=== PATIENT | female | born 1970 | race Caucasian/White ===

== ENCOUNTER 2017-04-10 17:36 | Emergency (ER) | payer MEDICAID, MEDICARE ==
[~2017-04-10] VITALS: Ht 165.1 cm; Wt 70.0 kg
[~2017-04-10 17:36] MED LIST: EC-N500T7 PO; FAMO20 PO; HYDR-2768 PO; ZOFR4TAB3 SL
[2017-04-10 17:38] VITALS: BP 186/100; PULSE 83; RESP 16; TEMP 98.6; O2SAT 98
[2017-04-10] MEDS ORDERED: DOXY100C PO (18:04)
[2017-04-10] MEDS ORDERED: LOTR15T TOPICAL (18:04)
[2017-04-10] MEDS ORDERED: ERYT2GEL9 TOPICAL (18:04)
--- NOTE | 2017-04-10 18:04 | PD ---
HPI Chief Complaint: rash Time Seen by Provider: 17:55 Travel History International Travel<30 days: No Contact w/Intl Traveler<30days: No Traveled to known affect area: No History of Present Illness HPI 46-year-old female complains of painful rash on the lower abdomen. 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 Patient states that a painful rash started about 2 days ago. Patient denies any fever chills. Patient denies any other problem. PFSH Past Medical History Diminished Hearing: Yes (Deaf) Gastrointestinal Disorders: Yes (IBS) Hypertension: Yes : 2 Para: 2 Past Surgical History Section: Yes (X1, One vaginal .) Social History Alcohol Use: No Tobacco Use: Yes Substance Use: No Allergies-Medications (Allergen,Severity, Reaction): Coded Allergies: penicillin G (Unverified Allergy, Unknown, 11/17/16) Reported Meds & Prescriptions Reported Meds & Active Scripts Active Doxycycline Hyclate 100 Mg Cap 100 Mg PO BID Erythromycin Topical (Erythromycin (Acne Aid) Topical) 2 % Gel 1 Applic TOPICAL BID Lotrisone Topical (Betamethasone/Clotrimazole) 1-0.05% Cream 1 Applic TOPICAL BID Naprosyn-Ec (Naproxen) 500 Mg Tab 500 Mg PO BID Pepcid 20 Mg Tab (Famotidine) 20 Mg Tab 20 Mg PO BID Zofran ODT (Ondansetron HCl) 4 Mg Tab 4 Mg SL Q6H PRN FOR NAUSEA/VOMITING Reported Hctz (Hydrochlorothiazide) 25 Mg Tab 25 Mg PO DAILY Review of Systems General / Constitutional: No: Fever Eyes: No: Visual changes HENT: No: Headaches Cardiovascular: No: Chest Pain or Discomfort Respiratory: No: Shortness of Breath Gastrointestinal: No: Abdominal Pain Genitourinary: No: Dysuria Musculoskeletal: No: Pain Skin: No Rash Neurologic: No: Weakness Psychiatric: No: Depression Endocrine: No: Polydipsia Hematologic/Lymphatic: No: Easy Bruising Physical Exam Narrative GENERAL: Well-nourished, well-developed patient. SKIN: Focused skin assessment warm/dry. HEAD: Normocephalic. EYES: No scleral icterus. No injection or drainage. NECK: Supple, trachea midline. No JVD or lymphadenopathy. CARDIOVASCULAR: Regular rate and rhythm without murmurs, gallops, or rubs. RESPIRATORY: Breath sounds equal bilaterally. No accessory muscle use. GASTROINTESTINAL: Abdomen soft, non-tender, nondistended. MUSCULOSKELETAL: No cyanosis, or edema. BACK: Nontender without obvious deformity. No CVA tenderness. Patient has a red moist rash on the skin fold on the lower abdomen area. No discharge. No induration. Mild tenderness on palpation. Data Data Last Documented VS Vital Signs Date Time Temp Pulse Resp B/P (MAP) Pulse Ox O2 Delivery O2 Flow Rate FiO2 04/10/17 17:38 98.6 83 16 186/100 (128) 98 MDM Medical Decision Making Medical Screen Exam Complete: Yes Emergency Medical Condition: Yes Differential Diagnosis Differential diagnosis including Tinea corporis, Erythrasma Narrative Course 46-year-old female with painful red rash lower abdomen skinfold. Diagnosis Primary Impression: Tinea corporis Additional Instructions: Take medications as directed. Follow-up with personal physician. Return if worse. Med/Other Pt SpecificInfo: Prescription(s) given Scripts Doxycycline Hyclate (Doxycycline Hyclate) 100 Mg Cap 100 MG PO BID for Infection, #20 CAP 0 Refills Prov: Delvis Leigh MD 04/10/17 Erythromycin (Acne Aid) Topical (Erythromycin Topical) 2 % Gel 1 APPLIC TOPICAL BID for Rash, #1 TUBE 0 Refills Prov: Delvis Leigh MD 04/10/17 Betamethasone-Clotrimazole Topical (Lotrisone Topical) 1-0.05% Cream 1 APPLIC TOPICAL BID for Fungal infection, #15 GM 0 Refills Prov: Delvis Leigh MD 04/10/17 Disposition: 01 DISCHARGE HOME Condition: Stable Delvis Leigh MD Apr 10, 2017 18:04
[2017-04-10] MEDS ORDERED: BETAMETHASONE/CLOTRIMAZOLE CREAM 15 GM TOPICAL ONE (19:30)
[2017-04-10] MEDS ORDERED: ERYTHROMYCIN 2% TOPICAL ONE (19:30)
[2017-04-10] MEDS ORDERED: DOXYCYCLINE HYCLATE 100 MG TAB PO ONE (19:30)
== END 2017-04-10 20:00 | disposition home or self-care (01) ==
LOC: NEPE 17:36
DX: B35.4 Tinea corporis (principal); I10 Essential (primary) hypertension; Z87.19 Personal history of other diseases of the digestive system; Z79.899 Other long term (current) drug therapy; Z72.0 Tobacco use; Z88.0 Allergy status to penicillin
CPT/HCPCS: 99283

== ENCOUNTER 2017-06-23 21:26 | Emergency (ER) | payer MEDICARE, OTHER ==
[~2017-06-23] VITALS: Ht 162.6 cm; Wt 80.0 kg
[~2017-06-23 21:26] MED LIST changes: +DOXY100C PO; +ERYT2GEL9 TOPICAL; +LOTR15T TOPICAL
[2017-06-23 22:05] VITALS: BP 171/99; PULSE 90; RESP 20; TEMP 100.2; O2SAT 97
[2017-06-23] MEDS ORDERED: SODIUM CHLORIDE 0.9% FLUSH 10 ML FLUSH IVF PRN (22:30)
--- NOTE | 2017-06-23 22:55 | RADRPT ---
EXAM DATE/TIME: 06/23/2017 22:35 [facility] COMPARISON: No previous studies available for comparison. INDICATIONS : Cough MEDICAL HISTORY : None. SURGICAL HISTORY : None. ENCOUNTER: Initial ACUITY: 1 day PAIN SCORE: 0/10 LOCATION: chest FINDINGS: A single view of the chest demonstrates the lungs to be symmetrically aerated without evidence of mas s, infiltrate or effusion. The cardiomediastinal contours are unremarkable. Osseous structures are intact. CONCLUSION: No acute disease. Micah Contreras MD on June 23, 2017 at 22:52 Board Certified Radiologist. This report was verified electronically.
[2017-06-23 23:05] LABS: AUTOMATED NEUTROPHIL # 2.8 TH/MM3 (1.8-7.7); BASOPHIL % 0.5 % (0.0-2.0); EOSINOPHIL # 0.1 TH/MM3 (0-0.4); EOSINOPHIL % 2.4 % (0.0-4.0); HEMATOCRIT 40.6 % (35.0-46.0); HEMOGLOBIN 13.7 GM/DL (11.6-15.3); LYMPH % 22.2 % (9.0-44.0); MEAN CELL VOLUME 91.2 FL (80.0-100.0); MEAN CORPUSCULAR HEMOGLOBIN 30.9 PG (27.0-34.0); MEAN CORPUSCULAR HGB CONC 33.9 % (32.0-36.0); MEAN PLATELET VOLUME 8.8 FL (7.0-11.0); MONOCYTE # 0.6 TH/MM3 (0-0.9); NEUT % 60.9 % (16.0-70.0); PLATELET COUNT 213 TH/MM3 (150-450); RED BLOOD COUNT 4.45 MIL/MM3 (4.00-5.30); RED CELL DISTRIBUTION WIDTH 13.3 % (11.6-17.2); WHITE BLOOD COUNT 4.6 TH/MM3 (4.0-11.0)
--- NOTE | 2017-06-23 23:21 | PD ---
HPI . Chest pain Chief Complaint: Chest Pain Time Seen by Provider: 22:29 Travel History International Travel<30 days: No Contact w/Intl Traveler<30days: No Traveled to known affect area: No History of Present Illness HPI This is a deaf patient who presents with her deaf but hearing 6-year- old child with a chief complaint of cough, myalgias and chest pain. Onset was 3 days. 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 The 6-year-old is not a reliable machine design checker. Therefore, history is sketchy at first. PFSH Past Medical History Diminished Hearing: Yes (Deaf) Gastrointestinal Disorders: Yes (IBS) Hypertension: Yes : 2 Para: 2 Miscarriage: 0 : 0 Past Surgical History Section: Yes (X1, One vaginal .) Social History Alcohol Use: No Tobacco Use: Yes Substance Use: No Allergies-Medications (Allergen,Severity, Reaction): Coded Allergies: penicillin G (Unverified Allergy, Unknown, 06/23/17) Reported Meds & Prescriptions Reported Meds & Active Scripts Active Doxycycline Hyclate 100 Mg Cap 100 Mg PO BID Erythromycin Topical (Erythromycin (Acne Aid) Topical) 2 % Gel 1 Applic TOPICAL BID Lotrisone Topical (Betamethasone/Clotrimazole) 1-0.05% Cream 1 Applic TOPICAL BID Naprosyn-Ec (Naproxen) 500 Mg Tab 500 Mg PO BID Pepcid 20 Mg Tab (Famotidine) 20 Mg Tab 20 Mg PO BID Zofran ODT (Ondansetron HCl) 4 Mg Tab 4 Mg SL Q6H PRN FOR NAUSEA/VOMITING Reported Hctz (Hydrochlorothiazide) 25 Mg Tab 25 Mg PO DAILY Review of Systems ROS Limitations: Hearing Impaired Physical Exam Narrative GENERAL: Anxious appearing. SKIN: warm/dry. Normal color. HEAD: Normocephalic. Atraumatic. EYES: Pupils equal and round. No scleral icterus. No injection or drainage. ENT: No nasal bleeding or discharge. Mucous membranes pink and moist. NECK: Trachea midline. Full range of motion without pain.. CARDIOVASCULAR: Regular rate and rhythm. Heart sounds are normal. RESPIRATORY: Frequent dry cough. No accessory muscle use. Clear to auscultation. Breath sounds equal bilaterally. MUSCULOSKELETAL: No obvious deformities. NEUROLOGICAL: Moving all 4 extremities equally. No obvious cranial nerve deficits. PSYCHIATRIC: Unable to assess. Data Data Last Documented VS Vital Signs Date Time Temp Pulse Resp B/P (MAP) Pulse Ox O2 Delivery O2 Flow Rate FiO2 06/23/17 22:05 100.2 90 20 171/99 (123) 97 Orders Orders Electrocardiogram (06/23/17 22:30) Basic Metabolic Panel (Bmp) (06/23/17 22:30) Complete Blood Count With Diff (06/23/17 22:30) Lactic Acid Sepsis Protocol (06/23/17 22:30) Influenzae A/B Antigen (06/23/17 22:30) Blood Culture (06/23/17 22:30) Chest, Single Ap (06/23/17 22:30) Iv Access Insert/Monitor (06/23/17 22:30) Sodium Chloride 0.9% Flush (Ns Flush) (06/23/17 22:30) Troponin I (06/23/17 22:30) Chlorphenir-Hydrocodone Liq (Tussionex L (06/23/17 23:30) Labs Laboratory Tests Test 06/23/17 22:35 06/23/17 22:48 White Blood Count 4.6 TH/MM3 Red Blood Count 4.45 MIL/MM3 Hemoglobin 13.7 GM/DL Hematocrit 40.6 % Mean Corpuscular Volume 91.2 FL Mean Corpuscular Hemoglobin 30.9 PG Mean Corpuscular Hemoglobin Concent 33.9 % Red Cell Distribution Width 13.3 % Platelet Count 213 TH/MM3 Mean Platelet Volume 8.8 FL Neutrophils (%) (Auto) 60.9 % Lymphocytes (%) (Auto) 22.2 % Monocytes (%) (Auto) 14.0 % Eosinophils (%) (Auto) 2.4 % Basophils (%) (Auto) 0.5 % Neutrophils # (Auto) 2.8 TH/MM3 Lymphocytes # (Auto) 1.0 TH/MM3 Monocytes # (Auto) 0.6 TH/MM3 Eosinophils # (Auto) 0.1 TH/MM3 Basophils # (Auto) 0.0 TH/MM3 CBC Comment DIFF FINAL Differential Comment Blood Urea Nitrogen 7 MG/DL Creatinine 0.80 MG/DL Random Glucose 86 MG/DL Calcium Level 8.4 MG/DL Sodium Level 138 MEQ/L Potassium Level 5.1 MEQ/L Chloride Level 103 MEQ/L Carbon Dioxide Level 26.9 MEQ/L Anion Gap 8 MEQ/L Estimat Glomerular Filtration Rate 78 ML/MIN Troponin I LESS THAN 0.02 NG/ML Lactic Acid Level 0.5 mmol/L MDM Medical Decision Making Medical Screen Exam Complete: Yes Emergency Medical Condition: Yes Interpretation(s) EKG shows a sinus rhythm with a rate of 79. No ST segment elevation or depression. Differential Diagnosis Differential diagnosis includes but is not limited to viral respiratory illness , bronchitis, pneumonia, allergies, CHF, asthma/COPD. Narrative Course This is a deaf patient who presents with a chief complaint of cough, chest discomfort and myalgias for 3 days. She has a persistent dry cough on exam but clear lungs. Chest x-ray is clear. The chest x-ray was independently read by me. I will give her some cough medicine while awaiting her laboratory evaluation. CBC & BMP Diagram 06/23/17 22:35 Calcium Level 8.4 L trop < 0.02 LA 0.5 flu screen neg. The patient will be discharged home with symptomatic treatment. Diagnosis Primary Impression: Cough Additional Impression: Chest pain Qualified Codes: R07.9 - Chest pain, unspecified Patient Instructions: General Instructions, Upper Respiratory Infection (DC) Additional Instructions: I recommend the use of a Neti Pot. You may use a nasal spray such as Afrin for up to 3 days as needed for nasal congestion. You may take an [id number]-[id number] antihistamine such as Zyrtec, Kareen or Claritin as needed for runny secretions. You may take pseudoephedrine as needed for congestion. You will need to sign for this at the pharmacy. You may take plain Mucinex, 1200 mg twice a day as needed for thick secretions. You may take a cough syrup such as Delsym as needed for cough. Motrin as needed for fever and body aches. Throat lozenges/sprays as needed for sore throat. Warm salt water gargles for sore throat. Hot tea with lemon and honey also helps soothe a sore throat. Med/Other Pt SpecificInfo: Prescription(s) given Scripts Hydrocodone-Chlorpheniramine 12 HR Liq (Tussionex Pennkinetic Ext 12 HR Liq) 10- 8 Mg/5 Ml Susp 5 ML PO Q12H Y for COUGH AND/OR COLD SYMPTOMS, #60 ML 0 Refills Prov: Concepcion Pond MD 06/24/17 Disposition: 01 DISCHARGE HOME Condition: Stable Concepcion Pond MD Jun 23, 2017 23:21
[2017-06-23] MEDS ORDERED: CHLORPHENIR/HYDROCOD LIQUID 8 MG/10 MG/5 ML CUP PO ONE (23:30)
[2017-06-23 23:32] LABS: TROPONIN I LESS THAN 0.02 NG/ML (0.02-0.05)
[2017-06-23 23:38] LABS: BICARBONATE 26.9 MEQ/L (21.0-32.0); BLOOD UREA NITROGEN 7 MG/DL (7-18); CALCIUM 8.4 MG/DL (8.5-10.1); CHLORIDE 103 MEQ/L (98-107); GLOMERULAR FILTRATION RATE 78 ML/MIN (>89); GLUCOSE,RANDOM 86 MG/DL (74-106); SODIUM (NA) 138 MEQ/L (136-145)
[2017-06-24] MEDS ORDERED: TUSSSUS2 PO (00:05)
[2017-06-24 00:40] VITALS: BP 153/85; PULSE 80; RESP 16; O2SAT 98
[2017-06-24 08:23] VITALS: BP 152/93; PULSE 95; RESP 16; TEMP 99.4; O2SAT 98
[2017-06-24] MEDS ORDERED: ONDANSETRON HCL 4 MG/2 ML VIAL IV PUSH ONE (11:00)
[2017-06-24] MEDS ORDERED: KETOROLAC TROMETHAMINE 30 MG/ML (IVP) VIAL IV PUSH ONE (11:00)
[2017-06-24 11:12] VITALS: BP 140/89; PULSE 80; RESP 14; O2SAT 98
[2017-06-24] MEDS ORDERED: PROCHLORPERAZINE INJ 10 MG/2 ML VIAL IV PUSH ONE (11:30)
--- NOTE | 2017-06-24 11:34 | PD ---
Physical Exam Narrative This patient was seen and evaluated by previous provider. 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 History and physical exam was completed with the assistance of solar photovoltaic electrician Aaron Moore using tactile sign language since pt is blind and deaf. This is a 46yo F who is blind and deaf here with c/o generalized bodyaches, headache , coughing and left leg cramps since yesterday. Said she felt nauseous and had a pinch in her stomach. However, pt is eating crackers and has no abdominal tenderness on exam. Pt denies any recent trauma or focal neurologic deficits. On physical exam, no focal neurologic deficit. Pt had labs drawn by previous team and showed no leukocytosis. H/H normal. Troponin negative. Lactic acid normal. CXR negative. Influenza negative. Blood culture negative preliminary. Initially temperature was 100.2F. Current temp is 99.4F. Pt was given multiple pain medications for headache and back pain and now is resting comfortably in bed. Pt has her knees bend and sleeping. Pt reevaluated at bedside and feels much better. Said headache and back pain has completely resolved. Think this is more viral syndrome. This has all been translated by solar photovoltaic electrician Mr. Moore. Return precautions given. Data Data Last Documented VS Vital Signs Date Time Temp Pulse Resp B/P (MAP) Pulse Ox O2 Delivery O2 Flow Rate FiO2 06/24/17 13:31 06/24/17 12:47 66 16 97 Room Air 06/24/17 08:23 99.4 Orders Orders Electrocardiogram (06/23/17 22:30) Basic Metabolic Panel (Bmp) (06/23/17 22:30) Complete Blood Count With Diff (06/23/17 22:30) Lactic Acid Sepsis Protocol (06/23/17 22:30) Influenzae A/B Antigen (06/23/17 22:30) Blood Culture (06/23/17 22:30) Chest, Single Ap (06/23/17 22:30) Iv Access Insert/Monitor (06/23/17 22:30) Sodium Chloride 0.9% Flush (Ns Flush) (06/23/17 22:30) Troponin I (06/23/17 22:30) Chlorphenir-Hydrocodone Liq (Tussionex L (06/23/17 23:30) Ketorolac Inj (Toradol Inj) (06/24/17 11:00) Ondansetron Inj (Zofran Inj) (06/24/17 11:00) Prochlorperazine Inj (Compazine Inj) (06/24/17 11:30) Morphine Inj (Morphine Inj) (06/24/17 12:15) Ed Discharge Order (06/24/17 13:08) Labs Laboratory Tests Test 06/23/17 22:35 06/23/17 22:48 White Blood Count 4.6 TH/MM3 Red Blood Count 4.45 MIL/MM3 Hemoglobin 13.7 GM/DL Hematocrit 40.6 % Mean Corpuscular Volume 91.2 FL Mean Corpuscular Hemoglobin 30.9 PG Mean Corpuscular Hemoglobin Concent 33.9 % Red Cell Distribution Width 13.3 % Platelet Count 213 TH/MM3 Mean Platelet Volume 8.8 FL Neutrophils (%) (Auto) 60.9 % Lymphocytes (%) (Auto) 22.2 % Monocytes (%) (Auto) 14.0 % Eosinophils (%) (Auto) 2.4 % Basophils (%) (Auto) 0.5 % Neutrophils # (Auto) 2.8 TH/MM3 Lymphocytes # (Auto) 1.0 TH/MM3 Monocytes # (Auto) 0.6 TH/MM3 Eosinophils # (Auto) 0.1 TH/MM3 Basophils # (Auto) 0.0 TH/MM3 CBC Comment DIFF FINAL Differential Comment Blood Urea Nitrogen 7 MG/DL Creatinine 0.80 MG/DL Random Glucose 86 MG/DL Calcium Level 8.4 MG/DL Sodium Level 138 MEQ/L Potassium Level 5.1 MEQ/L Chloride Level 103 MEQ/L Carbon Dioxide Level 26.9 MEQ/L Anion Gap 8 MEQ/L Estimat Glomerular Filtration Rate 78 ML/MIN Troponin I LESS THAN 0.02 NG/ML Lactic Acid Level 0.5 mmol/L MDM Supervised Visit with MARY: No Diagnosis Primary Impression: Viral syndrome Additional Impressions: Headache Qualified Codes: R51 - Headache Cough Patient Instructions: General Instructions, Upper Respiratory Infection (DC) Departure Forms: Tests/Procedures Additional Instruction: I recommend the use of a Neti Pot. You may use a nasal spray such as Afrin for up to 3 days as needed for nasal congestion. You may take an kzbx-[id number]-[id number] antihistamine such as Zyrtec, Kareen or Claritin as needed for runny secretions. You may take pseudoephedrine as needed for congestion. You will need to sign for this at the pharmacy. You may take plain Mucinex, 1200 mg twice a day as needed for thick secretions. You may take a cough syrup such as Delsym as needed for cough. Motrin as needed for fever and body aches. Throat lozenges/sprays as needed for sore throat. Warm salt water gargles for sore throat. Hot tea with lemon and honey also helps soothe a sore throat. Scripts Hydrocodone-Chlorpheniramine 12 HR Liq (Tussionex Pennkinetic Ext 12 HR Liq) 10- 8 Mg/5 Ml Susp 5 ML PO Q12H Y for COUGH AND/OR COLD SYMPTOMS, #60 ML 0 Refills Prov: Concepcion Pond MD 06/24/17 Disposition: 01 DISCHARGE HOME Condition: Stable Shanice Mccoy DO Jun 24, 2017 11:34
[2017-06-24] MEDS ORDERED: MORPHINE SULFATE 4 MG/ML INJ IV PUSH ONE (12:15)
[2017-06-24 12:47] VITALS: BP 113/66; PULSE 66; RESP 16; O2SAT 97
--- NOTE | 2017-06-24 18:29 | EKG ---
Date Performed: 06/23/2017 Time Performed: 22:43:26 PTAGE: 46 years EKG: Sinus rhythm WITH SHORT MA INTERVAL POSSIBLE RIGHT VENTRICULAR CONDUCTION DELAY BORDERLINE ECG NO PREVIOUS TRACING DOCTOR: Lewis Kazt Interpretating Date/Time 06/24/2017 18:27:46
== END 2017-06-24 13:53 | disposition home or self-care (01) ==
LOC: NEPE 21:26
DX: B34.9 Viral infection, unspecified (principal); R51 Headache; R05 Cough; R07.9 Chest pain, unspecified; I10 Essential (primary) hypertension; Z72.0 Tobacco use
CPT/HCPCS: 71045; 80048; 83605; 84484; 85025; 87040; 87804; 93005; 96374; 96375; 99285; J0780; J1885; J2270; J2405

== ENCOUNTER 2017-06-26 23:19 | Inpatient (IN) | payer MEDICARE, OTHER ==
[~2017-06-26] VITALS: Ht 162.6 cm; Wt 75.0 kg
[~2017-06-26 23:19] MED LIST changes: +TUSSSUS2 PO
[2017-06-26] MEDS ORDERED: IOHEXOL 350 MG/ML 10 ML VIAL (for RAD DIAG) IVCONTRAST ONE (23:20)
[2017-06-26 23:29] VITALS: BP 148/93; PULSE 96; RESP 16; TEMP 100.9; O2SAT 97
[2017-06-26 23:31] VITALS: RESP 16; O2SAT 96
--- NOTE | 2017-06-26 23:48 | RADRPT ---
EXAM DATE/TIME: 06/26/2017 23:37 [facility] COMPARISON: CHEST SINGLE AP, June 23, 2017, 22:35. INDICATIONS : Pain to left side of chest. MEDICAL HISTORY : None. SURGICAL HISTORY : None. ENCOUNTER: Initial ACUITY: 1 day PAIN SCORE: 5/10 LOCATION: Bilateral chest FINDINGS: A single view of the chest demonstrates the lungs to be symmetrically aerated without evidence of mas s, infiltrate or effusion. The cardiomediastinal contours are unremarkable. Osseous structures are intact. CONCLUSION: No acute disease. Tor Trevino MD on June 26, 2017 at 23:45 Board Certified Radiologist. This report was verified electronically.
[2017-06-27 00:03] LABS: AUTOMATED NEUTROPHIL # 2.7 TH/MM3 (1.8-7.7); BASOPHIL % 0.4 % (0.0-2.0); EOSINOPHIL % 0.5 % (0.0-4.0); HEMATOCRIT 35.8 % (35.0-46.0); HEMOGLOBIN 12.2 GM/DL (11.6-15.3); LYMPH % 19.4 % (9.0-44.0); LYMPHOCYTE # 0.7 TH/MM3 (1.0-4.8); MEAN CELL VOLUME 90.7 FL (80.0-100.0); MEAN CORPUSCULAR HEMOGLOBIN 30.8 PG (27.0-34.0); MEAN PLATELET VOLUME 8.5 FL (7.0-11.0); MONO % 8.6 % (0.0-8.0); MONOCYTE # 0.3 TH/MM3 (0-0.9); NEUT % 71.1 % (16.0-70.0); PLATELET COUNT 127 TH/MM3 (150-450); RED BLOOD COUNT 3.95 MIL/MM3 (4.00-5.30); WHITE BLOOD COUNT 3.8 TH/MM3 (4.0-11.0)
--- NOTE | 2017-06-27 00:12 | PD ---
HPI Chief Complaint: Pain: Acute or Chronic Time Seen by Provider: 23:22 Travel History International Travel<30 days: No Contact w/Intl Traveler<30days: No Traveled to known affect area: No History of Present Illness HPI This is a 46-year-old female with a history of being blind and . The patient was seen here 2 days ago for fever and URI type symptoms. The patient presents today with her son. Reportedly her significant other is also on his way in here. The patient 2 days ago requested the photonics technician with [employer] deaf services. According to the charge nurse the service is not available overnight and they had to wait until the morning to use the service. The patient states that the sign language on video is not acceptable because she could not read and see it. Through writing and exam, patient complained of cough and left flank pain radiating to her left upper abdominal area. There is also reported a fever. Patient also states that she has pain down her legs bilaterally. 2 days ago, she had negative influenza and blood cultures were drawn at that time. Nothing has grown out from the blood cultures and influenza test was negative. The patient reportedly was at the [facility] when the paramedics picked her up. Temperature here was 100.9. PFSH Past Medical History Diminished Hearing: Yes (Deaf) Gastrointestinal Disorders: Yes (IBS) Hypertension: Yes Tetanus Vaccination: Unknown Influenza Vaccination: No ?: Not : 2 Para: 2 Miscarriage: 0 : 0 Past Surgical History Surgical History: No Previous Surgery Section: Yes (X1, One vaginal .) Social History Alcohol Use: No Tobacco Use: Yes Substance Use: No Allergies-Medications (Allergen,Severity, Reaction): Coded Allergies: penicillin G (Unverified Allergy, Unknown, 06/26/17) Reported Meds & Prescriptions Reported Meds & Active Scripts Active Tussionex Pennkinetic Ext 12 HR Liq (Hydrocodone-Chlorpheniramine 12 HR Liq) 10- 8 Mg/5 Ml Susp 5 Ml PO Q12H PRN Doxycycline Hyclate 100 Mg Cap 100 Mg PO BID Erythromycin Topical (Erythromycin (Acne Aid) Topical) 2 % Gel 1 Applic TOPICAL BID Lotrisone Topical (Betamethasone/Clotrimazole) 1-0.05% Cream 1 Applic TOPICAL BID Naprosyn-Ec (Naproxen) 500 Mg Tab 500 Mg PO BID Pepcid 20 Mg Tab (Famotidine) 20 Mg Tab 20 Mg PO BID Zofran ODT (Ondansetron HCl) 4 Mg Tab 4 Mg SL Q6H PRN FOR NAUSEA/VOMITING Reported Hctz (Hydrochlorothiazide) 25 Mg Tab 25 Mg PO DAILY Review of Systems Except as stated in HPI: all other systems reviewed are Neg General / Constitutional: Positive: Fever, No: Chills HENT: No: Headaches Cardiovascular: No: Chest Pain or Discomfort Respiratory: Positive: Cough, No: Shortness of Breath Gastrointestinal: Positive: Abdominal Pain (Left upper and left flank), No: Nausea, Vomiting, Dysphagia Genitourinary: Positive: Flank Pain (Left) Musculoskeletal: Positive: Pain (Bilateral leg) Physical Exam Narrative GENERAL: Well-nourished, well-developed patient, in no acute respiratory distress. The patient is gesturing towards me where she is complaining of pain in her flank and upper abdomen. SKIN: Focused skin assessment warm/dry. HEAD: Normocephalic/atraumatic. EYES: No scleral icterus. No injection or drainage. NECK: Supple, trachea midline. CARDIOVASCULAR: Regular rate and rhythm without murmurs, gallops, or rubs. RESPIRATORY: Breath sounds equal bilaterally. No accessory muscle use. GASTROINTESTINAL: Abdomen soft, non-tender, nondistended. Subjective left upper quadrant pain. No rebound. MUSCULOSKELETAL: No cyanosis, or edema. BACK: Subjective left CVA tenderness. Tenderness on percussion. NEUROLOGICAL: Awake and alert. Nonverbal secondary to her deafness. Cranial nerves II through XII intact. Motor and sensory grossly within normal limits. Five out of 5 muscle strength in all muscle groups. Data Data Last Documented VS Vital Signs Date Time Temp Pulse Resp B/P (MAP) Pulse Ox O2 Delivery O2 Flow Rate FiO2 06/26/17 23:31 16 96 Room Air 06/26/17 23:29 100.9 96 148/93 (111) Orders Orders Complete Blood Count With Diff (06/26/17 23:24) Comprehensive Metabolic Panel (06/26/17 23:24) Urinalysis - C+S If Indicated (06/26/17 23:24) Chest, Single Ap (06/26/17 23:24) Iv Access Insert/Monitor (06/26/17 23:24) Ecg Monitoring (06/26/17 23:24) Oximetry (06/26/17 23:24) Ct Abd/Pel W Iv Contrast(Rout) (06/26/17 23:27) Ed Urine Pregnancytest Poc (06/26/17 23:27) Oral Contrast - Adult (06/27/17 00:01) Diatrizoate Liq (Md Ventura Liq) (06/27/17 00:25) Iohexol 350 Inj (Omnipaque 350 Inj) (06/26/17 23:20) Levofloxacin 500 Mg Premix Inj (Levaquin (06/27/17 02:45) Metronidazole 500 Mg Inj (Flagyl 500 Mg (06/27/17 02:45) Metronidazole 500 Mg Inj (Flagyl 500 Mg (06/27/17 10:00) Ciprofloxacin 400 Mg Premix (Cipro 400 M (06/27/17 18:00) Admit To Inpatient (06/27/17 ) Vital Signs (Adult) Q4H (06/27/17 04:39) Activity Oob With Assistance (06/27/17 04:39) Bioinformatics Support Specialist / Telemetry .CONTINUOUS (06/27/17 04:39) Intake + Output LIUS CARLOS.QSHIFT (06/27/17 04:39) Diet Regular Basic (06/27/17 Breakfast) Sodium Chlor 0.9% 1000 Ml Inj (Ns 1000 M (06/27/17 04:39) Sodium Chloride 0.9% Flush (Ns Flush) (06/27/17 04:45) Sodium Chloride 0.9% Flush (Ns Flush) (06/27/17 09:00) Ondansetron Inj (Zofran Inj) (06/27/17 04:45) Comprehensive Metabolic Panel (06/28/17 06:00) Complete Blood Count With Diff (06/28/17 06:00) Case Management Consult (06/27/17 04:39) Scd Bilateral/Knee High LUIS CARLOS.BID (06/27/17 04:39) Adrian Bilateral/Knee High LUIS CARLOS.QSHIFT (06/27/17 04:41) Acetaminophen (Tylenol) (06/27/17 04:45) Acetamin-Hydrocod 325-5 Mg (Steele 5-325 (06/27/17 04:45) Morphine Inj (Morphine Inj) (06/27/17 04:45) Docusate Sodium-Senna (Mercedes-Colace) (06/27/17 09:00) Magnesium Hydroxide Liq (Milk Of Magnesi (06/27/17 04:45) Sennosides (Senokot) (06/27/17 04:45) Bisacodyl Supp (Dulcolax Supp) (06/27/17 04:45) Lactulose Liq (Lactulose Liq) (06/27/17 04:45) Inpatient Certification (06/27/17 ) Admit Order (Ed Use Only) (06/27/17 04:50) Labs Laboratory Tests Test 06/26/17 23:30 06/27/17 00:45 White Blood Count 3.8 TH/MM3 Red Blood Count 3.95 MIL/MM3 Hemoglobin 12.2 GM/DL Hematocrit 35.8 % Mean Corpuscular Volume 90.7 FL Mean Corpuscular Hemoglobin 30.8 PG Mean Corpuscular Hemoglobin Concent 34.0 % Red Cell Distribution Width 13.0 % Platelet Count 127 TH/MM3 Mean Platelet Volume 8.5 FL Neutrophils (%) (Auto) 71.1 % Lymphocytes (%) (Auto) 19.4 % Monocytes (%) (Auto) 8.6 % Eosinophils (%) (Auto) 0.5 % Basophils (%) (Auto) 0.4 % Neutrophils # (Auto) 2.7 TH/MM3 Lymphocytes # (Auto) 0.7 TH/MM3 Monocytes # (Auto) 0.3 TH/MM3 Eosinophils # (Auto) 0.0 TH/MM3 Basophils # (Auto) 0.0 TH/MM3 CBC Comment DIFF FINAL Differential Comment Blood Urea Nitrogen 7 MG/DL Creatinine 0.75 MG/DL Random Glucose 93 MG/DL Total Protein 6.1 GM/DL Albumin 3.2 GM/DL Calcium Level 7.7 MG/DL Alkaline Phosphatase 48 U/L Aspartate Amino Transf (AST/SGOT) 21 U/L Alanine Aminotransferase (ALT/SGPT) 15 U/L Total Bilirubin 0.1 MG/DL Sodium Level 139 MEQ/L Potassium Level 3.7 MEQ/L Chloride Level 106 MEQ/L Carbon Dioxide Level 25.1 MEQ/L Anion Gap 8 MEQ/L Estimat Glomerular Filtration Rate 84 ML/MIN Urine Color YELLOW Urine Turbidity HAZY Urine pH 5.5 Urine Specific [place] 1.016 Urine Protein NEG mg/dL Urine Glucose (UA) NEG mg/dL Urine Ketones NEG mg/dL Urine Occult Blood NEG Urine Nitrite NEG Urine Bilirubin NEG Urine Urobilinogen LESS THAN 2.0 MG/DL Urine Leukocyte Esterase NEG Urine RBC 3 /hpf Urine WBC 1 /hpf Urine Squamous Epithelial Cells 7 /hpf Urine Mucus FEW /lpf Microscopic Urinalysis Comment CULT NOT INDICATED MDM Medical Decision Making Medical Screen Exam Complete: Yes Emergency Medical Condition: Yes Differential Diagnosis Pyelonephritis versus pneumonia versus diverticulitis Narrative Course 46-year-old female who is deaf and blind, patient presents today with complaints of abdominal pain. Patient reports pain in her left flank with radiation to her left upper abdominal area. There is fever. She was seen here 2 days ago for respiratory symptoms which was negative. The patient has a white count of below 4. The patient's CT scan shows colitis. Given the patient 's symptoms and presentation and continued fever, the patient will be admitted for IV antibiotics and IV fluids. [facility]. [facility] She agrees with the above plan. Diagnosis Primary Impression: Colitis Additional Impressions: Intractable pain Deaf-mutism Legally blind Admitting Information Admitting Physician Requests: Admit Winston Parisi MD Jun 27, 2017 00:12
[2017-06-27 00:16] LABS: ALKALINE PHOSPHATASE 48 U/L (45-117); TOTAL BILIRUBIN ADULT 0.1 MG/DL (0.2-1.0); TOTAL PROTEIN 6.1 GM/DL (6.4-8.2)
[2017-06-27 00:21] LABS: ALBUMIN 3.2 GM/DL (3.4-5.0); ALT (GPT) 15 U/L (10-53); AST (GOT) 21 U/L (15-37); BICARBONATE 25.1 MEQ/L (21.0-32.0); BLOOD UREA NITROGEN 7 MG/DL (7-18); CALCIUM 7.7 MG/DL (8.5-10.1); CHLORIDE 106 MEQ/L (98-107); CREATININE 0.75 MG/DL (0.50-1.00); GLOMERULAR FILTRATION RATE 84 ML/MIN (>89); GLUCOSE,RANDOM 93 MG/DL (74-106); SODIUM (NA) 139 MEQ/L (136-145)
[2017-06-27] MEDS ORDERED: DIATRIZOATE MEGLUM/DIATRIZOATE SOD 9 ML CUP ONE (00:25)
[2017-06-27 01:35] LABS: BILIRUBIN, URINE NEG (NEG); BLOOD, URINE NEG (NEG); GLUCOSE,URINE NEG (NEG); KETONE, URINE NEG (NEG); MUCUS URINE FEW /lpf (OCC); NITRITE,URINE NEG (NEG); PH, URINE 5.5 (5.0-8.5); SQUAMOUS EPITHELIAL CELL URINE 7 /hpf (0-5); URINE COLOR YELLOW (YELLW/STRAW); URINE LEUKOCYTE ESTERASE NEG (NEG)
--- NOTE | 2017-06-27 02:08 | RADRPT ---
EXAM DATE/TIME: 06/27/2017 01:53 [facility] COMPARISON: No previous studies available for comparison. INDICATIONS : Abdomen pain with fever. IV CONTRAST: 75 cc Omnipaque 350 (iohexol) IV ORAL CONTRAST: Prescribed oral contrast ingested. RADIATION DOSE: 7.63 CTDIvol (mGy) MEDICAL HISTORY : Hypertension. Irritable bowel syndrome. SURGICAL HISTORY : section. ENCOUNTER: Initial ACUITY: 1 day PAIN SCALE: 7/10 LOCATION: Bilateral abdomen TECHNIQUE: Volumetric scanning of the abdomen and pelvis was performed. Using automated exposure control and ad justment of the mA and/or kV according to patient size, radiation dose was kept as low as reasonably achievable to obtain optimal diagnostic quality images. DICOM format image data is available electro nically for review and comparison. FINDINGS: LOWER LUNGS: The visualized lower lungs are clear. LIVER: Homogeneous density without lesion. There is no dilation of the biliary tree. No calcified gallston es. SPLEEN: Normal size without lesion. PANCREAS: Within normal limits. KIDNEYS: Normal in size and shape. There is no mass, stone or hydronephrosis. Several punctate bilateral sterling l calculi measuring 1-2 mm. ADRENAL GLANDS: 13 mm nodule right adrenal gland. Left implant normal VASCULAR: There is no aortic aneurysm. BOWEL/MESENTERY: There does appear to be wall thickening ascending and transverse colon. A. There is no free intraper itoneal air or fluid. ABDOMINAL WALL: Within normal limits. RETROPERITONEUM: There is no lymphadenopathy. BLADDER: No wall thickening or mass. Small calcification anterior urinary bladder measuring over 5 mm. REPRODUCTIVE: Within normal limits. INGUINAL: There is no lymphadenopathy or hernia. MUSCULOSKELETAL: Within normal limits for patient age. CONCLUSION: 1. Wall thickening within the ascending and transverse colon which can be seen with colitis. 2. Small right adrenal nodule likely benign. 3. Several punctate nonobstructing renal calculi. Tor Trevino MD on June 27, 2017 at 2:02 Board Certified Radiologist. This report was verified electronically.
[2017-06-27] MEDS ORDERED: metroNIDAZOLE 500 MG INJ 100 ML IV ONE (02:45)
[2017-06-27] MEDS ORDERED: LEVOFLOXACIN 500 MG PREMIX INJ 100 ML IV ONE (02:45)
[2017-06-27] MEDS: SODIUM CHLOR 0.9% 1000 ML INJ 1,000 ML IV SCH ×2 (04:39→14:39)
[2017-06-27] MEDS ORDERED: MAGNESIUM HYDROXIDE SUSP 30 ML CUP PO PRN (04:45)
[2017-06-27] MEDS ORDERED: LACTULOSE SYRUP 20 GM/30 ML CUP PO PRN (04:45)
[2017-06-27] MEDS ORDERED: SENNOSIDES 8.6 MG TAB PO PRN (04:45)
[2017-06-27] MEDS ORDERED: ACETAMINOPHEN/HYDROcodone 325 MG/5 MG TAB PO PRN (04:45)
[2017-06-27] MEDS ORDERED: BISACODYL 10 MG SUPP RECTAL PRN (04:45)
[2017-06-27] MEDS ORDERED: SODIUM CHLORIDE 0.9% FLUSH 10 ML FLUSH IV FLUSH PRN (04:45)
[2017-06-27] MEDS ORDERED: ACETAMINOPHEN 325 MG TAB PO PRN (04:45)
[2017-06-27 05:00] VITALS: BP 121/66; PULSE 98; RESP 19; O2SAT 98
--- NOTE | 2017-06-27 05:22 | HHI.HP ---
[facility] No Primary Care Physician Admission Diagnosis intractable abdominal pain, colitis, Diagnoses: (1) Sepsis Diagnosis: Principal (2) Colitis Diagnosis: Principal (3) Intractable pain Diagnosis: Principal (4) Deaf-mutism Diagnosis: Principal Travel History International Travel<30 Days: No Contact w/Intl Traveler <30 Da: No Traveled to Known Affected Are: No History of Present Illness This is a 46-year-old Deaf-Mute female with a PMH of HTN and IBS who presented to the ER with complaints of abdominal pain in addition to fever. Accompanied by and son, is blind. Patient requesting spanish medical interpreter services through [email or web address], however unavailable at this time, patient declining other spanish medical interpreter services. History obtained from patient in writing. Recent ER presentation 06/23/17 for viral syndrome. Returns now w/ abdominal pain and fever. Temp 100.9 at home. Abdominal pain diffuse, intermittent, cramping, 8/ 10. No nausea, vomiting or diarrhea. On arrival, BP 148/93, HR 96, O2 sat 97% on RA, Temp 100.9. WBC 3.8. Platelets 127. Chemistry essentially unremarkable. UA negative. CT Abdomen/Pelvis with wall thickening of ascending and transverse colon, likely colitis. CXR with no acute findings. s/ p Levaquin/Flagyl in the ER. Review of Systems Except as stated in HPI: all other systems reviewed are Neg ROS: 14 point review of systems otherwise negative. Past Family Social History Past Medical History PMH: HTN and IBS Past Surgical History PAST SURGICAL HISTORY: Allergies: Coded Allergies: penicillin G (Unverified Allergy, Unknown, 06/26/17) Family History PAST FAMILY HISTORY: Reviewed. No h/o DM or CAD Social History PAST SOCIAL HISTORY: Negative for alcohol or drugs. Positive for tobacco. Physical Exam Vital Signs Vital Signs Date Time Temp Pulse Resp B/P (MAP) Pulse Ox O2 Delivery O2 Flow Rate FiO2 06/26/17 23:31 16 96 Room Air 06/26/17 23:29 100.9 96 16 148/93 (111) 97 06/26/17 23:25 16 Physical Exam PE: GENERAL: Middle-aged white female in mild distress due to pain. Deaf/mute, communicates via handwriting. and son at bedside HEENT: PERRLA, EOMI. No scleral icterus or conjunctival pallor. No lid lag or facial droop. CARDIOVASCULAR: Regular rate and rhythm. No obvious murmurs to auscultation. No chest tenderness to palpation. RESPIRATORY: No obvious rhonchi or wheezing. Clear to auscultation. Breath sounds equal bilaterally. GASTROINTESTINAL: Abdomen soft, generalized tenderness to palpation, nondistended. BS normal. MUSCULOSKELETAL: Extremities without clubbing, cyanosis, or edema. No obvious deformities. NEUROLOGICAL: Awake, alert and oriented x4. No focal neurologic deficits. Moving both upper and lower extremities spontaneously. Laboratory Laboratory Tests Test 06/26/17 23:30 06/27/17 00:45 White Blood Count 3.8 Red Blood Count 3.95 Hemoglobin 12.2 Hematocrit 35.8 Mean Corpuscular Volume 90.7 Mean Corpuscular Hemoglobin 30.8 Mean Corpuscular Hemoglobin Concent 34.0 Red Cell Distribution Width 13.0 Platelet Count 127 Mean Platelet Volume 8.5 Neutrophils (%) (Auto) 71.1 Lymphocytes (%) (Auto) 19.4 Monocytes (%) (Auto) 8.6 Eosinophils (%) (Auto) 0.5 Basophils (%) (Auto) 0.4 Neutrophils # (Auto) 2.7 Lymphocytes # (Auto) 0.7 Monocytes # (Auto) 0.3 Eosinophils # (Auto) 0.0 Basophils # (Auto) 0.0 CBC Comment DIFF FINAL Differential Comment Blood Urea Nitrogen 7 Creatinine 0.75 Random Glucose 93 Total Protein 6.1 Albumin 3.2 Calcium Level 7.7 Alkaline Phosphatase 48 Aspartate Amino Transf (AST/SGOT) 21 Alanine Aminotransferase (ALT/SGPT) 15 Total Bilirubin 0.1 Sodium Level 139 Potassium Level 3.7 Chloride Level 106 Carbon Dioxide Level 25.1 Anion Gap 8 Estimat Glomerular Filtration Rate 84 Urine Color YELLOW Urine Turbidity HAZY Urine pH 5.5 Urine Specific [place] 1.016 Urine Protein NEG Urine Glucose (UA) NEG Urine Ketones NEG Urine Occult Blood NEG Urine Nitrite NEG Urine Bilirubin NEG Urine Urobilinogen LESS THAN 2.0 Urine Leukocyte Esterase NEG Urine RBC 3 Urine WBC 1 Urine Squamous Epithelial Cells 7 Urine Mucus FEW Microscopic Urinalysis Comment CULT NOT INDICATED Result Diagram: 06/26/17232906/26/172329 Caprini VTE Risk Assessment Caprini VTE Risk Assessment: No/Low Risk (score <= 1) Caprini Risk Assessment Model Point Value = 1 Point Value = 2 Point Value = 3 Point Value = 5 Age 41-60 Minor surgery BMI > 25 kg/m2 Swollen legs Varicose veins or History of unexplained or recurrent spontaneous Oral contraceptives or hormone replacement Sepsis (< 1 month) Serious lung disease, including pneumonia (< 1 month) Abnormal pulmonary function Acute myocardial infarction Congestive heart failure (< 1 month) History of inflammatory bowel disease Medical patient at bed rest Age 61-74 Arthroscopic surgery Major open surgery (> 45 min) Laparoscopic surgery (> 45 min) Malignancy Confined to bed (> 72 hours) Immobilizing plaster cast Central venous access Age >= 75 History of VTE Family history of VTE Factor V Leiden Prothrombin [id number] Lupus anticoagulant Anticardiolipin antibodies Elevated serum homocysteine Heparin-induced thrombocytopenia Other congenital or acquired thrombophilia Stroke (< 1 month) Elective arthroplasty Hip, pelvis, or leg fracture Acute spinal cord injury (< 1 month) Prophylaxis Regimen Total Risk Factor Score Risk Level Prophylaxis Regimen 0-1 Low Early ambulation 2 Moderate Order ONE of the following: *Sequential Compression Device (SCD) *Heparin 5000 units SQ BID 3-4 Higher Order ONE of the following medications: *Heparin 5000 units SQ TID *Enoxaparin/Lovenox 40 mg SQ daily (WT < 150 kg, CrCl > 30 mL/min) *Enoxaparin/Lovenox 30 mg SQ daily (WT < 150 kg, CrCl > 10-29 mL/min) *Enoxaparin/Lovenox 30 mg SQ BID (WT < 150 kg, CrCl > 30 mL/min) AND/OR *Sequential Compression Device (SCD) 5 or more Highest Order ONE of the following medications: *Heparin 5000 units SQ TID (Preferred with Epidurals) *Enoxaparin/Lovenox 40 mg SQ daily (WT < 150 kg, CrCl > 30 mL/min) *Enoxaparin/Lovenox 30 mg SQ daily (WT < 150 kg, CrCl > 10-29 mL/min) *Enoxaparin/Lovenox 30 mg SQ BID (WT < 150 kg, CrCl > 30 mL/min) AND *Sequential Compression Device (SCD) Assessment and Plan Problem List: (1) Sepsis ICD Code: A41.9 - Sepsis, unspecified organism (2) Colitis ICD Code: K52.9 - Noninfective gastroenteritis and colitis, unspecified (3) Intractable pain ICD Code: R52 - Pain, unspecified (4) Deaf-mutism ICD Code: H91.3 - Deaf nonspeaking, not elsewhere classified Assessment and Plan A/P: 1. Sepsis: Temp 100.9, HR 96, WBC 3.8, Source-colitis. s/p IV Abx in ER, will continue w/ IV Abx. 2. Colitis: CT Abd/Pelvis w/ colitis, images reviewed by me. Continue IV Cipro/Flagyl, repeat labs in am, IVF for hydration. 3. Intractable Abd Pain: secondary to above, analgesics/antiemetics as needed. 4. Deaf-Mute: Requesting [employer] deputy clerk of superior court services, however unable until am, declining video sign language as she has difficulty w/ vision. Communicating via handwritten messages. at bedside is blind. Son also at bedside. 5. DVT Prophylaxis: SCD/Teds. 6. Social work for d/c planning as needed. 7. Case discussed w/ ER physician at length, labs/records/imaging reviewed by me. Physician Certification 2 Midnight Certification Type: Admission for Inpatient Services Order for Inpatient Services The services are ordered in accordance with Medicare regulations or non- Medicare payer requirements, as applicable. In the case of services not specified as inpatient-only, they are appropriately provided as inpatient services in accordance with the 2-midnight benchmark. Estimated LOS (days): 2 days is the estimated time the patient will need to remain in the hospital, assuming treatment plan goals are met and no additional complications. Post-Hospital Plan: Not yet determined Daisy Art MD Jun 27, 2017 05:22
[2017-06-27] MEDS: SODIUM CHLORIDE 0.9% FLUSH 10 ML FLUSH IV FLUSH SCH ×2 (09:00→21:00)
[2017-06-27] MEDS: DOCUSATE SODIUM 50 MG/SENNA 8.6 MG TAB PO SCH ×2 (09:00→22:46)
[2017-06-27 09:03] VITALS: BP 138/88; PULSE 85; RESP 16; TEMP 99.5; O2SAT 95
[2017-06-27] MEDS: metroNIDAZOLE 500 MG INJ 100 ML IV SCH ×2 (10:16→17:03)
[2017-06-27 11:37] VITALS: BP 125/77; PULSE 83; RESP 16; TEMP 98.7; O2SAT 95
[2017-06-27] MEDS: MORPHINE SULFATE 2 MG/ML INJ IV PUSH PRN ×2 (12:04→18:05)
[2017-06-27 15:44] VITALS: BP 127/77; PULSE 87; RESP 16; TEMP 98.9; O2SAT 97
[2017-06-27] MEDS: CIPROFLOXACIN 400 MG PREMIX 200 ML IV SCH (18:05)
--- NOTE | 2017-06-27 18:24 | HHI.PR ---
Addendum To [facility] Progress Not Reason for addendum: Additonal documentation Addendum Remarks Patient seen and examined with Dr. Leonard and RN and language interpreter at bedside. She reports diffuse leg pains and associated weakness, mildly improved compared to arrival. Has continued diffuse lower abdominal pain and subjective fevers/ chills and sweats. Denies nausea/vomiting. She was having diarrhea prior to arrival, now improved. No other medical complaints at this time. Continue current plan with IV Antibiotics Cipro/Flagyl and pain control. Check for influenza. Repeat labs in am. Sepideh Macedo PA-C Jun 27, 2017 6:24 pm
[2017-06-27] MEDS: ONDANSETRON HCL 4 MG/2 ML VIAL IVP PRN (19:49)
[2017-06-27 22:31] VITALS: BP 121/80; PULSE 71; RESP 16; TEMP 97.7; O2SAT 98
[2017-06-28] VITALS (7 sets, daily range): BP systolic 116–134; BP diastolic 78–89; PULSE 60–82; RESP 14–16; TEMP 97.5–98.3; O2SAT 95–98
[2017-06-28] MEDS: ONDANSETRON HCL 4 MG/2 ML VIAL IVP PRN ×2 (00:35→17:19)
[2017-06-28] MEDS: metroNIDAZOLE 500 MG INJ 100 ML IV SCH ×3 (04:16→17:23)
[2017-06-28] MEDS: SODIUM CHLOR 0.9% 1000 ML INJ 1,000 ML IV SCH ×3 (06:15→22:56)
[2017-06-28 06:21] LABS: AUTOMATED NEUTROPHIL # 1.7 TH/MM3 (1.8-7.7); BASOPHIL % 0.5 % (0.0-2.0); EOSINOPHIL % 0.9 % (0.0-4.0); HEMATOCRIT 37.8 % (35.0-46.0); HEMOGLOBIN 12.9 GM/DL (11.6-15.3); LYMPH % 39.3 % (9.0-44.0); LYMPHOCYTE # 1.4 TH/MM3 (1.0-4.8); MEAN CELL VOLUME 90.2 FL (80.0-100.0); MEAN CORPUSCULAR HEMOGLOBIN 30.7 PG (27.0-34.0); MEAN CORPUSCULAR HGB CONC 34.1 % (32.0-36.0); MEAN PLATELET VOLUME 8.4 FL (7.0-11.0); MONO % 11.9 % (0.0-8.0); MONOCYTE # 0.4 TH/MM3 (0-0.9); NEUT % 47.4 % (16.0-70.0); PLATELET COUNT 105 TH/MM3 (150-450); RED BLOOD COUNT 4.19 MIL/MM3 (4.00-5.30); RED CELL DISTRIBUTION WIDTH 13.1 % (11.6-17.2); WHITE BLOOD COUNT 3.5 TH/MM3 (4.0-11.0)
[2017-06-28 06:47] LABS: ALBUMIN 3.1 GM/DL (3.4-5.0); AST (GOT) 13 U/L (15-37); BICARBONATE 24.4 MEQ/L (21.0-32.0); BLOOD UREA NITROGEN 4 MG/DL (7-18); CALCIUM 8.1 MG/DL (8.5-10.1); CHLORIDE 104 MEQ/L (98-107); CREATININE 0.67 MG/DL (0.50-1.00); GLOMERULAR FILTRATION RATE 96 ML/MIN (>89); GLUCOSE,RANDOM 116 MG/DL (74-106); SODIUM (NA) 137 MEQ/L (136-145)
[2017-06-28 06:49] LABS: ALT (GPT) 14 U/L (10-53)
[2017-06-28 06:52] LABS: ALKALINE PHOSPHATASE 48 U/L (45-117); TOTAL BILIRUBIN ADULT 0.2 MG/DL (0.2-1.0); TOTAL PROTEIN 6.3 GM/DL (6.4-8.2)
[2017-06-28] MEDS: CIPROFLOXACIN 400 MG PREMIX 200 ML IV SCH ×2 (07:36→18:41)
[2017-06-28] MEDS: SODIUM CHLORIDE 0.9% FLUSH 10 ML FLUSH IV FLUSH SCH ×2 (08:04→21:00)
[2017-06-28] MEDS: DOCUSATE SODIUM 50 MG/SENNA 8.6 MG TAB PO SCH ×2 (08:05→22:54)
[2017-06-28] MEDS: MORPHINE SULFATE 2 MG/ML INJ IV PUSH PRN ×2 (09:03→16:22)
[2017-06-28] MEDS ORDERED: POTASSIUM CHLORIDE 10 MEQ CONTROLLED RELEASE TAB PO ONE (11:15)
--- NOTE | 2017-06-28 12:25 | HHI.PR ---
Subjective Remarks Patient seen this morning with cooling machine operator. She says that abdominal pain much improving, however still generalized body aches. No diarrhea today. Denies any chest pain or shortness of breath. Denies any nausea or vomiting. Says she does not feel comfortable going home today. Says she is living at a half-way with her son, they have to share a small clot. Objective Vital Signs Date Time Temp Pulse Resp B/P (MAP) Pulse Ox O2 Delivery O2 Flow Rate FiO2 06/28/17 07:38 97.5 61 16 116/78 (91) 95 06/28/17 04:00 97.7 69 16 132/89 (103) 97 06/27/17 23:48 18 06/27/17 22:31 97.7 71 16 121/80 (94) 98 06/27/17 18:20 20 06/27/17 15:44 98.9 87 16 127/77 (94) 97 I/O 06/27/17 06/27/17 06/27/17 06/28/17 06/28/17 06/28/17 07:00 15:00 23:00 07:00 15:00 23:00 Intake Total 100 ml 200 ml Balance 100 ml 200 ml Intake Oral 200 ml IV Total 100 ml # Voids 1 Result Diagram: 06/28/17 0536 06/28/17 0536 Objective Remarks GENERAL: Patient sitting up in bed. Appears comfortable. SKIN: Warm and dry. HEAD: Normocephalic. EYES: No scleral icterus. No injection or drainage. NECK: Supple, trachea midline. No JVD. CARDIOVASCULAR: Regular rate and rhythm without murmurs, gallops, or rubs. RESPIRATORY: Breath sounds equal bilaterally. No accessory muscle use. GASTROINTESTINAL: Abdomen soft, nondistended. Tenderness to palpation left lower quadrant much improved. No rebound or guarding MUSCULOSKELETAL: No cyanosis, or edema. BACK: Nontender without obvious deformity. No CVA tenderness. A/P Assessment and Plan // Sepsis: Temp 100.9, HR 96, WBC 3.8, Source-colitis. s/p IV Abx in ER, will continue w/ IV Abx. = Afebrile now. Improving. Continue antibiotics. //Colitis: CT Abd/Pelvis w/ colitis, images reviewed by me. Continue IV Cipro/ Flagyl, repeat labs in am, IVF for hydration. = Symptoms improving. Still with white count of 3.5 leukopenic. Continue current treatment. //Intractable Abd Pain: secondary to above, analgesics/antiemetics as needed. = Improving. Continue to monitor. //Deaf-Mute: Requesting Tack[employer] cooling machine operator services, however unable until am, declining video sign language as she has difficulty w/ vision. Communicating via handwritten messages. at bedside is blind. Son also at bedside. = Vice President Sales [employer] Marketing assistance appreciated. //Hypokalemia. 3.2. Replace. //DVT Prophylaxis: SCD/Teds. Cholo Leonard MD Jun 28, 2017 12:25
[2017-06-29] VITALS (7 sets, daily range): BP systolic 112–145; BP diastolic 78–94; PULSE 56–97; RESP 14–20; TEMP 96.4–98.5; O2SAT 97–98
[2017-06-29] MEDS: metroNIDAZOLE 500 MG INJ 100 ML IV SCH ×3 (04:08→17:54)
[2017-06-29] MEDS: CIPROFLOXACIN 400 MG PREMIX 200 ML IV SCH ×2 (04:08→16:52)
[2017-06-29 07:41] LABS: AUTOMATED NEUTROPHIL # 1.3 TH/MM3 (1.8-7.7); BASOPHIL % 0.5 % (0.0-2.0); EOSINOPHIL # 0.1 TH/MM3 (0-0.4); EOSINOPHIL % 1.9 % (0.0-4.0); HEMATOCRIT 36.1 % (35.0-46.0); HEMOGLOBIN 12.2 GM/DL (11.6-15.3); LYMPH % 46.3 % (9.0-44.0); LYMPHOCYTE # 1.6 TH/MM3 (1.0-4.8); MEAN CELL VOLUME 89.9 FL (80.0-100.0); MEAN CORPUSCULAR HEMOGLOBIN 30.4 PG (27.0-34.0); MEAN CORPUSCULAR HGB CONC 33.8 % (32.0-36.0); MEAN PLATELET VOLUME 8.8 FL (7.0-11.0); MONO % 11.8 % (0.0-8.0); MONOCYTE # 0.4 TH/MM3 (0-0.9); NEUT % 39.5 % (16.0-70.0); PLATELET COUNT 90 TH/MM3 (150-450); RED BLOOD COUNT 4.01 MIL/MM3 (4.00-5.30); RED CELL DISTRIBUTION WIDTH 13.1 % (11.6-17.2); WHITE BLOOD COUNT 3.4 TH/MM3 (4.0-11.0)
[2017-06-29 07:49] LABS: ALBUMIN 2.9 GM/DL (3.4-5.0); BICARBONATE 25.6 MEQ/L (21.0-32.0); CALCIUM 8.1 MG/DL (8.5-10.1); CREATININE 0.6 MG/DL (0.50-1.00); MAGNESIUM 1.8 MG/DL (1.5-2.5); PHOSPHORUS 2.9 MG/DL (2.5-4.9)
[2017-06-29] MEDS: SODIUM CHLORIDE 0.9% FLUSH 10 ML FLUSH IV FLUSH SCH ×2 (09:00→21:00)
[2017-06-29] MEDS: DOCUSATE SODIUM 50 MG/SENNA 8.6 MG TAB PO SCH ×2 (09:12→21:00)
[2017-06-29] MEDS: SODIUM CHLOR 0.9% 1000 ML INJ 1,000 ML IV SCH (10:24)
--- NOTE | 2017-06-29 11:12 | PD.CONS ---
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 Recently seen and evaluated in the ER for body aches and fevers and was diagnosed with a viral illness and discharged home. Pt reports since discharge that body aches mostly in her back and neck have been getting worse and then on Tuesday she began also having lower abdominal pain. Describes as an aching sensation in her lower abdomen, bilaterally, but worse today on her left side. Reports her BMs have been sticky, she is site impaired and therefore unable to tell me whether they have been black or bloody. Also reporting a decrease in appetite but has attributed this to being sick. Unsure of weight loss because she has not weighed herself but has not noticed any changes in her size. Reports chronic constipation but does not take stool softeners, states eventually resolves on its own. Has never had EGD or colonoscopy. Family history significant for paternal aunt with colitis and a half brother with colon cancer. Denies ETOH. Currently smokes 8 cigarettes a day. Admits to marijuana use. (Vivien Carter) PFSH Past Medical History HTN and IBS Past Surgical History PAST SURGICAL HISTORY: (Vivien Carter) Coded Allergies: penicillin G (Unverified Allergy, Unknown, 06/26/17) Family History PAST FAMILY HISTORY: Reviewed. No h/o DM or CAD Social History PAST SOCIAL HISTORY: Negative for alcohol or drugs. Positive for tobacco. (Vivien Carter) Review of Systems Gastrointestinal: COMPLAINS OF: Abdominal pain, Constipation, Nausea, DENIES: Vomiting, Swelling of Abdomen, Heartburn (Vivien Carter) GI Exam Vitals I&O Vital Signs Date Time Temp Pulse Resp B/P (MAP) Pulse Ox O2 Delivery O2 Flow Rate FiO2 06/29/17 07:31 56 06/29/17 07:21 98.1 63 18 112/78 (89) 98 06/29/17 05:41 98.0 57 14 145/80 (101) 98 06/29/17 00:15 98.5 63 18 127/94 (105) 98 06/28/17 21:18 98.0 63 14 134/86 (102) 98 06/28/17 15:47 74 06/28/17 14:42 98.3 82 16 129/86 (100) 96 06/28/17 11:58 69 I/O 06/28/17 06/28/17 06/28/17 06/29/17 06/29/17 06/29/17 07:00 15:00 23:00 07:00 15:00 23:00 Intake Total 300 ml Output Total 500 ml Balance -200 ml Intake Oral 300 ml Output Urine Total 500 ml Imaging Last Impressions Abdomen/Pelvis CT 06/26/172326 Signed Impressions: Service Date/Time: Tuesday, June 27, 2017 01:53 - CONCLUSION: 1. Wall thickening within the ascending and transverse colon which can be seen with colitis. 2. Small right adrenal nodule likely benign. 3. Several punctate nonobstructing renal calculi. Tor Trevino MD Chest X-Ray 06/26/172323 Signed Impressions: Service Date/Time: Monday, June 26, 2017 23:37 - CONCLUSION: No acute disease. Tor Trevino MD Laboratory Test 06/29/17 06:30 White Blood Count 3.4 TH/MM3 Red Blood Count 4.01 MIL/MM3 Hemoglobin 12.2 GM/DL Hematocrit 36.1 % Mean Corpuscular Volume 89.9 FL Mean Corpuscular Hemoglobin 30.4 PG Mean Corpuscular Hemoglobin Concent 33.8 % Red Cell Distribution Width 13.1 % Platelet Count 90 TH/MM3 Mean Platelet Volume 8.8 FL Neutrophils (%) (Auto) 39.5 % Lymphocytes (%) (Auto) 46.3 % Monocytes (%) (Auto) 11.8 % Eosinophils (%) (Auto) 1.9 % Basophils (%) (Auto) 0.5 % Neutrophils # (Auto) 1.3 TH/MM3 Lymphocytes # (Auto) 1.6 TH/MM3 Monocytes # (Auto) 0.4 TH/MM3 Eosinophils # (Auto) 0.1 TH/MM3 Basophils # (Auto) 0.0 TH/MM3 CBC Comment AUTO DIFF Differential Comment AUTO DIFF CONFIRMED Platelet Estimate LOW Platelet Morphology Comment NORMAL Blood Urea Nitrogen 4 MG/DL Creatinine 0.60 MG/DL Random Glucose 88 MG/DL Albumin 2.9 GM/DL Calcium Level 8.1 MG/DL Phosphorus Level 2.9 MG/DL Magnesium Level 1.8 MG/DL Sodium Level 140 MEQ/L Potassium Level 3.6 MEQ/L Chloride Level 108 MEQ/L Carbon Dioxide Level 25.6 MEQ/L Anion Gap 6 MEQ/L Estimat Glomerular Filtration Rate 109 ML/MIN Date/Time Source Procedure Growth Status 06/27/17 18:47 Nasal Washing Influenza Types A,B Antigen ([place]) - Final NEGATIVE FOR FLU A AND B ANTIGEN.... Complete Physical Examination HEENT: Normocephalic; atraumatic CHEST: Even/unlabored CARDIAC: RRR ABDOMEN: Soft, nondistended, mild lower abdominal TTP; bowel sounds active EXTREMITIES: No clubbing, cyanosis, or edema. SKIN: Normal; no rash; no jaundice. 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 (Vivien Carter) Assessment and Plan Plan Assessment: - Lower abdominal pain, described as cramping with CT findings of wall thickening in the ascending and transverse colon which can be seen with colitis. Reports "sticky" BMs unsure of blood or color because she is site impaired. Has never had EGD or colonoscopy. Family history significant for half brother with colon cancer and paternal aunt with colitis - Constipation, chronic- does not take OTC medication, eventually resolves on its own - Nausea, denies emesis since Tuesday - Squeezing sensation under her ribs- unsure of aggravating or alleviating factors - Decreased appetite, unsure of weight loss, has not weighed herself but denies any noticeable change in size. - Thrombocytopenia- unclear cause, platelets now 90 - ? viral infection - Leukocytopenia- recently diagnosed with febrile illness, seen in this ER three days ago Plan: EGD/Colonoscopy tomorrow Obtain consent Clear liquids today Magnesium Citrate prep NPO after MN Monitor CBC (platelets specifically) Zofran PRN nausea Cipro Flagyl Further recommendations based on findings of above Pt has been seen and examined by myself and Dr. Hooks and this note is written on his behalf (Vivien Carter) Physician Comments Patient seen and examined Agree with above Continue with current supportive care Monitor labs Plan for an EGD and a colonoscopy tomorrow (Thomas Hooks MD) Vivien Crater Jun 29, 2017 11:12 Thomas Hooks MD Jun 29, 2017 21:43
[2017-06-29] MEDS ORDERED: MAGNESIUM CITRATE SOLN 300 ML BTL PO ONE ×2 (16:00→18:00)
--- NOTE | 2017-06-29 20:06 | MB ---
cc: Ale Pierce MD, Ruby Anne E MD Duncan,Cholo Lemon MD DATE: 06/29/2017 REFERRING PHYSICIAN: Dr. Leonard CHIEF COMPLAINT: Dr. Leonard requests a consultation for Mrs. Rodriguez regarding leukopenia and thrombocytopenia. HISTORY OF PRESENT ILLNESS: Mrs. Rodriguez is a 46-year-old woman who is hearing impaired and blind. I spoke to her via an signal inspector. She was well until when she developed upper abdominal pain radiating to the left. She had a constellation of symptoms from headache to eye pain to generalized discomfort. She came into the emergency room, was initially seen by Dr. Shanice Mccoy. She felt nauseous with generalized body aches and headaches. She had an elevated temperature. She was thought to have a viral syndrome and was discharged home. Her laboratory evaluation from 06/23/2017 shows a normal CBC. She has a mild monocytosis but the absolute monocyte count was normal. Chemistry and troponin I were normal. Calcium was slight lower limits of normal. She went home and felt bad and symptoms became progressively worse. She presented back on 06/27/2017 with progressive symptoms. She was writhing in pain in the abdomen and left flank pain. She reports fever. An imaging study was performed, which showed wall thickening within the ascending and transverse colon. There was a right adrenal gland nodule, likely benign, and several punctate nonobstructing renal calculi. She is admitted and given support. Followup CBC shows progressive leukopenia/neutropenia and thrombocytopenia. For this reason, hematology/oncology is consulted. Gastroenterology has seen the patient. They are pending endoscopic procedure tomorrow. She is receiving IV Cipro, Flagyl and hydration. She is starting to feel better. She denies any nausea or vomiting. She had difficulty understanding what white cells and platelets were. The rest of her review of systems is negative. PAST MEDICAL HISTORY: Congenital deafness, poor vision, irritable bowel syndrome, hypertension. PAST SURGICAL HISTORY: . FAMILY HISTORY: A brother had colon cancer in his 30s. SOCIAL HISTORY: Denies any alcohol or illicit drug use. She is , has a who also has a disability. She smokes. She has a 6-year-old son. ALLERGIES: PENICILLIN G. CURRENT MEDICATIONS: Cipro, metronidazole, Mercedes-Colace, Zofran, [place]. PHYSICAL EXAMINATION: VITAL SIGNS: Temperature 97.8, heart rate 97, respiratory rate 16, blood pressure 139/94, saturation 97%. GENERAL: Mrs. Rodriguez is a well-developed, well-nourished woman, who looks older than stated age. HEENT: Pupils are round, reactive to light and accommodation. Oropharynx with poor dentition. NECK: Supple. LUNGS: Clear. CARDIOVASCULAR: Reveals a mild tachycardia. ABDOMEN: Soft with tenderness in the left upper quadrant. No rebound or guarding. Well-healed scar low abdominally. EXTREMITIES: Lower with no edema. NEUROLOGIC: Nonfocal. She is able to communicate via signal inspector with sign language. LABORATORY DATA: Shows a leukopenia, white blood cell count 3.4, mild increase in monocyte percentage, ANC of 1300. Platelet count decreased from her initial evaluation of 213,000, down to 112,000 to 90,000 at the time of the consultation. Platelet count on 06/23/2017 was 213, platelet count on 06/26/2017 was 127, platelet count 06/29/2017 was 90,000. ASSESSMENT AND PLAN: Mrs. Rodriguez is a 46-year-old woman with visual impairment as well as being a deaf mute. She communicates via sign language and an signal inspector. She comes in with abdominal pain. CT scan of the abdomen shows thickened ascending and transverse colon. It appears that she has evidence of colitis. I discussed with Ms. Rodriguez at length via the signal inspector the above findings. Gastroenterology is consulted and will evaluate for underlying colitis. She is worried about colon cancer in light of her brother being diagnosed with colon cancer at age 34. We discussed the laboratory abnormalities. She came in with a normal CBC. Subsequent CBC showed decreasing trend in her white blood cell count and platelet count. I suspect that this is related to her acute illness. I anticipate that it would resolve with resolution of the underlying problem. Diagnostic procedure is still pending. She has had no heparin exposure to alert us to a heparin-induced thrombocytopenia. She is at increased risk for venous thromboembolic event. I anticipate starting low molecular weight heparin prophylaxis after her procedure. She has no overt bleeding. We will check for heparin-induced thrombocytopenia antibody, although the clinical suspicion of this is quite low. I am unable to exclude completely a possibility of drug effect. Liver and spleen are normal. This argues against hypersplenism as the etiology of her cytopenias. Underlying bone marrow disorder is less likely given the normal CBC when she came in on 06/23/2017. Peripheral smear will be reviewed with pathology. MD CHRISTINA Pool//brittny , 06:51 PM , 07:24 PM SONIA
--- NOTE | 2017-06-29 23:28 | HHI.PR ---
Subjective Remarks Patient seen this morning around 9 AM. Reports abdominal pain continues. Denies any chest pain. Denies any shortness of breath. She says she does not feel comfortable going home at this time. Objective Vital Signs Date Time Temp Pulse Resp B/P (MAP) Pulse Ox O2 Delivery O2 Flow Rate FiO2 06/29/17 16:00 97.8 97 16 139/94 (109) 97 06/29/17 12:00 97.9 64 16 141/85 (103) 97 06/29/17 07:31 56 06/29/17 07:21 98.1 63 18 112/78 (89) 98 06/29/17 05:41 98.0 57 14 145/80 (101) 98 06/29/17 00:15 98.5 63 18 127/94 (105) 98 Result Diagram: 06/29/17 0630 06/29/17 0630 Objective Remarks GENERAL: Patient sitting up in bed. Appears comfortable. SKIN: Warm and dry. HEAD: Normocephalic. EYES: No scleral icterus. No injection or drainage. NECK: Supple, trachea midline. No JVD. CARDIOVASCULAR: Regular rate and rhythm without murmurs, gallops, or rubs. RESPIRATORY: Breath sounds equal bilaterally. No accessory muscle use. GASTROINTESTINAL: Abdomen soft, nondistended. Tenderness to palpation left lower quadrant much improved from admission, but still present. No rebound or guarding MUSCULOSKELETAL: No cyanosis, or edema. BACK: Nontender without obvious deformity. No CVA tenderness. A/P Assessment and Plan // Sepsis: Temp 100.9, HR 96, WBC 3.8, Source-colitis. s/p IV Abx in ER, will continue w/ IV Abx. = Afebrile now. Improving. Continue antibiotics. = Improving, however still and leukopenia 3.4. //Pancytopenia. Possibly secondary to sepsis Consult hematology. //Colitis: CT Abd/Pelvis w/ colitis, images reviewed by me. Continue IV Cipro/ Flagyl, repeat labs in am, IVF for hydration. = Symptoms improving. Still with white count of 3.5 leukopenic. Continue current treatment. = Still with abdominal pain. Consult gastroenterology. //Intractable Abd Pain: secondary to above, analgesics/antiemetics as needed. = Continues. Gastroenterology consulted. Continue to monitor. //Deaf-Mute: Requesting Tackle heel seat fitter machine services, however unable until am, declining video sign language as she has difficulty w/ vision. Communicating via handwritten messages. at bedside is blind. Son also at bedside. = Hand Bunch Maker assistance appreciated. //Hypokalemia. 3.6. Improved after placement. Continue to monitor. //DVT Prophylaxis: SCD/Teds. Discharge Planning still with abdominal pain.gastroenterology. patient lives at skilled nursing appreciate case management assistance. Cholo Leonard MD Jun 29, 2017 23:28
[2017-06-30] MEDS: metroNIDAZOLE 500 MG INJ 100 ML IV SCH ×2 (02:37→09:51)
[2017-06-30] MEDS: CIPROFLOXACIN 400 MG PREMIX 200 ML IV SCH (06:46)
[2017-06-30] MEDS: SODIUM CHLOR 0.9% 1000 ML INJ 1,000 ML IV SCH (06:50)
[2017-06-30 08:00] VITALS: BP 145/95; PULSE 62; RESP 16; TEMP 98; O2SAT 97
[2017-06-30 08:38] LABS: AUTOMATED NEUTROPHIL # 1.9 TH/MM3 (1.8-7.7); BASOPHIL % 0.8 % (0.0-2.0); EOSINOPHIL # 0.1 TH/MM3 (0-0.4); EOSINOPHIL % 1.6 % (0.0-4.0); HEMATOCRIT 35.6 % (35.0-46.0); HEMOGLOBIN 11.9 GM/DL (11.6-15.3); LYMPH % 33.1 % (9.0-44.0); LYMPHOCYTE # 1.2 TH/MM3 (1.0-4.8); MEAN CELL VOLUME 90.6 FL (80.0-100.0); MEAN CORPUSCULAR HEMOGLOBIN 30.4 PG (27.0-34.0); MEAN CORPUSCULAR HGB CONC 33.6 % (32.0-36.0); MONO % 9.7 % (0.0-8.0); MONOCYTE # 0.3 TH/MM3 (0-0.9); NEUT % 54.8 % (16.0-70.0); PLATELET COUNT 101 TH/MM3 (150-450); RED BLOOD COUNT 3.93 MIL/MM3 (4.00-5.30); RED CELL DISTRIBUTION WIDTH 12.7 % (11.6-17.2); WHITE BLOOD COUNT 3.5 TH/MM3 (4.0-11.0)
[2017-06-30 08:39] LABS: PROTHROMBIN TIME - PATIENT 10.4 SEC (9.8-11.6)
[2017-06-30 08:59] LABS: ALBUMIN 2.9 GM/DL (3.4-5.0); AST (GOT) 25 U/L (15-37); BICARBONATE 22.6 MEQ/L (21.0-32.0); BLOOD UREA NITROGEN 4 MG/DL (7-18); CALCIUM 7.7 MG/DL (8.5-10.1); CHLORIDE 112 MEQ/L (98-107); CREATININE 0.61 MG/DL (0.50-1.00); GLOMERULAR FILTRATION RATE 107 ML/MIN (>89); GLUCOSE,RANDOM 107 MG/DL (74-106); SODIUM (NA) 141 MEQ/L (136-145)
[2017-06-30] MEDS: DOCUSATE SODIUM 50 MG/SENNA 8.6 MG TAB PO SCH (09:00)
[2017-06-30 09:03] LABS: ALKALINE PHOSPHATASE 49 U/L (45-117); ALT (GPT) 21 U/L (10-53); TOTAL BILIRUBIN ADULT 0.3 MG/DL (0.2-1.0)
[2017-06-30] MEDS: SODIUM CHLORIDE 0.9% FLUSH 10 ML FLUSH IV FLUSH SCH (09:51)
--- NOTE | 2017-06-30 13:52 | PD.PROCEDR ---
GI Procedure PROCEDURE PERFORMED EGD with biopsy followed by a colonoscopy with snare polypectomy INDICATION FOR PROCEDURE Abdominal pain, constipation, nausea, abnormal CT findings PROCEDURE: The procedure, risks and benefits were discussed with Ms. Rodriguez and informed consent was obtained. Anesthesia sedated her with Diprivan. She was placed in the left lateral decubitus position. EGD: The Pentax videoscope was introduced through the oropharynx and advanced to the second portion of the duodenum under direct visualization. Retroflexion was performed in the stomach. FINDINGS: The esophagus there was a distal esophageal consistent with grade A reflux esophagitis this was biopsied The stomach there was some patchy erythema in the antrum but no ulcerations no erosions no blood or bleeding the rest of the stomach was unremarkable antral biopsies were taken for further evaluation The duodenum there was some patchy erythema in the duodenal bulb and sweep but no ulcerations or erosions no blood or bleeding Colonoscopy: The Pentax videoscope was introduced through the rectum and advanced to cecum where the ileocecal valve and appendiceal orifice were identified. Retroflexion was performed in the rectum. Colonic prep was good FINDINGS: Colonic withdrawal time greater than 6 minutes. As the scope was slowly withdrawn colonic mucosa was carefully inspected the patient was noted to have a large sessile polyp in the proximal ascending colon this was removed using piecemeal resection with a hot snare and the edges were then cauterized this was her only polyp in the colon the patient was noted to have few scattered diverticuli throughout the colon colonic examination was otherwise unremarkable shows retroflexion and rectal examination ESTIMATED BLOOD LOSS: None SPECIMENS REMOVED: Esophageal, gastric, colon biopsies taken COMPLICATIONS: None IMPRESSION: Reflux esophagitis grade A Mild antral gastritis Mild duodenitis Colon polyp Diverticulosis PLAN: Await biopsies High-fiber diet Protonix 40 mg daily Colonoscopy in 1 year Continue supportive care Thomas Hooks MD Jun 30, 2017 13:52
--- NOTE | 2017-06-30 15:39 | PD.ONC.PN ---
Subjective Subjective Remarks Afebrile overnight. Patient resting in bed in nad. 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 She is just back from EGD procedure this AM. No complaints. Objective Data Date Time Temp Pulse Resp B/P (MAP) Pulse Ox O2 Delivery O2 Flow Rate FiO2 06/30/17 13:20 97.0 57 18 128/88 (101) 96 06/30/17 13:08 97.0 60 18 134/81 (98) 96 06/30/17 08:00 98.0 62 16 145/95 (112) 97 06/29/17 20:00 96.4 60 20 135/82 (99) 98 06/29/17 16:00 97.8 97 16 139/94 (109) 97 06/30/17 06/30/17 06/30/17 07:00 15:00 23:00 Intake Total 300 ml Balance 300 ml Result Diagram: 06/30/17 0740 06/30/17 0740 Laboratory Results Laboratory Tests Test 06/30/17 07:40 White Blood Count 3.5 TH/MM3 Red Blood Count 3.93 MIL/MM3 Hemoglobin 11.9 GM/DL Hematocrit 35.6 % Mean Corpuscular Volume 90.6 FL Mean Corpuscular Hemoglobin 30.4 PG Mean Corpuscular Hemoglobin Concent 33.6 % Red Cell Distribution Width 12.7 % Platelet Count 101 TH/MM3 Mean Platelet Volume 9.0 FL Neutrophils (%) (Auto) 54.8 % Lymphocytes (%) (Auto) 33.1 % Monocytes (%) (Auto) 9.7 % Eosinophils (%) (Auto) 1.6 % Basophils (%) (Auto) 0.8 % Neutrophils # (Auto) 1.9 TH/MM3 Lymphocytes # (Auto) 1.2 TH/MM3 Monocytes # (Auto) 0.3 TH/MM3 Eosinophils # (Auto) 0.1 TH/MM3 Basophils # (Auto) 0.0 TH/MM3 CBC Comment DIFF FINAL Differential Comment Blood Smear Pathologist Review Prothrombin Time 10.4 SEC Prothromb Time International Ratio 1.0 RATIO Activated Partial Thromboplast Time 30.5 SEC Fibrinogen 314 mg/dL Mix DRVV Patient/Normal 1:1 Blood Urea Nitrogen 4 MG/DL Creatinine 0.61 MG/DL Random Glucose 107 MG/DL Total Protein 6.0 GM/DL Albumin 2.9 GM/DL Calcium Level 7.7 MG/DL Alkaline Phosphatase 49 U/L Aspartate Amino Transf (AST/SGOT) 25 U/L Alanine Aminotransferase (ALT/SGPT) 21 U/L Lactate Dehydrogenase 145 U/L Total Bilirubin 0.3 MG/DL Sodium Level 141 MEQ/L Potassium Level 3.5 MEQ/L Chloride Level 112 MEQ/L Carbon Dioxide Level 22.6 MEQ/L Anion Gap 6 MEQ/L Estimat Glomerular Filtration Rate 107 ML/MIN Culture Results Microbiology Date/Time Source Procedure Growth Status 06/27/17 18:47 Nasal Washing Influenza Types A,B Antigen ([place]) - Final NEGATIVE FOR FLU A AND B ANTIGEN.... Complete Administered Medications Medications (Trade) Dose Ordered Sig/Joe Route PRN Reason Start Time Stop Time Status Last Admin Dose Admin Metronidazole 100 ml @ 100 mls/hr Q8H IV 06/27/17 10:00 06/30/17 09:51 Ciprofloxacin/ Dextrose 200 ml @ 200 mls/hr Q12H IV 06/27/17 18:00 06/30/17 06:46 Sodium Chloride 1,000 ml @ 100 mls/hr Q10H IV 06/27/17 04:39 06/30/17 06:50 Sodium Chloride (NS Flush) 2 ml BID IV FLUSH 06/27/17 09:00 06/30/17 09:51 Ondansetron HCl (Zofran Inj) 4 mg Q6H PRN IVP NAUSEA OR VOMITING 06/27/17 04:45 06/28/17 17:19 Acetaminophen (Tylenol) 650 mg Q6H PRN PO FEVER/PAIN SCALE 1 TO 2 06/27/17 04:45 06/29/17 16:53 Acetaminophen/ Hydrocodone Bitart ([place] 5-325 Mg) 1 tab Q4H PRN PO PAIN SCALE 3 TO 5 06/27/17 04:45 06/27/17 22:46 Morphine Sulfate (Morphine Inj) 2 mg Q3H PRN IV PUSH Pain 6-10 06/27/17 04:45 06/28/17 16:22 Senna/Docusate Sodium (Mercedes-Colace) 1 tab BID PO 06/27/17 09:00 06/29/17 09:12 Objective Remarks GENERAL: Pleasant female, sitting up in bed in nad. SKIN: Warm and dry. HEAD: Normocephalic. NECK: Supple, trachea midline. CARDIOVASCULAR: Regular rate and rhythm RESPIRATORY: Breath sounds equal bilaterally. No accessory muscle use. GASTROINTESTINAL: Abdomen soft, non-tender, nondistended. EXTREMITIES: No cyanosis NEUROLOGICAL: awake. moving extremities. Assessment/Plan Assessment 46y/o female admitted with abdominal pain, hematology consulted for leukopenia and thrombocytopenia. h/o Congenital deafness, poor vision, irritable bowel syndrome, hypertension. Plan 1. thrombocytopenia + leukopenia: platelets improving from 90-->101, WBC 3.4--> 3.5. --expect counts to continue to improve with resolution of acute illness. --pathology peripheral smear review pending. 2. Abdominal pain: GI following, s/p EGD today which showed Reflux esophagitis grade A, Mild antral gastritis, Mild duodenitis, Colon polyp, Diverticulosis. Vandana Martin Jun 30, 2017 15:39
[2017-06-30 16:00] VITALS: BP 138/83; PULSE 64; RESP 16; TEMP 98.6; O2SAT 95
[2017-06-30 16:29] LABS: HEPARIN INDUCED PLATELET AB NEGATIVE (NEGATIVE)
--- NOTE | 2017-06-30 16:34 | HHI.DCPOC ---
Discharge Care Plan Diagnosis: (1) Gastritis (2) Deaf-mutism (3) Colitis Goals to Promote Your Health * To prevent worsening of your condition and complications * To maintain your health at the optimal level Directions to Meet Your Goals Take your medications as prescribed Follow your dietary instruction Follow activity as directed Keep your appointments as scheduled Take your immunizations and boosters as scheduled If your symptoms worsen call your PCP, if no PCP go to Urgent Care Center or Emergency Room Smoking is Dangerous to Your Health. Avoid second hand smoke Call the 24-hour hour crisis hotline for domestic abuse at Stephen Bowers MD Jun 30, 2017 16:34
[2017-06-30] MEDS ORDERED: PANT40TA3 PO (16:36)
[2017-06-30] MEDS ORDERED: GAVISUS2 PO (16:45)
[2017-06-30] MEDS ORDERED: METR1TAB76 PO (16:50)
[2017-06-30] MEDS ORDERED: CIPR500T2 PO (16:50)
--- NOTE | 2017-06-30 16:51 | HHI.DS ---
Discharge Summary Admission Date Jun 27, 2017 at 04:52 Discharge Date: Jun 30, 2017 Admitting Diagnosis intractable abdominal pain, colitis, (1) Colitis ICD Code: K52.9 - Noninfective gastroenteritis and colitis, unspecified (2) Intractable pain ICD Code: R52 - Pain, unspecified (3) Deaf-mutism ICD Code: H91.3 - Deaf nonspeaking, not elsewhere classified Procedures EGD and colonoscopy Brief History - From Admission This is a 46-year-old Deaf-Mute female with a PMH of HTN and IBS who presented to the ER with complaints of abdominal pain in addition to fever. Accompanied by and son, is blind. 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 History obtained from patient in writing. Recent ER presentation 06/23/17 for viral syndrome. Returns now w/ abdominal pain and fever. Temp 100.9 at home. Abdominal pain diffuse, intermittent, cramping, 8/ 10. No nausea, vomiting or diarrhea. On arrival, BP 148/93, HR 96, O2 sat 97% on RA, Temp 100.9. WBC 3.8. Platelets 127. Chemistry essentially unremarkable. UA negative. CT Abdomen/Pelvis with wall thickening of ascending and transverse colon, likely colitis. CXR with no acute findings. s/ p Levaquin/Flagyl in the ER. CBC/BMP: 06/30/17 0740 06/30/17 0740 Significant Findings Laboratory Tests Test 06/28/17 05:36 06/29/17 06:30 06/30/17 07:40 White Blood Count 3.5 TH/MM3 (4.0-11.0) 3.4 TH/MM3 (4.0-11.0) 3.5 TH/MM3 (4.0-11.0) Platelet Count 105 TH/MM3 (150-450) 90 TH/MM3 (150-450) 101 TH/MM3 (150-450) Monocytes (%) (Auto) 11.9 % (0.0-8.0) 11.8 % (0.0-8.0) 9.7 % (0.0-8.0) Neutrophils # (Auto) 1.7 TH/MM3 (1.8-7.7) 1.3 TH/MM3 (1.8-7.7) Blood Urea Nitrogen 4 MG/DL (7-18) 4 MG/DL (7-18) 4 MG/DL (7-18) Random Glucose 116 MG/DL (74-106) 107 MG/DL (74-106) Total Protein 6.3 GM/DL (6.4-8.2) 6.0 GM/DL (6.4-8.2) Albumin 3.1 GM/DL (3.4-5.0) 2.9 GM/DL (3.4-5.0) 2.9 GM/DL (3.4-5.0) Calcium Level 8.1 MG/DL (8.5-10.1) 8.1 MG/DL (8.5-10.1) 7.7 MG/DL (8.5-10.1) Aspartate Amino Transf (AST/SGOT) 13 U/L (15-37) Potassium Level 3.2 MEQ/L (3.5-5.1) Lymphocytes (%) (Auto) 46.3 % (9.0-44.0) Platelet Estimate LOW (NORMAL) Chloride Level 108 MEQ/L (98-107) 112 MEQ/L (98-107) Red Blood Count 3.93 MIL/MM3 (4.00-5.30) Activated Partial Thromboplast Time 30.5 SEC (24.3-30.1) Imaging Last Impressions Abdomen/Pelvis CT 06/26/172326 Signed Impressions: Service Date/Time: Tuesday, June 27, 2017 01:53 - CONCLUSION: 1. Wall thickening within the ascending and transverse colon which can be seen with colitis. 2. Small right adrenal nodule likely benign. 3. Several punctate nonobstructing renal calculi. Tor Trevino MD Chest X-Ray 06/26/170 Signed Impressions: Service Date/Time: Monday, June 26, 2017 23:37 - CONCLUSION: No acute disease. Tor Trevino MD Hospital Course Patient was admitted, initial CT scan was suggestive of colitis, this the patient was started on IV antibiotics. GI was consulted, ultimately perform an EGD and colonoscopy which showed some esophagitis and mild gastritis and mild duodenitis. Colonoscopy is unremarkable. Patient was tolerating p.o. intake well with no significant recurrence of her abdominal symptoms. Her fever had resolved. Patient has met maximal benefit from hospitalization is clinically stable for discharge. She was counseled to avoid NSAIDs. Pt Condition on Discharge: Stable Discharge Disposition: Discharge Home Discharge Time: > 30 minutes Discharge Instructions DIET: Follow Instructions for: High Fiber Diet Activities you can perform: Weight Bearing as Werner Other Activity Instructions: per previous restrictions regarding heavy machinery and driving per PCP given her deaf-mute condition Follow up Referrals: Gastroenterology - 2 Weeks with Thomas Hooks MD PCP Follow-up - 1 Week New Medications: Aluminum Hydroxide-Mag Carb Liq (Gaviscon Extra Strength R Liq) 508-475 Mg/10 Ml Susp 10-20 ML PO QID PRN for HEARTBURN, #200 ML 0 Refills Maximum 80 mL/24 hrs. Ciprofloxacin (Ciprofloxacin) 500 Mg Tab 500 MG PO BID for Infection, #16 TAB 0 Refills Metronidazole (Metronidazole) 500 Mg Tab 500 MG PO TID for Infection, #24 TAB 0 Refills Pantoprazole (Pantoprazole) 40 Mg Tab 40 MG PO DAILY for Reflux, #30 TAB 0 Refills Continued Medications: Betamethasone-Clotrimazole Topical (Lotrisone Topical) 1-0.05% Cream 1 APPLIC TOPICAL BID for Fungal infection, #15 GM 0 Refills Erythromycin (Acne Aid) Topical (Erythromycin Topical) 2 % Gel 1 APPLIC TOPICAL BID for Rash, #1 TUBE 0 Refills Famotidine (Pepcid 20 Mg Tab) 20 Mg Tab 20 MG PO BID, #30 TAB Hydrochlorothiazide (Hctz) 25 Mg Tab 25 MG PO DAILY Hydrocodone-Chlorpheniramine 12 HR Liq (Tussionex Pennkinetic Ext 12 HR Liq) 10- 8 Mg/5 Ml Susp 5 ML PO Q12H PRN for COUGH AND/OR COLD SYMPTOMS, #60 ML 0 Refills Ondansetron (Zofran ODT) 4 Mg Tab 4 MG SL Q6H PRN for NAUSEA, #6 TAB FOR NAUSEA/VOMITING Discontinued Medications: Doxycycline Hyclate (Doxycycline Hyclate) 100 Mg Cap 100 MG PO BID for Infection, #20 CAP 0 Refills Naproxen (Naprosyn-Ec) 500 Mg Tab 500 MG PO BID, #14 TAB Stephen Bowers MD Jun 30, 2017 16:51
[2017-07-02 19:52] LABS: BETA2 GLYCOPROTEIN I AB IGA LESS THAN 9.0 SAU (< OR = 20); BETA2 GLYCOPROTEIN I AB IGG LESS THAN 9.0 SGU (< OR = 20); BETA2 GLYCOPROTEIN I AB IGM LESS THAN 9.0 SMU (< OR = 20)
[2017-07-03 03:51] LABS: DRVVT 1:1 MIX ND (CORRECTED); DRVVT MIX CONFIRM ND (()); HEXAGONAL PHASE CONFIRM NEGATIVE (NEGATIVE)
[2017-07-04 07:52] LABS: CARDIOLIPIN AB IGA LESS THAN 11.0 APL (0-11)
== END 2017-06-30 19:30 | disposition home or self-care (01) | DRG 872 ==
LOC: NEPE 23:19 → NEDA 06-27 04:52 → NEPFCDU 06-27 08:09 → HOCB 06-29 11:38
PROVIDERS: ADMIT Hospitalist; ATTEND Hospitalist
PROC: 0DB78ZX Excision of Stomach, Pylorus, Via Natural or Artificial Opening Endoscopic, Diagnostic (ICD-10-PCS; 2017-06-30)
PROC: 0DBK8ZX Excision of Ascending Colon, Via Natural or Artificial Opening Endoscopic, Diagnostic (ICD-10-PCS; principal; 2017-06-30 12:15)
PROC: 0DB38ZX Excision of Lower Esophagus, Via Natural or Artificial Opening Endoscopic, Diagnostic (ICD-10-PCS; 2017-06-30 12:15)
DX: A41.9 Sepsis, unspecified organism (principal); D61.818 Other pancytopenia; E27.8 Other specified disorders of adrenal gland; I10 Essential (primary) hypertension; K52.9 Noninfective gastroenteritis and colitis, unspecified; K59.09 Other constipation; N20.0 Calculus of kidney; K21.0 Gastro-esophageal reflux disease with esophagitis; D12.2 Benign neoplasm of ascending colon; K29.80 Duodenitis without bleeding; K29.60 Other gastritis without bleeding; K57.30 Diverticulosis of large intestine without perforation or abscess without bleeding; E87.6 Hypokalemia; H91.3 Deaf nonspeaking, not elsewhere classified; H54.8 Legal blindness, as defined in USA; F17.210 Nicotine dependence, cigarettes, uncomplicated; F12.90 Cannabis use, unspecified, uncomplicated; Z80.0 Family history of malignant neoplasm of digestive organs; Z88.0 Allergy status to penicillin
CPT/HCPCS: 71045; 74177; 80053; 80069; 81001; 83615; 83735; 84703; 85025; 85384; 85597; 85598; 85610; 85613; 85730; 86022; 86146; 86147; 87804; 88305; 88312; 96365; 96367; J0744; J1956; J2270; J2405; J7030; Q9963; Q9967

== ENCOUNTER 2017-07-15 15:42 | Emergency (ER) | payer MEDICARE, OTHER ==
[~2017-07-15] VITALS: Ht 162.6 cm; Wt 75.0 kg
[~2017-07-15 15:42] MED LIST changes: +CIPR500T2 PO; -DOXY100C PO; -EC-N500T7 PO; +GAVISUS2 PO; +METR1TAB76 PO; +PANT40TA3 PO
[2017-07-15 16:12] VITALS: BP 164/96; PULSE 79; RESP 18; TEMP 99; O2SAT 98
--- NOTE | 2017-07-15 16:30 | PD ---
HPI Chief Complaint: Lump, Cyst, Hernia Time Seen by Provider: 16:30 Travel History International Travel<30 days: No Contact w/Intl Traveler<30days: No Traveled to known affect area: No History of Present Illness HPI 46-year-old female who is deaf, partially blind and mute, presents to the emergency department with tender lump under the left axilla for the past week. Patient has very difficult communication issues due to her disabilities. Finding of appropriate assistant professor of history is initiated. Patient is unable to communicate with use of the computer assistant professor of history due to her visual impairment. PFSH Past Medical History Arthritis: Yes (r/t fractured left ankle ) Cardiovascular Problems: No Diminished Hearing: Yes (Deaf) Gastrointestinal Disorders: Yes (IBS) Genitourinary: Yes Hypertension: Yes Kidney Stones: Yes (x3) Musculoskeletal: Yes Neurologic: No Reproductive: No Respiratory: No : 2 Para: 2 Miscarriage: 0 : 0 Past Surgical History Section: Yes (X1, One vaginal .) Gynecologic Surgery: Yes ( 2010) Social History Alcohol Use: No Tobacco Use: Yes Substance Use: Yes (marajuana not often, last time 2 weeks ago) Allergies-Medications (Allergen,Severity, Reaction): Coded Allergies: penicillin G (Unverified Allergy, Unknown, 07/15/17) Reported Meds & Prescriptions Reported Meds & Active Scripts Active Ciprofloxacin (Ciprofloxacin HCl) 500 Mg Tab 500 Mg PO BID Metronidazole 500 Mg Tab 500 Mg PO TID Gaviscon Extra Strength R Liq (Aluminum Hydroxide-Mag Carb Liq) 508-475 Mg/10 Ml Susp 10-20 Ml PO QID PRN Maximum 80 mL/24 hrs. Pantoprazole (Pantoprazole Sodium) 40 Mg Tab 40 Mg PO DAILY Tussionex Pennkinetic Ext 12 HR Liq (Hydrocodone-Chlorpheniramine 12 HR Liq) 10- 8 Mg/5 Ml Susp 5 Ml PO Q12H PRN Erythromycin Topical (Erythromycin (Acne Aid) Topical) 2 % Gel 1 Applic TOPICAL BID Lotrisone Topical (Betamethasone/Clotrimazole) 1-0.05% Cream 1 Applic TOPICAL BID Pepcid 20 Mg Tab (Famotidine) 20 Mg Tab 20 Mg PO BID Zofran ODT (Ondansetron HCl) 4 Mg Tab 4 Mg SL Q6H PRN FOR NAUSEA/VOMITING Reported Hctz (Hydrochlorothiazide) 25 Mg Tab 25 Mg PO DAILY Review of Systems ROS Limitations: Language Barrier, Hearing Impaired, Speech Impaired Except as stated in HPI: all other systems reviewed are Neg General / Constitutional: No: Fever Eyes: Positive: Blindness, No: Visual changes HENT: No: Headaches Cardiovascular: No: Chest Pain or Discomfort Respiratory: No: Shortness of Breath Gastrointestinal: No: Abdominal Pain Genitourinary: No: Dysuria Musculoskeletal: No: Pain Skin: Positive Lesions, No Rash Neurologic: No: Weakness Psychiatric: No: Depression Endocrine: No: Polydipsia Hematologic/Lymphatic: No: Easy Bruising Physical Exam Exam Limitations: Poor Historian Narrative GENERAL: Patient is in mild distress. SKIN: Warm and dry. Normal color. Normal turgor. Patient has obvious abscess below the left axilla with localized erythema, induration, tenderness, and pointing. There is no streaking noted. There is no spontaneous drainage. HEAD: Atraumatic. Normocephalic. EYES: Pupils equal and round. No scleral icterus. No injection or drainage. ENT: No nasal bleeding or discharge. Mucous membranes pink and moist. Pharynx is clear NECK: Trachea midline. Supple. CARDIOVASCULAR: Regular rate and rhythm. RESPIRATORY: No accessory muscle use. Clear to auscultation. Breath sounds equal bilaterally. MUSCULOSKELETAL: Extremities without clubbing, cyanosis, or edema. No obvious deformities. NEUROLOGICAL: Awake and alert. No obvious cranial nerve deficits. Motor grossly within normal limits. Five out of 5 muscle strength in the arms and legs. PSYCHIATRIC: Appropriate mood and affect; insight and judgment normal. Data Data Last Documented VS Vital Signs Date Time Temp Pulse Resp B/P (MAP) Pulse Ox O2 Delivery O2 Flow Rate FiO2 07/15/17 16:12 99.0 79 18 164/96 (118) 98 MDM Medical Decision Making Medical Screen Exam Complete: Yes Emergency Medical Condition: Yes Differential Diagnosis Cellulitis. Abscess. MRSA. Narrative Course Due to the patient's visual, hearing, and speech disabilities I cannot get authorization to do I&D. Nursing staff are working on getting proper solicitor patent. 1900 hrs., solicitor patent arrives. I&D of abscess will be performed by Chivo Jin PA-C as it is change of shift. Wound culture is ordered. Patient was sent home on Bactrim DS twice daily 7 days. Patient also given ibuprofen 600 mg 4 times daily as needed pain. Patient is to return in 2 days for packing removal and wound check. Diagnosis Primary Impression: Abscess Patient Instructions: Abscess Incision and Drainage (DC), General Instructions Additional Instructions: Wound culture is ordered. Patient was sent home on Bactrim DS twice daily 7 days. Patient also given ibuprofen 600 mg 4 times daily as needed pain. Patient is to return in 2 days for packing removal and wound check. Med/Other Pt SpecificInfo: Prescription(s) given Disposition: 01 DISCHARGE HOME Condition: Stable Deshaun Arroyo Jul 15, 2017 16:30
[2017-07-15] MEDS ORDERED: BACT800T5 PO (19:04)
[2017-07-15] MEDS ORDERED: IBUP-232 PO (19:04)
[2017-07-15] MEDS ORDERED: LIDOCAINE 1%/EPINEPHrine 1:100,000 SOLN 20 ML VIAL INFIL ONE (19:15)
--- NOTE | 2017-07-15 19:32 | PD ---
Physical Exam Date Seen by Provider: Jul 15, 2017 Time Seen by Provider: 19:30 Data Data Last Documented VS Vital Signs Date Time Temp Pulse Resp B/P (MAP) Pulse Ox O2 Delivery O2 Flow Rate FiO2 07/15/17 16:12 99.0 79 18 164/96 (118) 98 Orders Orders Lidocai-Epi 1%-1:100,000 Inj (Xylocaine- (07/15/17 19:15) Wound Culture And Gram Stain (07/15/17 19:03) Ed Discharge Order (07/15/17 19:05) MDM Medical Record Reviewed: Yes Supervised Visit with MARY: No Differential Diagnosis MDM: High Differential diagnoses: Abscess, folliculitis, cellulitis, lymphangitis, abrasion, contact dermatitis Narrative Course An incision and drainage has been performed Procedures Procedure Narrative I&D abscess: After the risks and benefits were discussed the following procedure was performed. The skin is prepped and draped in the usual sterile fashion using Betadine. The abscess is anesthetized with 1% lidocaine with epinephrine 10. After adequate anesthesia, an [-] blade scalpel is used to make a 1.5 centimeter central incision. Perulant material is expressed Loculations are broken up using curved Sejal forceps. The wound is cleansed deeply using dilute Betadine and peroxide on Q-tips. The wound is packed open using iodoform gauze. A clean dressing is applied. The patient tolerated the procedure well. There was no complications. Follow-up instructions were given to the patient. Diagnosis Primary Impression: Abscess Patient Instructions: General Instructions, Abscess Incision and Drainage (DC) Departure Forms: Tests/Procedures Additional Instruction: Daily wound care with soap, water. Remove the packing in 2 days. Patient was sent home on Bactrim DS twice daily 7 days. Patient also given ibuprofen 600 mg 4 times daily as needed pain. Follow-up with your medical doctor in the next 2-3 days for recheck. Return to the ER if any problems. Med/Other Pt SpecificInfo: Prescription(s) given Scripts Ibuprofen (Ibuprofen) 600 Mg Tab 600 MG PO Q6H Y for Pain/Inflammation, #40 TAB 0 Refills Prov: Sumit Watson MD 07/15/17 Sulfamethoxazole-Trimethoprim (Bactrim DS) 800-160 Mg Tab 1 TAB PO BID for Infection, #14 TAB 0 Refills Prov: Sumit Watson MD 07/15/17 Disposition: 01 DISCHARGE HOME Condition: Stable Micah Kirk Jul 15, 2017 19:32
[2017-07-15] MEDS ORDERED: SULFAMETHOXAZOLE-TRIMETHOPRIM DS 800-160 MG TAB PO ONE (20:15)
[2017-07-15] MEDS ORDERED: IBUPROFEN 600 MG TAB PO ONE (20:15)
== END 2017-07-15 20:30 | disposition home or self-care (01) ==
LOC: NEPD 15:42
DX: L02.412 Cutaneous abscess of left axilla (principal); H91.90 Unspecified hearing loss, unspecified ear; K58.9 Irritable bowel syndrome, unspecified; I10 Essential (primary) hypertension; M19.172 Post-traumatic osteoarthritis, left ankle and foot; Z87.442 Personal history of urinary calculi; Z72.0 Tobacco use; Z88.0 Allergy status to penicillin
CPT/HCPCS: 10060

== ENCOUNTER 2017-12-17 13:31 | Inpatient (IN) ==
[2017-12-17] MEDS ORDERED: Morphine Inj 4 MG/ML Vial IV.PUSH ONE ×3 (16:09→19:52)
--- NOTE | 2017-12-17 16:23 | ED ---
HPI General Chief complaint: Skin/Abscess/Foreign Body Stated complaint: skin Time Seen by Provider: 12/17/17 14:33 History of Present Illness HPI narrative: 47-year-old female who is deaf and legally blind presents to the emergency department for evaluation of painful abscess to posterior neck for 5 days. The patient is accompanied by her who is deaf and signs/lip reads and her son who does use sign language also. The patient reports she cannot use the [facility] prompt certified court/medical interpreter. Unfortunately a specialized certified court/medical interpreter is not currently available. The patient is agreeable to have her and her young son interpret for her. The patient states that she has had a painful red lump to her posterior neck for 5 days. This is been getting larger and more painful. States that her entire neck is now hurting. States that she is also having a significant headache with the pain. Denies any fever, chills, nausea, vomiting, discharge or drainage from the site. She has a history of abscesses previously to her axilla and groin. Denies , last menstrual period 2 days ago. No other complaints or concerns. Related Data Home Medications Medication Instructions Recorded Confirmed No Known Home Medications 12/17/17 12/17/17 Allergies Allergy/AdvReac Type Severity Reaction Status Date / Time penicillin G Allergy Unknown Unverified 07/15/17 16:53 Review of Systems ROS: all other systems reviewed are negative [facility] Social History Social History Substance History: Unable to Obtain Smoking Status: Unknown if ever smoked How Often Do You Have a Drink Containing Alcohol: Unable to Obtain Recent Travel in [facility] within the Last 8 Weeks: No Recent Out of Country Travel within the Last 8 Weeks: No Exam Narrative Exam Narrative: GENERAL: Well-nourished and well-developed pleasant patient in no acute distress who is nontoxic appearing. SKIN: Warm and dry. HEAD: Normocephalic and atraumatic. EYES: No injection, drainage, or hyphema noted. PERRLA. EOMI. ENT: No nasal drainage noted. Oropharynx is clear. NECK: Supple and the trachea is midline. Large 9 cm x 5 cm raised erythematous mass to posterior neck overlying cervical spine. There is a central 1 cm area of crusting, no draining. There is surrounding erythema and swelling of the tissue of the posterior neck. Significant tenderness to palpation and induration. CARDIOVASCULAR: Regular rate and rhythm. RESPIRATORY: Breath sounds are equal bilaterally with no accessory muscle use, wheezing, rhonchi, or crackles. GASTROINTESTINAL: Abdomen is soft, non-tender, and nondistended. No hepatosplenomegaly. MUSCULOSKELETAL: No obvious deformities, swelling, cyanosis, or ecchymosis is present throughout the upper and lower extremities. Patient has full range of motion without any signs of neurovascular compromise. Distal pulses are 2+ throughout. NEUROLOGICAL: Awake, alert, and oriented. Normal speech and gait. Cranial nerves are grossly intact. Course Initial Documented Vital Signs Temperature 99.0 F 12/17/17 14:01 Pulse Rate 87 12/17/17 14:01 Respiratory Rate 16 12/17/17 14:01 Blood Pressure 161/91 H 12/17/17 14:01 Pulse Oximetry 97 12/17/17 14:01 Last Documented Vital Signs Temperature 99.0 F 12/17/17 14:01 Pulse Rate 81 12/17/17 18:06 Respiratory Rate 17 12/17/17 18:06 Blood Pressure 154/82 H 12/17/17 18:06 Pulse Oximetry 98 12/17/17 18:06 Medical Decision Making MARY Attestation MARY supervised visit: Yes Attestation: I, Dr. Watson, have reviewed the advance practice practitioner's documentation and am in agreement, met with the patient face to face, made the diagnosis, and the medical decision making was done by me. *My assessment and Findings: Patient has a very large epidermoid cyst on the back of her neck that has become infected and inflamed. There is a lot of erythema and induration. I do not see fluctuance. It may require I&D but not clear at this moment. CT soft tissue IV contrast CT ordered to determine that. She will benefit from IV vancomycin regardless. Planning on hospitalizing. MDM Narrative Medical decision making narrative: 47-year-old female presents to the ED for evaluation of neck abscess with surrounding cellulitis. Patient is afebrile, vital signs are stable. This is an extensive abscess in a precarious location. I discussed the case with my attending physician and we agree that I&D is not appropriate in the ED at this time. IV access is obtained, labs of been drawn and sent. Patient is administered vancomycin [address] soft tissue of the neck has been ordered and is pending. Plan is to admit patient for IV antibiotics. Signed out to Alisson Ortiz to follow CT results and admit patient. Medical Screen Exam Complete: Yes Emergency Medical Condition: Yes Differential Diagnosis Differential Diagnosis: Abscess versus cellulitis versus cyst Lab Data Result diagrams: 12/17/17 15:25 12/17/17 15:25 POC Results POC Urine Results Negative Lab Results 12/17/17 12/17/17 12/17/17 Range/Units 15:25 15:25 15:25 WBC 10.4 (4.0-11.0) th/mm3 RBC 4.48 (4.00-5.30) mil/mm3 Hgb 14.0 (11.6-15.3) gm/dL Hct 41.6 (35.0-46.0) % MCV 92.8 (80.0-100.0) fL MCH 31.1 (27.0-34.0) pg MCHC 33.5 (32.0-36.0) % RDW 13.4 (11.6-17.2) % Plt Count 205 (150-450) th/mm3 MPV 7.9 (7.0-11.0) fL Neut % (Auto) 78.8 H (16.0-70.0) % Lymph % (Auto) 12.4 (9.0-44.0) % Bureau % (Auto) 6.8 (0.0-8.0) % Eos % (Auto) 1.5 (0.0-4.0) % Baso % (Auto) 0.5 (0.0-2.0) % Neut # (Auto) 8.2 H (1.8-7.7) th/mm3 Lymph # (Auto) 1.3 (1.0-4.8) th/mm3 Bureau # (Auto) 0.7 (0.0-0.9) th/mm3 Eos # (Auto) 0.2 (0.0-0.4) th/mm3 Baso # (Auto) 0.1 (0.0-0.2) th/mm3 WBC Differential . Differential Comment Auto diff final ESR (0-20) mm/hr Sodium 142 (136-145) meq/L Potassium 3.4 L (3.5-5.1) meq/L Chloride 106 (98-107) meq/L Carbon Dioxide 28.5 (21.0-32.0) meq/L Anion Gap 8 (5-15) meq/L BUN 6 L (7-18) mg/dL Creatinine 0.67 (0.50-1.00) mg/dL Estimated GFR Greater than 89 (>89) mL/min Random Glucose 119 H (74-106) mg/dL Lactic Acid 0.9 (0.4-2.0) mmol/L Calcium 8.8 (8.5-10.1) mg/dL Total Bilirubin 0.7 (0.2-1.0) mg/dL AST 10 L (15-37) U/L ALT 15 (10-53) U/L Alkaline Phosphatase 66 (45-117) U/L C-Reactive Protein (0.00-0.30) mg/dL Total Protein 7.0 (6.4-8.2) g/dL Albumin 3.4 (3.4-5.0) g/dL 12/17/17 12/17/17 Range/Units 15:25 15:25 WBC (4.0-11.0) th/mm3 RBC (4.00-5.30) mil/mm3 Hgb (11.6-15.3) gm/dL Hct (35.0-46.0) % MCV (80.0-100.0) fL MCH (27.0-34.0) pg MCHC (32.0-36.0) % RDW (11.6-17.2) % Plt Count (150-450) th/mm3 MPV (7.0-11.0) fL Neut % (Auto) (16.0-70.0) % Lymph % (Auto) (9.0-44.0) % Bureau % (Auto) (0.0-8.0) % Eos % (Auto) (0.0-4.0) % Baso % (Auto) (0.0-2.0) % Neut # (Auto) (1.8-7.7) th/mm3 Lymph # (Auto) (1.0-4.8) th/mm3 Bureau # (Auto) (0.0-0.9) th/mm3 Eos # (Auto) (0.0-0.4) th/mm3 Baso # (Auto) (0.0-0.2) th/mm3 WBC Differential Differential Comment ESR 17 (0-20) mm/hr Sodium (136-145) meq/L Potassium (3.5-5.1) meq/L Chloride (98-107) meq/L Carbon Dioxide (21.0-32.0) meq/L Anion Gap (5-15) meq/L BUN (7-18) mg/dL Creatinine (0.50-1.00) mg/dL Estimated GFR (>89) mL/min Random Glucose (74-106) mg/dL Lactic Acid (0.4-2.0) mmol/L Calcium (8.5-10.1) mg/dL Total Bilirubin (0.2-1.0) mg/dL AST (15-37) U/L ALT (10-53) U/L Alkaline Phosphatase (45-117) U/L C-Reactive Protein 7.89 H (0.00-0.30) mg/dL Total Protein (6.4-8.2) g/dL Albumin (3.4-5.0) g/dL Discharge Plan Discharge Disposition Patient Disposition: 30 Still Patient Physicians Team ED Provider: Sumit Watson ED Midlevel Provider: Alisson Ortiz Primary Care Provider: UNKNOWN, Rxs /Orders / Referrals /Forms Prescriptions: No Action No Known Home Medications RF: 0 Discharge Interventions Interventions: Vital Signs Last Done: 12/17/17 18:06 Status ED Status: Pending Admission
[2017-12-17 16:56] LABS: Baso # (Auto) 0.1 th/mm3 (0.0-0.2); Baso % (Auto) 0.5 % (0.0-2.0); Eos # (Auto) 0.2 th/mm3 (0.0-0.4); Eos % (Auto) 1.5 % (0.0-4.0); Hematocrit 41.6 % (35.0-46.0); Lymph # (Auto) 1.3 th/mm3 (1.0-4.8); Lymph % (Auto) 12.4 % (9.0-44.0); Mean Corpuscular HGB Conc 33.5 % (32.0-36.0); Mean Corpuscular Hemoglobin 31.1 pg (27.0-34.0); Mean Corpuscular Volume 92.8 fL (80.0-100.0); Mean Platelet Volume 7.9 fL (7.0-11.0); Mono # (Auto) 0.7 th/mm3 (0.0-0.9); Mono % (Auto) 6.8 % (0.0-8.0); Neut # (Auto) 8.2 th/mm3 (1.8-7.7); Neut % (Auto) 78.8 % (16.0-70.0); Platelet Count 205 th/mm3 (150-450); Red Blood Count 4.48 mil/mm3 (4.00-5.30); Red Cell Distribution Width 13.4 % (11.6-17.2); White Blood Count 10.4 th/mm3 (4.0-11.0)
[2017-12-17] MEDS ORDERED: Vancomycin Inj 1 GM/200 ML PIGGYBACK IV.SIG SCH (17:00)
[2017-12-17 17:16] LABS: Alanine Aminotransferase 15 U/L (10-53); Albumin 3.4 g/dL (3.4-5.0); Anion Gap 8 meq/L (5-15); Aspartate Aminotransferase 10 U/L (15-37); Blood Urea Nitrogen 6 mg/dL (7-18); Calcium 8.8 mg/dL (8.5-10.1); Carbon Dioxide 28.5 meq/L (21.0-32.0); Chloride 106 meq/L (98-107); Glomerular Filtration Rate Greater Than 89 mL/min (>89); Glucose,Random 119 mg/dL (74-106); Potassium 3.4 meq/L (3.5-5.1); Sodium 142 meq/L (136-145)
[2017-12-17 17:18] LABS: Alkaline Phosphatase 66 U/L (45-117)
[2017-12-17] MEDS ORDERED: Vancomycin Inj 1,000 MG in Sodium Chlor 0.9% Inj 250 ML IV.SIG ONE (17:45)
--- NOTE | 2017-12-17 19:12 | CT ---
EXAM DATE: 12/17/2017 7:01 PM EDT AGE/SEX: 47 years / Female INDICATIONS: Posterior neck abscess for 1 week. CLINICAL DATA: This is the patient's initial encounter. Patient reports that signs and symptoms have been present for 1 week and indicates a pain score of 5/10. MEDICAL/SURGICAL HISTORY: None. None. RADIATION DOSE: 25.42 CTDI (mGy) COMPARISON: No prior exams available for comparison. TECHNIQUE: Helical acquisition was performed using a multirow detector CT scanner during the adminis tration of 70 ml Omnipaque 350 (iohexol) nonionic water-soluble contrast as a single exam dose. Usi ng automated exposure control and adjustment of the mA and/or kV according to patient size, radiation dose was kept as low as reasonably achievable to obtain optimal diagnostic quality images. DICOM fo rmat image data is available electronically for review and comparison. FINDINGS: Severe ill-defined posterior superficial soft tissue edema of the neck centered at the level of C5. N o organized peripherally enhancing fluid collection identified. The edema extends to the paraspinous muscles. No fluid collections identified within the muscles. Nasopharynx, oropharynx, hypopharynx, and larynx within normal limits. Thyroid is mildly diffusely heterogeneous. Parotid and submandibular glands within normal limits. Mild ethmoid sinus opacification and moderate maxillary sinus mucosal thickening bilaterally. No evid ence of focal bone erosion. Lung apices are clear. CONCLUSION: Ill-defined posterior superficial soft tissue edema extending into the posterior musculature. No orga nized abscess identified. Electronically signed by: Jay Desai MD 12/17/2017 7:11 PM EDT
[2017-12-17] MEDS ORDERED: Vancomycin Consult Pharmacy OTHER PRN (19:58)
[2017-12-17] MEDS ORDERED: Bisacodyl 10 MG Supp RECTAL PRN (19:59)
--- NOTE | 2017-12-17 20:46 | P.HPIM ---
History of Present Illness Primary Care Physician: UNKNOWN History of Present Illness: This is a 47-year-old Deaf/Blind female w/ no significant PMH reported who presented to the ER w/ complaints of neck pain x5 days. is blind, marble polisher hand services at bedside during exam. Reports increasing pain and swelling to the back of neck, pain is constant, severe, 10/10, non-radiating, associated w/ headache. Denies fever or chills. On arrival, BP 161/91, HR 80, Temp 99.0. CBC unremarkable. Chemistry essentially unremarkable. Lactic Acid normal. CT Neck with ill-defined superficial soft tissue edema extending into posterior musculature, no abscess identified. S/p Vanc in ER. - Diagnosis (1) Cellulitis, neck (2) Intractable pain Review of Systems PAST FAMILY HISTORY: Reviewed. No h/o DM or CAD All other systems reviewed negative except as stated in HPI PMFSH - History History Provided By: Patient - Tobacco History Smoking Status: Unknown if ever smoked - Alcohol History How Often Do You Have a Drink Containing Alcohol: Unable to Obtain - Substance Use History Substance History: Unable to Obtain - Travel History Recent Travel in the [facility] Within the Last 8 Weeks: No Recent Travel Out of the Country Within the Last 8 Weeks: No Medications and Allergies Active Medications: Active Medications Al Hydroxide/Mg Hydroxide (Milk Of Magnesia Liq) 30 ml PO Q12H PRN PRN Reason: Mild Constipation Bisacodyl (Dulcolax Supp) 10 mg RECTAL DAILY PRN PRN Reason: SEVERE CONSITIPATION Aztreonam 2 gm/ Sodium (Chloride) 100 mls @ 200 mls/hr IV.SIG Q8H MARYAN Sodium Chloride (Ns Inj) 1,000 mls @ 100 mls/hr IV.CONT .Q10H MARYAN Vancomycin HCl 1,000 mg/ (Sodium Chloride) 250 mls @ 250 mls/hr IV.SIG Q12H MARYAN Lactulose (Lactulose Liq) 30 ml PO DAILY PRN PRN Reason: SEVERE CONSITIPATION Miscellaneous Information ([facility] Ordered Lab Info) 1 each OTHER ONCE ONE Stop: 12/19/17 05:46 Morphine Sulfate (Morphine Inj) 2 mg IV.PUSH Q4H PRN PRN Reason: PAIN 6-10 Ondansetron HCl (Zofran Inj) 4 mg IV.PUSH Q6H PRN PRN Reason: NAUSEA OR VOMITING Pharmacy Profile Note (Vancomycin Consult Pharmacy) 1 each OTHER UNSCH PRN PRN Reason: Pharmacy to dose Senna/Docusate Sodium (Mercedes-Colace) 1 tab PO BID MARYAN Sennosides (Senokot) 17.2 mg PO Q12H PRN PRN Reason: Moderate Constipation Allergies Allergy/AdvReac Type Severity Reaction Status Date / Time penicillin G Allergy Unknown Unverified 07/15/17 16:53 Home Medications Medication Instructions Recorded Confirmed Type No Known Home Medications 12/17/17 12/17/17 History Exam Vital signs: Vital Signs 12/17/17 14:01 12/17/17 18:06 Temperature 99.0 F Pulse Rate 87 81 Respiratory Rate 16 17 Blood Pressure 161/91 H 154/82 H Pulse Oximetry 97 98 Intake & Output 12/17/17 12/17/17 12/18/17 06:59 18:59 06:59 Intake Total 250 / 250 Balance 250 / 250 Weight 56 kg Intake: IV 250 / 250 Vancomycin Inj 1,000 MG In NS 250 / 250 Inj 250 ML @ 200 mls/hr IV.SIG ONCE ONE Rx#:[id number] Narrative: PE: GENERAL: Middle-aged white female in no acute distress. Deaf/Blind, +signing w/ marble polisher hand. and son at bedside. SKIN: Focused skin assessment warm and dry. HEENT: PERRLA, EOMI. No scleral icterus or conjunctival pallor. No lid lag or facial droop. CARDIOVASCULAR: Regular rate and rhythm. No obvious murmurs to auscultation. No chest tenderness to palpation. RESPIRATORY: No obvious rhonchi or wheezing. Clear to auscultation. Breath sounds equal bilaterally. GASTROINTESTINAL: Abdomen soft, non-tender, nondistended. BS normal. MUSCULOSKELETAL: Extremities without clubbing, cyanosis, or edema. No obvious deformities. Posterior neck w/ large area of erythema and induration, central scab, no purulent drainage, no fluctuance. NEUROLOGICAL: Awake, alert and oriented x4. No focal neurologic deficits. Moving both upper and lower extremities spontaneously. PSYCHIATRIC: Appropriate mood and affect. Insight and judgment normal. Results - Labs CBC & Chem 7: 12/17/17 15:25 12/17/17 15:25 Labs: Short CBC 12/17/17 Range/Units 15:25 WBC 10.4 (4.0-11.0) th/mm3 Hgb 14.0 (11.6-15.3) gm/dL Hct 41.6 (35.0-46.0) % Plt Count 205 (150-450) th/mm3 BMP 12/17/17 15:25 Sodium 142 Potassium 3.4 L Chloride 106 Carbon Dioxide 28.5 BUN 6 L Creatinine 0.67 Calcium 8.8 Liver Function 12/17/17 Range/Units 15:25 Total Bilirubin 0.7 (0.2-1.0) mg/dL AST 10 L (15-37) U/L ALT 15 (10-53) U/L Alkaline Phosphatase 66 (45-117) U/L Albumin 3.4 (3.4-5.0) g/dL - Imaging Impressions Soft Tissue Neck CT 12/17/17 16:09 CONCLUSION: Ill-defined posterior superficial soft tissue edema extending into the posterior musculature. No organized abscess identified. Caprini VTE Risk Assessment Caprini VTE Risk Assessment: No/Low Risk (score <= 1) Caprini Risk Assessment Model: Point Value = 1 Point Value = 2 Point Value = 3 Point Value = 5 Age 41-60 Minor surgery BMI > 25 kg/m2 Swollen legs Varicose veins or History of unexplained or recurrent spontaneous Oral contraceptives or hormone replacement Sepsis (< 1 month) Serious lung disease, including pneumonia (< 1 month) Abnormal pulmonary function Acute myocardial infarction Congestive heart failure (< 1 month) History of inflammatory bowel disease Medical patient at bed rest Age 61-74 Arthroscopic surgery Major open surgery (> 45 min) Laparoscopic surgery (> 45 min) Malignancy Confined to bed (> 72 hours) Immobilizing plaster cast Central venous access Age >= 75 History of VTE Family history of VTE Factor V Leiden Prothrombin [id number] Lupus anticoagulant Anticardiolipin antibodies Elevated serum homocysteine Heparin-induced thrombocytopenia Other congenital or acquired thrombophilia Stroke (< 1 month) Elective arthroplasty Hip, pelvis, or leg fracture Acute spinal cord injury (< 1 month) Prophylaxis Regimen: Total Risk Factor Score Risk Level Prophylaxis Regimen 0-1 Low Early ambulation 2 Moderate Order ONE of the following: *Sequential Compression Device (SCD) *Heparin 5000 units SQ BID 3-4 Higher Order ONE of the following medications: *Heparin 5000 units SQ TID *Enoxaparin/Lovenox 40 mg SQ daily (WT < 150 kg, CrCl > 30 mL/min) *Enoxaparin/Lovenox 30 mg SQ daily (WT < 150 kg, CrCl > 10-29 mL/min) *Enoxaparin/Lovenox 30 mg SQ BID (WT < 150 kg, CrCl > 30 mL/min) AND/OR *Sequential Compression Device (SCD) 5 or more Highest Order ONE of the following medications: *Heparin 5000 units SQ TID (Preferred with Epidurals) *Enoxaparin/Lovenox 40 mg SQ daily (WT < 150 kg, CrCl > 30 mL/min) *Enoxaparin/Lovenox 30 mg SQ daily (WT < 150 kg, CrCl > 10-29 mL/min) *Enoxaparin/Lovenox 30 mg SQ BID (WT < 150 kg, CrCl > 30 mL/min) AND *Sequential Compression Device (SCD) Assessment and Plan - Assessment (1) Cellulitis, neck Code(s): L03.221 - Cellulitis of neck Status: Acute (2) Intractable pain Code(s): R52 - Pain, unspecified Status: Acute - Plan A/P: 1. Neck Cellulitis: c/o erythema/pain to posterior neck x5 days, CT Neck w/ large area of soft tissue edema extending into musculature, however no abscess, images reviewed. S/p Vanc in ER, will continue w/ IV Abx. 2. Intractable Pain: c/o ongoing pain and headache, secondary to above, continue w/ analgesics/antiemetics as needed 3. DVT Prophylaxis: SCD/Teds 4. Social work for d/c planning as needed. Pt deaf/blind, blind, son reads/signs 5. Case discussed w/ ER physician at length, labs/records/imaging reviewed by me.
[2017-12-17] MEDS: Sod Chloride 0.9% Inj 1,000 ML IV.CONT SCH ×2 (21:01→21:29)
[2017-12-17] MEDS: Aztreonam Inj 2 GM in Sodium Chloride 0.9% Inj 100 ML IV.SIG SCH (21:29)
[2017-12-17] MEDS: Senna/Docusate Sodium 8.6/50 MG Tablet PO SCH (21:32)
[2017-12-18] MEDS: Aztreonam Inj 2 GM in Sodium Chloride 0.9% Inj 100 ML IV.SIG SCH ×3 (03:52→20:01)
[2017-12-18] MEDS ORDERED: HYDROmorphone PF Inj 2 MG/ML Vial IV.PUSH ONE (05:26)
[2017-12-18] MEDS: Sod Chloride 0.9% Inj 1,000 ML IV.CONT SCH ×2 (05:32→15:55)
[2017-12-18 06:28] LABS: Alanine Aminotransferase 11 U/L (10-53); Albumin 2.9 g/dL (3.4-5.0); Alkaline Phosphatase 62 U/L (45-117); Anion Gap 11 meq/L (5-15); Aspartate Aminotransferase 7 U/L (15-37); Blood Urea Nitrogen 4 mg/dL (7-18); Calcium 7.9 mg/dL (8.5-10.1); Carbon Dioxide 25.1 meq/L (21.0-32.0); Chloride 105 meq/L (98-107); Glomerular Filtration Rate Greater Than 89 mL/min (>89); Glucose,Random 109 mg/dL (74-106); Potassium 3.6 meq/L (3.5-5.1); Sodium 141 meq/L (136-145); Total Protein 6.4 g/dL (6.4-8.2)
[2017-12-18 06:53] LABS: Baso # (Auto) 0.1 th/mm3 (0.0-0.2); Baso % (Auto) 0.8 % (0.0-2.0); Eos # (Auto) 0.2 th/mm3 (0.0-0.4); Eos % (Auto) 1.8 % (0.0-4.0); Hematocrit 36.7 % (35.0-46.0); Hemoglobin 12.2 gm/dL (11.6-15.3); Lymph # (Auto) 1.6 th/mm3 (1.0-4.8); Lymph % (Auto) 15.9 % (9.0-44.0); Mean Corpuscular HGB Conc 33.1 % (32.0-36.0); Mean Corpuscular Volume 93.6 fL (80.0-100.0); Mono # (Auto) 0.8 th/mm3 (0.0-0.9); Mono % (Auto) 7.9 % (0.0-8.0); Neut # (Auto) 7.5 th/mm3 (1.8-7.7); Neut % (Auto) 73.6 % (16.0-70.0); Platelet Count 192 th/mm3 (150-450); Red Blood Count 3.92 mil/mm3 (4.00-5.30); Red Cell Distribution Width 13.1 % (11.6-17.2); White Blood Count 10.1 th/mm3 (4.0-11.0)
[2017-12-18] MEDS: Senna/Docusate Sodium 8.6/50 MG Tablet PO SCH ×2 (08:36→22:43)
[2017-12-18] MEDS: Vancomycin Inj 1,000 MG in Sodium Chlor 0.9% Inj 250 ML IV.SIG SCH ×2 (08:36→17:26)
[2017-12-18] MEDS: Morphine Sulfate Inj 2 MG/ML Vial IV.PUSH PRN ×3 (09:47→19:32)
--- NOTE | 2017-12-18 15:28 | P.PN ---
Subjective Interval history: Patient is seen sitting up in bed. Molder Operator is present -patient is blind and deaf. Patient tells us that her neck is very painful and she has had multiple recent episodes of skin infections. Denies any chest pain or shortness of breath. Denies any nausea vomiting or diarrhea. She is very anxious about these infections. Physical Exam Vital signs: Vital Signs 12/17/17 18:06 12/18/17 00:00 12/18/17 04:00 Temperature 97.5 F L 97.5 F L Pulse Rate 81 64 64 Respiratory Rate 17 21 21 Blood Pressure 154/82 H 135/85 135/85 Pulse Oximetry 98 98 95 12/18/17 05:16 12/18/17 12:52 Temperature 98.2 F Pulse Rate 80 Respiratory Rate 18 20 Blood Pressure 130/70 Pulse Oximetry 96 Intake & Output 12/17/17 12/18/17 12/18/17 18:59 06:59 18:59 Intake Total 1510 / 1510 310 / 310 Balance 1510 / 1510 310 / 310 Weight 56 kg 55.792 kg Intake: IV 1450 / 1450 250 / 250 NS Inj 1,000 ML @ 100 mls/hr IV 1000 / 1000 .CONT .Q10H MARYAN Rx#:[id number] Azactam Inj 2 GM In NS Inj 100 200 / 200 ML @ 200 mls/hr IV.SIG Q8H MARYAN Rx#:[id number] Vancomycin Inj 1,000 MG In NS 250 / 250 250 / 250 Inj 250 ML @ 250 mls/hr IV.SIG Q12H MARYAN Rx#:[id number] Oral 60 / 60 60 / 60 Other: # Voids 1 1 Narrative: GENERAL: Middle-aged white female in no acute distress. Deaf/Blind, +signing w/ control systems specialist. SKIN: Focused skin assessment warm and dry. HEENT: PERRLA, EOMI. No scleral icterus or conjunctival pallor. No lid lag or facial droop. CARDIOVASCULAR: Regular rate and rhythm. No obvious murmurs to auscultation. No chest tenderness to palpation. RESPIRATORY: No obvious rhonchi or wheezing. Clear to auscultation. Breath sounds equal bilaterally. GASTROINTESTINAL: Abdomen soft, non-tender, nondistended. BS normal. MUSCULOSKELETAL: Extremities without clubbing, cyanosis, or edema. No obvious deformities. Posterior neck w/ large area of erythema and induration, central scab, no purulent drainage, no fluctuance. Smaller lesions seen mid thoracic as well as on the left thigh. NEUROLOGICAL: Awake, alert and oriented x4. No focal neurologic deficits. Moving both upper and lower extremities spontaneously. PSYCHIATRIC: Appropriate mood and affect. Insight and judgment normal. Results - Labs CBC & Chem 7: 12/18/17 05:50 12/18/17 05:45 Laboratory Results - last 24 hr 12/17/17 12/17/17 12/17/17 15:25 15:25 15:25 WBC 10.4 RBC 4.48 Hgb 14.0 Hct 41.6 MCV 92.8 MCH 31.1 MCHC 33.5 RDW 13.4 Plt Count 205 MPV 7.9 Neut % (Auto) 78.8 H Lymph % (Auto) 12.4 [place] % (Auto) 6.8 Eos % (Auto) 1.5 Baso % (Auto) 0.5 Neut # (Auto) 8.2 H Lymph # (Auto) 1.3 [place] # (Auto) 0.7 Eos # (Auto) 0.2 Baso # (Auto) 0.1 WBC Differential . Differential Comment Auto diff final ESR Sodium 142 Potassium 3.4 L Chloride 106 Carbon Dioxide 28.5 Anion Gap 8 BUN 6 L Creatinine 0.67 Estimated GFR Greater than 89 Random Glucose 119 H Lactic Acid 0.9 Calcium 8.8 Total Bilirubin 0.7 AST 10 L ALT 15 Alkaline Phosphatase 66 C-Reactive Protein Total Protein 7.0 Albumin 3.4 12/17/17 12/17/17 12/18/17 15:25 15:25 05:45 WBC RBC Hgb Hct MCV MCH MCHC RDW Plt Count MPV Neut % (Auto) Lymph % (Auto) [place] % (Auto) Eos % (Auto) Baso % (Auto) Neut # (Auto) Lymph # (Auto) [place] # (Auto) Eos # (Auto) Baso # (Auto) WBC Differential Differential Comment ESR 17 Sodium 141 Potassium 3.6 Chloride 105 Carbon Dioxide 25.1 Anion Gap 11 BUN 4 L Creatinine 0.62 Estimated GFR Greater than 89 Random Glucose 109 H Lactic Acid Calcium 7.9 L D Total Bilirubin 0.6 AST 7 L ALT 11 Alkaline Phosphatase 62 C-Reactive Protein 7.89 H Total Protein 6.4 D Albumin 2.9 L 12/18/17 05:50 WBC 10.1 RBC 3.92 L Hgb 12.2 Hct 36.7 MCV 93.6 MCH 31.0 MCHC 33.1 RDW 13.1 Plt Count 192 MPV 8.0 Neut % (Auto) 73.6 H Lymph % (Auto) 15.9 [place] % (Auto) 7.9 Eos % (Auto) 1.8 Baso % (Auto) 0.8 Neut # (Auto) 7.5 Lymph # (Auto) 1.6 [place] # (Auto) 0.8 Eos # (Auto) 0.2 Baso # (Auto) 0.1 WBC Differential . Differential Comment Auto diff final ESR Sodium Potassium Chloride Carbon Dioxide Anion Gap BUN Creatinine Estimated GFR Random Glucose Lactic Acid Calcium Total Bilirubin AST ALT Alkaline Phosphatase C-Reactive Protein Total Protein Albumin Microbiology 12/17/17 16:20 Blood - Peripheral Aerobic Blood Culture - Preliminary No growth in 1 day 12/17/17 16:20 Blood - Peripheral Anaerobic Blood Culture - Preliminary No growth in 1 day 12/17/17 15:25 Blood - Peripheral Aerobic Blood Culture - Preliminary No growth in 1 day 12/17/17 15:25 Blood - Peripheral Anaerobic Blood Culture - Preliminary No growth in 1 day - Imaging Impressions Soft Tissue Neck CT 12/17/17 16:09 CONCLUSION: Ill-defined posterior superficial soft tissue edema extending into the posterior musculature. No organized abscess identified. Assessment and Plan - Assessment (1) Cellulitis, neck Code(s): L03.221 - Cellulitis of neck Status: Acute (2) Intractable pain Code(s): R52 - Pain, unspecified Status: Acute - Plan A/P: Neck Cellulitis: -CT Neck w/ large area of soft tissue edema extending into musculature, however no abscess. -S/p Vanc in ER, will continue w/ IV Abx. 2. Intractable Pain: c/o ongoing pain and headache, secondary to above, continue w/ analgesics/antiemetics as needed 3. DVT Prophylaxis: SCD/Teds 4. Social work for d/c planning as needed. Pt deaf/blind, blind, son reads/signs
[2017-12-18] MEDS ORDERED: oxyCODONE/Acetaminophen 10/325 Tablet PO ONE (22:30)
[2017-12-19] MEDS: Sod Chloride 0.9% Inj 1,000 ML IV.CONT SCH ×3 (02:15→23:02)
[2017-12-19] MEDS: Aztreonam Inj 2 GM in Sodium Chloride 0.9% Inj 100 ML IV.SIG SCH ×3 (03:38→20:15)
[2017-12-19] MEDS: Morphine Sulfate Inj 2 MG/ML Vial IV.PUSH PRN ×3 (03:51→22:58)
[2017-12-19] MEDS ORDERED: Pharmacy Ordered Lab Info OTHER ONE (05:45)
[2017-12-19 05:57] LABS: Baso # (Auto) 0.1 th/mm3 (0.0-0.2); Baso % (Auto) 0.7 % (0.0-2.0); Eos # (Auto) 0.2 th/mm3 (0.0-0.4); Eos % (Auto) 2.4 % (0.0-4.0); Hematocrit 36.3 % (35.0-46.0); Hemoglobin 12.2 gm/dL (11.6-15.3); Lymph # (Auto) 1.6 th/mm3 (1.0-4.8); Lymph % (Auto) 16.7 % (9.0-44.0); Mean Corpuscular HGB Conc 33.7 % (32.0-36.0); Mean Corpuscular Hemoglobin 31.2 pg (27.0-34.0); Mean Corpuscular Volume 92.5 fL (80.0-100.0); Mean Platelet Volume 8.2 fL (7.0-11.0); Mono # (Auto) 0.8 th/mm3 (0.0-0.9); Mono % (Auto) 8.6 % (0.0-8.0); Neut # (Auto) 6.8 th/mm3 (1.8-7.7); Neut % (Auto) 71.6 % (16.0-70.0); Platelet Count 212 th/mm3 (150-450); Red Blood Count 3.92 mil/mm3 (4.00-5.30); Red Cell Distribution Width 12.8 % (11.6-17.2); White Blood Count 9.5 th/mm3 (4.0-11.0)
[2017-12-19] MEDS: Vancomycin Inj 1,000 MG in Sodium Chlor 0.9% Inj 250 ML IV.SIG SCH (06:15)
[2017-12-19 06:20] LABS: Anion Gap 9 meq/L (5-15); Blood Urea Nitrogen 4 mg/dL (7-18); Calcium 8.3 mg/dL (8.5-10.1); Carbon Dioxide 26.5 meq/L (21.0-32.0); Chloride 103 meq/L (98-107); Glomerular Filtration Rate Greater Than 89 mL/min (>89); Glucose,Random 105 mg/dL (74-106); Potassium 3.5 meq/L (3.5-5.1); Sodium 138 meq/L (136-145)
[2017-12-19] MEDS: Senna/Docusate Sodium 8.6/50 MG Tablet PO SCH ×2 (10:23→23:02)
--- NOTE | 2017-12-19 11:53 | US ---
EXAM DATE: 12/19/2017 11:47 AM EDT AGE/SEX: 47 years / Female INDICATIONS: Neck swelling and redness. CLINICAL DATA: This is the patient's initial encounter. Patient reports that signs and symptoms have been present for 1 week and indicates a pain score of 7/10. MEDICAL/SURGICAL HISTORY: . Deafness. Blindness. None. COMPARISON: No prior exams available for comparison. FINDINGS: There is phlegmonous change without evidence of abscess. Subcutaneous edema is present. CONCLUSION: 1. Phlegmon without evidence of abscess Electronically signed by: August Mendez MD 12/19/2017 11:52 AM EDT
[2017-12-19] MEDS: Vancomycin Inj 1,250 MG in Sodium Chlor 0.9% Inj 250 ML IV.SIG SCH (13:06)
--- NOTE | 2017-12-19 15:28 | P.PN ---
Subjective Interval history: Patient is seen sitting up in bed. Wind Field Service Manager is present. Patient continues to complain of neck pain and headache. Denies fever or chills. No nausea or vomiting. Continues to be very anxious. Physical Exam Vital signs: Vital Signs 12/18/17 16:00 12/18/17 19:19 12/18/17 23:25 Temperature 98.0 F 98.6 F 99.9 F H Pulse Rate 84 83 91 H Respiratory Rate 16 20 19 Blood Pressure 123/70 145/95 H 150/90 H Pulse Oximetry 97 98 98 12/19/17 04:00 12/19/17 07:30 12/19/17 11:21 Temperature 98.5 F 98.3 F 98.9 F Pulse Rate 71 84 84 Respiratory Rate 20 16 18 Blood Pressure 141/94 H 170/101 H 153/92 H Pulse Oximetry 98 98 97 Intake & Output 12/18/17 12/19/17 12/19/17 18:59 06:59 18:59 Intake Total 1660 / 1660 680 / 680 440 / 440 Balance 1660 / 1660 680 / 680 440 / 440 Weight 55.792 kg Intake: IV 1600 / 1600 200 / 200 400 / 400 NS Inj 1,000 ML @ 100 mls/hr IV 1000 / 1000 400 / 400 .CONT .Q10H MARYAN Rx#:[id number] Azactam Inj 2 GM In NS Inj 100 100 / 100 200 / 200 ML @ 200 mls/hr IV.SIG Q8H MARYAN Rx#:[id number] Vancomycin Inj 1,000 MG In NS 500 / 500 Inj 250 ML @ 250 mls/hr IV.SIG Q12H MARYAN Rx#:[id number] Oral 60 / 60 480 / 480 40 / 40 Other: # Voids 3 2 0 Narrative: GENERAL: Middle-aged white female in no acute distress. Deaf/Blind, +signing w/ director of retention. SKIN: Focused skin assessment warm and dry. HEENT: PERRLA, EOMI. No scleral icterus or conjunctival pallor. No lid lag or facial droop. CARDIOVASCULAR: Regular rate and rhythm. No obvious murmurs to auscultation. No chest tenderness to palpation. RESPIRATORY: No obvious rhonchi or wheezing. Clear to auscultation. Breath sounds equal bilaterally. GASTROINTESTINAL: Abdomen soft, non-tender, nondistended. BS normal. MUSCULOSKELETAL: Extremities without clubbing, cyanosis, or edema. No obvious deformities. Posterior neck w/ large area of erythema and induration, central scab, no purulent drainage, no fluctuance. Smaller lesions seen mid thoracic as well as on the left thigh. NEUROLOGICAL: Awake, alert and oriented x4. No focal neurologic deficits. Moving both upper and lower extremities spontaneously. PSYCHIATRIC: Appropriate mood and affect. Insight and judgment normal. Results - Labs CBC & Chem 7: 12/19/17 05:28 12/19/17 05:28 Laboratory Results - last 24 hr 12/19/17 12/19/17 05:28 05:28 WBC 9.5 RBC 3.92 L Hgb 12.2 Hct 36.3 MCV 92.5 MCH 31.2 MCHC 33.7 RDW 12.8 Plt Count 212 MPV 8.2 Neut % (Auto) 71.6 H Lymph % (Auto) 16.7 [place] % (Auto) 8.6 H Eos % (Auto) 2.4 Baso % (Auto) 0.7 Neut # (Auto) 6.8 Lymph # (Auto) 1.6 [place] # (Auto) 0.8 Eos # (Auto) 0.2 Baso # (Auto) 0.1 WBC Differential . Differential Comment Auto diff final Sodium 138 Potassium 3.5 Chloride 103 Carbon Dioxide 26.5 Anion Gap 9 BUN 4 L Creatinine 0.56 Estimated GFR Greater than 89 Random Glucose 105 Calcium 8.3 L Vancomycin Trough 6.0 Microbiology 12/17/17 16:20 Blood - Peripheral Aerobic Blood Culture - Preliminary No growth in 2 days 12/17/17 16:20 Blood - Peripheral Anaerobic Blood Culture - Preliminary No growth in 2 days 12/17/17 15:25 Blood - Peripheral Aerobic Blood Culture - Preliminary No growth in 2 days 12/17/17 15:25 Blood - Peripheral Anaerobic Blood Culture - Preliminary No growth in 2 days 12/18/17 11:00 Wound - Neck Gram Stain - Final - Imaging Impressions Neck Ultrasound 12/19/17 00:00 CONCLUSION: 1. Phlegmon without evidence of abscess Assessment and Plan - Assessment (1) Cellulitis, neck Code(s): L03.221 - Cellulitis of neck Status: Acute (2) Intractable pain Code(s): R52 - Pain, unspecified Status: Acute - Plan Patient is a 47-year-old 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 History of homelessness. No known significant past medical history. Presented to the emergency room with a complaint of a hard painful red bump on the back of her neck for over 5 days. Neck Cellulitis: -CT Neck w/ large area of soft tissue edema extending into musculature, however no abscess. Repeat ultrasound 12/19 again indicated no abscess. -S/p Vanc in ER, will continue w/ IV Abx. 2. Intractable Pain: c/o ongoing pain and headache, secondary to above, continue w/ analgesics/antiemetics as needed 3. DVT Prophylaxis: SCD/Teds 4. Social work for d/c planning as needed. Pt deaf/blind, blind, son reads/signs
[2017-12-20] MEDS: Vancomycin Inj 1,250 MG in Sodium Chlor 0.9% Inj 250 ML IV.SIG SCH ×2 (03:04→13:12)
[2017-12-20] MEDS: Morphine Sulfate Inj 2 MG/ML Vial IV.PUSH PRN ×3 (03:04→22:41)
[2017-12-20] MEDS: Aztreonam Inj 2 GM in Sodium Chloride 0.9% Inj 100 ML IV.SIG SCH ×3 (05:20→22:26)
[2017-12-20] MEDS: Sod Chloride 0.9% Inj 1,000 ML IV.CONT SCH ×4 (06:20→22:55)
[2017-12-20] MEDS: Senna/Docusate Sodium 8.6/50 MG Tablet PO SCH ×2 (09:19→22:26)
--- NOTE | 2017-12-20 10:26 | P.PNIM ---
Subjective Interval history: Patient seen with cream cheese maker. Patient reports that pain is controlled. Denies any chest pain or shortness of breath. Physical Exam Vital signs: Vital Signs 12/19/17 11:21 12/19/17 20:00 12/20/17 00:00 Temperature 98.9 F 98.2 F 98.7 F Pulse Rate 84 87 85 Respiratory Rate 18 20 20 Blood Pressure 153/92 H 170/106 H 166/98 H Pulse Oximetry 97 96 97 12/20/17 04:00 12/20/17 08:00 Temperature 98.3 F 97.9 F Pulse Rate 79 68 Respiratory Rate 17 18 Blood Pressure 147/74 H 111/61 Pulse Oximetry 96 97 Intake & Output 12/19/17 12/20/17 12/20/17 18:59 06:59 18:59 Intake Total 1402.5 / 1402.5 1462.5 / 1462.5 Balance 1402.5 / 1402.5 1462.5 / 1462.5 Intake: IV 1362.5 / 1362.5 1462.5 / 1462.5 NS Inj 1,000 ML @ 100 mls/hr IV 1000 / 1000 1000 / 1000 .CONT .Q10H MARYAN Rx#:[id number] Azactam Inj 2 GM In NS Inj 100 100 / 100 200 / 200 ML @ 200 mls/hr IV.SIG Q8H MARYAN Rx#:[id number] Vancomycin Inj 1,250 MG In NS 262.5 / 262.5 262.5 / 262.5 Inj 250 ML @ 250 mls/hr IV.SIG Q12H MARYAN Rx#:[id number] Oral 40 / 40 Other: # Voids 0 6 Narrative: GENERAL: Patient sitting up in bed. Appears comfortable. SKIN: Warm and dry. HEAD: Normocephalic. EYES: No scleral icterus. No injection or drainage. NECK: Supple, trachea midline. No JVD. Posterior neck marketed induration and erythema. Has been incised but not draining. CARDIOVASCULAR: Regular rate and rhythm without murmurs, gallops, or rubs. RESPIRATORY: Breath sounds equal bilaterally. No accessory muscle use. GASTROINTESTINAL: Abdomen soft, non-tender, nondistended. MUSCULOSKELETAL: No cyanosis, or edema. BACK: Nontender without obvious deformity. No CVA tenderness. Results - Labs CBC & Chem 7: 12/19/17 05:28 12/19/17 05:28 Microbiology 12/17/17 16:20 Blood - Peripheral Aerobic Blood Culture - Preliminary No growth in 2 days 12/17/17 16:20 Blood - Peripheral Anaerobic Blood Culture - Preliminary No growth in 2 days 12/17/17 15:25 Blood - Peripheral Aerobic Blood Culture - Preliminary No growth in 2 days 12/17/17 15:25 Blood - Peripheral Anaerobic Blood Culture - Preliminary No growth in 2 days 12/18/17 11:00 Wound - Neck Gram Stain - Final - Imaging Impressions Neck Ultrasound 12/19/17 00:00 CONCLUSION: 1. Phlegmon without evidence of abscess Assessment and Plan - Assessment (1) Cellulitis, neck Code(s): L03.221 - Cellulitis of neck Status: Acute (2) Intractable pain Code(s): R52 - Pain, unspecified Status: Acute - Plan Patient is a 47-year-old 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 History of homelessness. No known significant past medical history. Presented to the emergency room with a complaint of a hard painful red bump on the back of her neck for over 5 days. //posterior Neck Cellulitis: -CT Neck w/ large area of soft tissue edema extending into musculature, however no abscess. Repeat ultrasound 12/19 again indicated no abscess. -S/p Vanc in ER, will continue w/ IV Abx. = 12/20. Follow-up cultures from admission. Continue IV antibiotics. Ultrasound 12/19 with phlegmon. This is obviously infected and will need to be addressed. Will consult general surgery. // Intractable Pain: c/o ongoing pain and headache, secondary to above, continue w/ analgesics/antiemetics as needed // DVT Prophylaxis: SCD/Teds Discharge Planning: Case management following. Pending cultures.
--- NOTE | 2017-12-20 14:10 | P.CONGS ---
[facility] Gen Surgery Consult Note Consult date: 12/20/17 Reason for consult: other (neck abscess) Requesting physician: Cholo Leonard Narrative: This is a 47 year old female who is deaf and blind who presented to the ED after a 5 day history of a neck abscess. She states the area on her posterior neck has increased in size and is very tender. She denies any trauma to the area. She is unsure if an insect bit her. She reports chills but no fevers. She has been started on IV Vancomycin without significant improvement in the area. There is a small amount of drainage coming from the abscess. A CT was obtained on admission which shows an ill defined posterior area of soft tissue edema without organized abscess. A neck US was obtained yesterday which shows a phlegmon without evidence of abscess. The patient's WBC has remained normal. A General Surgery consultation has been requested. Of note, the history of present illness, ROS, exam, assessment and plan were is in accompaniment of the electronic publishing specialist, Tor. Review of Systems All other systems reviewed negative except as stated in [facility] PMFSH - History History Provided By: Patient - Medical History Medical History: Medical History (Last Updated 12/20/17 @ 13:59 by ESPERANZA Sharp) Abscess Encounter for recheck of abscess following incision and drainage H/O drainage of abscess - Tobacco History Second Hand Smoke Exposure: Yes Tobacco Use In Past 30 Days: Yes Smoking Status: Current every day smoker Tobacco Type: Cigarettes - Alcohol History How Often Do You Have a Drink Containing Alcohol: 2 to 4 times a month - Substance Use History Substance History: Active Abuse - Substance Use Type Marijuana Status: Active Route Used: Inhalation Reason for Use: Calm Down - Travel History Recent Travel in the [place] Within the Last 8 Weeks: No Recent Travel Out of the Country Within the Last 8 Weeks: No Medications and Allergies Allergies Allergy/AdvReac Type Severity Reaction Status Date / Time penicillin G Allergy Unknown Unverified 07/15/17 16:53 Home Medications Medication Instructions Recorded Confirmed Type No Known Home Medications 12/17/17 12/17/17 History Active Medications: Active Medications Al Hydroxide/Mg Hydroxide (Milk Of Magnhaylie Liq) 30 ml PO Q12H PRN PRN Reason: Mild Constipation Bisacodyl (Dulcolax Supp) 10 mg RECTAL DAILY PRN PRN Reason: SEVERE CONSITIPATION Aztreonam 2 gm/ Sodium (Chloride) 100 mls @ 200 mls/hr IV.SIG Q8H [facility] Last Infusion: 12/20/17 13:06 Dose: Infused Sodium Chloride (Ns Inj) 1,000 mls @ 100 mls/hr IV.CONT .Q10H [facility] Last Admin: 12/20/17 10:48 Dose: Not Given Vancomycin HCl 1,250 mg/ (Sodium Chloride) 262.5 mls @ 250 mls/hr IV.SIG Q12H [facility] Last Admin: 12/20/17 13:12 Dose: 250 mls/hr Lactulose (Lactulose Liq) 30 ml PO DAILY PRN PRN Reason: SEVERE CONSITIPATION Miscellaneous Information ([facility] Ordered Lab Info) 0 each OTHER ONCE ONE Stop: 12/21/17 11:46 Morphine Sulfate (Morphine Inj) 2 mg IV.PUSH Q4H PRN PRN Reason: PAIN 6-10 Last Admin: 12/20/17 09:15 Dose: 2 mg Ondansetron HCl (Zofran Inj) 4 mg IV.PUSH Q6H PRN PRN Reason: NAUSEA OR VOMITING Pharmacy Profile Note (Vancomycin Consult Pharmacy) 1 each OTHER UNSCH PRN PRN Reason: Pharmacy to dose Prochlorperazine Edisylate (Compazine Inj) 10 mg IV.PUSH Q6H PRN PRN Reason: NAUSEA/VOMITING Last Admin: 12/17/17 21:29 Dose: 10 mg Senna/Docusate Sodium (Mercedes-Colace) 1 tab PO BID [facility] Last Admin: 12/20/17 09:19 Dose: 1 tab Sennosides (Senokot) 17.2 mg PO Q12H PRN PRN Reason: Moderate Constipation Exam Vital signs: Vital Signs 12/19/17 20:00 12/20/17 00:00 12/20/17 04:00 Temperature 98.2 F 98.7 F 98.3 F Pulse Rate 87 85 79 Respiratory Rate 20 20 17 Blood Pressure 170/106 H 166/98 H 147/74 H Pulse Oximetry 96 97 96 12/20/17 08:00 12/20/17 12:00 Temperature 97.9 F 98.1 F Pulse Rate 68 84 Respiratory Rate 18 18 Blood Pressure 111/61 125/76 Pulse Oximetry 97 99 Intake & Output 12/19/17 12/20/17 12/20/17 18:59 06:59 18:59 Intake Total 1402.5 / 1402.5 1462.5 / 1462.5 100 / 100 Balance 1402.5 / 1402.5 1462.5 / 1462.5 100 / 100 Intake: IV 1362.5 / 1362.5 1462.5 / 1462.5 100 / 100 NS Inj 1,000 ML @ 100 mls/hr IV 1000 / 1000 1000 / 1000 .CONT .Q10H [facility] Rx#:[id number] Azactam Inj 2 GM In NS Inj 100 100 / 100 200 / 200 100 / 100 ML @ 200 mls/hr IV.SIG Q8H [facility] Rx#:[id number] Vancomycin Inj 1,250 MG In NS 262.5 / 262.5 262.5 / 262.5 Inj 250 ML @ 250 mls/hr IV.SIG Q12H [facility] Rx#:[id number] Oral 40 / 40 Other: # Voids 0 6 Narrative: GENERAL: Alert and awake 47 year old female resting in bed in no acute distress. SKIN: Multiple areas of healed scars secondary to abscess. See neck assessment below. HEAD: Atraumatic. Normocephalic. EYES: Unable to do full exam. ENT: No nasal bleeding or discharge. Mucous membranes pink and moist. NECK: Trachea midline. Posterior neck--- large indurated fluid filled abscess; red; areas surrounding ayla with only slight pressure; small amount of thin yellow drainage on gauze; tender; difficult to turn head right and left secondary to pain. CARDIOVASCULAR: Regular rate and rhythm. RESPIRATORY: No accessory muscle use. Clear to auscultation. Breath sounds equal bilaterally. GASTROINTESTINAL: Abdomen soft, non-tender, nondistended. MUSCULOSKELETAL: Extremities without clubbing, cyanosis, or edema. No obvious deformities. NEUROLOGICAL: Awake and alert. No obvious cranial nerve deficits. Motor grossly within normal limits. Five out of 5 muscle strength in the arms and legs. Nonverbal. PSYCHIATRIC: Appropriate mood and affect; insight and judgment normal. Results - Labs 12/19/17 05:28 12/19/17 05:28 All other labs normal. - Imaging Additional studies: CT neck of soft tissue and US of neck. Assessment and Plan - Assessment (1) Neck abscess Code(s): L02.11 - Cutaneous abscess of neck Status: Acute Plan: 47 year old female with large neck abscess -No improvement after several does of IV antibiotic -NPO -Plan for OR this evening -Patient is marked; obtain consents -Will notify the OR and make arrangements -Thank you for this consult; We will continue to follow - Plan I personally evaluated the patient in room 1735 with the assistance of Tiana MATA and the patient's licensed nursing assistant. The patient was awake and alert and expressed an understanding of the situation that she is in as well as the plan for incision, drainage, debridement of posterior neck abscess with possible placement of VAC dressing. Procedure in detail, expectations for recovery, expectations for hospitalization for VAC dressing changes at the bedside were discussed in detail. She has been n.p.o. since early this morning. Consent is on the chart. The operating room as indicated anticipated time for surgery at 5 PM. We communicated with the operating room that she is blind and deaf and requires an licensed nursing assistant for consent. Discussed Condition With: Dr. Olivia Powers RN and Bri ANGELES electronic publishing specialist Tor Rodriguez and at the bedside
[2017-12-20] MEDS ORDERED: fentaNYL Citrate Inj 250 MCG/5 ML Ampul ONE (16:10)
[2017-12-20] MEDS ORDERED: Lidocaine PF 1% Inj 5 ML Syringe OTHER ONE (17:45)
[2017-12-20] MEDS ORDERED: Glycopyrrolate Inj 1 MG/5 ML Syringe IV.PUSH ONE (17:45)
[2017-12-20] MEDS ORDERED: Neostigmine Inj 5 MG/5 ML Syringe IV.PUSH ONE (17:45)
--- NOTE | 2017-12-20 18:29 | P.OP ---
- Preoperative Diagnosis (1) Neck abscess - Postoperative Diagnosis (1) Neck abscess Date of procedure: 12/20/17 Procedure: Incision, drainage, debridement posterior neck abscess with placement of VAC dressing Surgeon: August Baker MD Bin Filler: Tamiko Estimated blood loss (mL): 20 Pathology: none sent Operation and Findings: Patient was identified as Venus Rodriguez, taken to the operating room, placed in a supine position. Following induction of adequate general endotracheal anesthesia the patient was placed in a prone position with all pressure points padded. Sequential compression device were placed on bilateral lower extremities. The area of concern was prepped and draped in usual sterile fashion with Betadine. A timeout procedure was performed. Following completion of timeout procedure everyone's satisfaction within the room, proposed elliptical incision was made including the open draining portion of the posterior neck abscess. Incision was carried out with a scalpel. Hemostasis was controlled electrocautery. The tissue was very indurated. There was not a discrete pocket of pus, however there was purulent material oozing throughout the indurated tissue. The majority of this was sharply debrided, excised, and discarded. Bleeding points were controlled with electrocautery. The wound was copiously irrigated with saline. Pressure was held within the wound. Small bleeding points were controlled with electrocautery. Once the wound was assured to be dry, a portion of the VAC black sponge was placed within the wound and the VAC dressing placed in a standard fashion. It was connected to suction, then to the VAC bedside machine. There was no evidence of leak. The patient tolerated the procedure without apparent complication. Sponge needle and instrument counts were correct at the end of the case. The patient was transported to PACU in stable condition.
--- NOTE | 2017-12-20 18:29 | P.PNADD ---
Addendum to Inpatient Note Additional information: attempted t see the pt - she is in OR will see tomorrow
[2017-12-20] MEDS ORDERED: *morphine SULFATE 4 MG/ML PERIprocedure ONLY ONE ×2 (18:42→18:50)
[2017-12-20] MEDS ORDERED: *Meperidine Inj 25 MG/ML Vial PERIprocedural Use ONLY ONE (18:44)
[2017-12-20] MEDS ORDERED: fentaNYL Citrate Inj 100 MCG/2 ML Ampul ONE (18:54)
[2017-12-20] MEDS ORDERED: Morphine Inj 4 MG/ML Vial ONE (18:55)
[2017-12-20] MEDS ORDERED: HYDROmorphone PF Inj 2 MG/ML Vial ONE (18:56)
[2017-12-20] MEDS ORDERED: diphenhydrAMINE HCl 50 MG/ML VIAL IV.PUSH ONE (19:03)
[2017-12-21] MEDS: Vancomycin Inj 1,250 MG in Sodium Chlor 0.9% Inj 250 ML IV.SIG SCH ×2 (01:09→12:09)
[2017-12-21] MEDS: Morphine Sulfate Inj 2 MG/ML Vial IV.PUSH PRN ×4 (02:10→15:24)
[2017-12-21] MEDS: Aztreonam Inj 2 GM in Sodium Chloride 0.9% Inj 100 ML IV.SIG SCH ×2 (05:16→14:17)
[2017-12-21] MEDS: Sod Chloride 0.9% Inj 1,000 ML IV.CONT SCH ×3 (05:17→14:22)
[2017-12-21] MEDS: Senna/Docusate Sodium 8.6/50 MG Tablet PO SCH ×2 (09:04→20:28)
--- NOTE | 2017-12-21 11:36 | P.PNIM ---
Subjective Interval history: Patient seen with grinder operator tool. Patient reports the pain is controlled. Denies any chest pain or shortness of breath. Physical Exam Vital signs: Vital Signs 12/20/17 12:00 12/20/17 18:35 12/20/17 18:45 Temperature 98.1 F 98.1 F 98.1 F Pulse Rate 84 101 H 108 H Respiratory Rate 18 14 14 Blood Pressure 125/76 192/121 H 152/84 H Pulse Oximetry 99 10 L 100 12/20/17 19:00 12/20/17 19:15 12/20/17 20:00 Temperature 98.1 F 98.1 F 97.8 F Pulse Rate 114 H 106 H 94 H Respiratory Rate 14 14 18 Blood Pressure 126/67 121/69 134/78 Pulse Oximetry 97 97 98 12/21/17 00:00 12/21/17 04:00 12/21/17 08:00 Temperature 98.2 F 98.2 F Pulse Rate 90 77 Respiratory Rate 18 18 18 Blood Pressure 101/58 L 140/86 Pulse Oximetry 96 98 Intake & Output 12/20/17 12/21/17 12/21/17 18:59 06:59 18:59 Intake Total 2682.5 / 2682.5 1362.5 / 1362.5 Output Total 20 / 20 125 / 125 Balance 2662.5 / 2662.5 1237.5 / 1237.5 Intake: IV 1362.5 / 1362.5 1362.5 / 1362.5 NS Inj 1,000 ML @ 100 mls/hr IV 1000 / 1000 900 / 900 .CONT .Q10H [facility] Rx#:[id number] Azactam Inj 2 GM In NS Inj 100 100 / 100 200 / 200 ML @ 200 mls/hr IV.SIG Q8H [facility] Rx#:[id number] Vancomycin Inj 1,250 MG In NS 262.5 / 262.5 262.5 / 262.5 Inj 250 ML @ 250 mls/hr IV.SIG Q12H [facility] Rx#:[id number] Oral 620 / 620 Anesthesia Amount 700 / 700 Output: Estimated Blood Loss 20 / 20 Wound Vac Amount 125 / 125 Posterior Neck 125 / 125 Other: Mode Setting Posterior Neck Continuous Continuous Continuous # Voids 2 2 Narrative: GENERAL: Patient sitting up in bed. Appears comfortable. SKIN: Warm and dry. HEAD: Normocephalic. EYES: No scleral icterus. No injection or drainage. NECK: Supple, trachea midline. No JVD. Posterior neck with wound VAC in place. surrounding erythema CARDIOVASCULAR: Regular rate and rhythm without murmurs, gallops, or rubs. RESPIRATORY: Breath sounds equal bilaterally. No accessory muscle use. GASTROINTESTINAL: Abdomen soft, non-tender, nondistended. MUSCULOSKELETAL: No cyanosis, or edema. BACK: Nontender without obvious deformity. No CVA tenderness. Results - Labs CBC & Chem 7: 12/19/17 05:28 12/19/17 05:28 Microbiology 12/17/17 16:20 Blood - Peripheral Aerobic Blood Culture - Preliminary No growth in 4 days 12/17/17 16:20 Blood - Peripheral Anaerobic Blood Culture - Preliminary No growth in 4 days 12/17/17 15:25 Blood - Peripheral Aerobic Blood Culture - Preliminary No growth in 4 days 12/17/17 15:25 Blood - Peripheral Anaerobic Blood Culture - Preliminary No growth in 4 days 12/18/17 11:00 Wound - Neck Gram Stain - Final 12/18/17 11:00 Wound - Neck Wound Culture - Final S. aureus MRSA Assessment and Plan - Assessment (1) Cellulitis, neck Code(s): L03.221 - Cellulitis of neck Status: Acute (2) Intractable pain Code(s): R52 - Pain, unspecified Status: Acute - Plan Patient is a 47-year-old 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 History of homelessness. No known significant past medical history. Presented to the emergency room with a complaint of a hard painful red bump on the back of her neck for over 5 days. //posterior Neck MRSA cellulitis: -CT Neck w/ large area of soft tissue edema extending into musculature, however no abscess. Repeat ultrasound 12/19 again indicated no abscess. -S/p Vanc in ER, will continue w/ IV Abx. = 12/20. Follow-up cultures from admission. Continue IV antibiotics. Ultrasound 12/19 with phlegmon. This is obviously infected and will need to be addressed. Will consult general surgery. = 12/21. Postoperative day 1 incision and drainage with wound VAC placement. Continue IV antibiotics as per infectious disease. Follow-up ID recommendations. Appreciate assistance. // Intractable Pain: c/o ongoing pain and headache, secondary to above, continue w/ analgesics/antiemetics as needed // DVT Prophylaxis: SCD/Teds Discharge Planning: Case management following. Pending cultures. May need wound VAC May need IV antibiotics. = Pending ID and general surgery clearance.
[2017-12-21] MEDS ORDERED: Pharmacy Ordered Lab Info OTHER ONE (11:45)
--- NOTE | 2017-12-21 12:04 | P.PNGS ---
Subjective Patient reports: other (Sitting up in bed. Appears comfortable. Her son translates for me at bedside.) Physical Exam Vital signs: Vital Signs 12/20/17 18:35 12/20/17 18:45 12/20/17 19:00 Temperature 98.1 F 98.1 F 98.1 F Pulse Rate 101 H 108 H 114 H Respiratory Rate 14 14 14 Blood Pressure 192/121 H 152/84 H 126/67 Pulse Oximetry 10 L 100 97 12/20/17 19:15 12/20/17 20:00 12/21/17 00:00 Temperature 98.1 F 97.8 F 98.2 F Pulse Rate 106 H 94 H 90 Respiratory Rate 14 18 18 Blood Pressure 121/69 134/78 101/58 L Pulse Oximetry 97 98 96 12/21/17 04:00 12/21/17 08:00 Temperature 98.2 F Pulse Rate 77 Respiratory Rate 18 18 Blood Pressure 140/86 Pulse Oximetry 98 Intake & Output 12/20/17 12/21/17 12/21/17 18:59 06:59 18:59 Intake Total 2682.5 / 2682.5 1362.5 / 1362.5 Output Total 20 / 20 125 / 125 Balance 2662.5 / 2662.5 1237.5 / 1237.5 Intake: IV 1362.5 / 1362.5 1362.5 / 1362.5 NS Inj 1,000 ML @ 100 mls/hr IV 1000 / 1000 900 / 900 .CONT .Q10H [facility] Rx#:[id number] Azactam Inj 2 GM In NS Inj 100 100 / 100 200 / 200 ML @ 200 mls/hr IV.SIG Q8H [facility] Rx#:[id number] Vancomycin Inj 1,250 MG In NS 262.5 / 262.5 262.5 / 262.5 Inj 250 ML @ 250 mls/hr IV.SIG Q12H [facility] Rx#:[id number] Oral 620 / 620 Anesthesia Amount 700 / 700 Output: Estimated Blood Loss 20 / 20 Wound Vac Amount 125 / 125 Posterior Neck 125 / 125 Other: Mode Setting Posterior Neck Continuous Continuous Continuous # Voids 2 2 Narrative: VAC dressing intact. Mild residual erythema superiorly. Assessment and Plan - Assessment (1) Neck abscess Code(s): L02.11 - Cutaneous abscess of neck Status: Acute Plan: 47 year old female with large neck abscess -No improvement after several does of IV antibiotic -NPO -Plan for OR this evening -Patient is marked; obtain consents -Will notify the OR and make arrangements -Thank you for this consult; We will continue to follow - Plan Postop day 1 status post incision, drainage, debridement posterior neck abscess with placement of VAC dressing. The area appears improved. Plan continue VAC dressing, antibiotics as directed by infectious disease. VAC dressing change at bedside following administration of pain medication tomorrow by bedside RN and/or wound care nurse.
--- NOTE | 2017-12-21 15:59 | P.CONID ---
History of Present Illness Service: ID Consult date: 12/21/17 Requesting Physician: Cholo Leonard Reason for Consult: neck abscess Primary Care Provider: UNKNOWN History of Present Illness: 47 yo F deaf and blind, communication via special interpreteer at b/s presented with few days of posterior neck tender lesion that was getting wrse, inclreasing swelling, pain and tenderness + fever, chills no leukocytosis, normal temp on presentation She nderwent I+D and VAC placement and cultures of ous showed MRSA I reviewed report Review of Systems All other systems reviewed negative except as stated in [facility] PMFSH - History History Provided By: Patient - Medical History Medical History: Medical History (Last Updated 12/20/17 @ 13:59 by ESPERANZA Sharp) Abscess Encounter for recheck of abscess following incision and drainage H/O drainage of abscess - Tobacco History Second Hand Smoke Exposure: Yes Tobacco Use In Past 30 Days: Yes Smoking Status: Current every day smoker Tobacco Type: Cigarettes - Alcohol History How Often Do You Have a Drink Containing Alcohol: 2 to 4 times a month - Substance Use History Substance History: Active Abuse - Substance Use Type Marijuana Status: Active Route Used: Inhalation Reason for Use: Calm Down - Travel History Recent Travel in the [place] Within the Last 8 Weeks: No Recent Travel Out of the Country Within the Last 8 Weeks: No Medications and Allergies Active Medications: Active Medications Hydrocodone Bitart/Acetaminophen ([place] 5/325) 1 tab PO Q4H PRN PRN Reason: pain 1-5 Hydrocodone Bitart/Acetaminophen ([place] 10/325) 1 tab PO Q4H PRN PRN Reason: pain 6-10 Al Hydroxide/Mg Hydroxide (Milk Of Magnesia Liq) 30 ml PO Q12H PRN PRN Reason: Mild Constipation Bisacodyl (Dulcolax Supp) 10 mg RECTAL DAILY PRN PRN Reason: SEVERE CONSITIPATION Aztreonam 2 gm/ Sodium (Chloride) 100 mls @ 200 mls/hr IV.SIG Q8H [facility] Last Infusion: 12/21/17 15:24 Dose: Infused Vancomycin HCl 1,250 mg/ (Sodium Chloride) 262.5 mls @ 250 mls/hr IV.SIG Q12H [facility] Last Infusion: 12/21/17 14:30 Dose: Infused Lactulose (Lactulose Liq) 30 ml PO DAILY PRN PRN Reason: SEVERE CONSITIPATION Miscellaneous Information ([facility]) 1 each OTHER UNSCH PRN PRN Reason: SEE LABEL COMMENTS Stop: 12/21/17 18:35 Miscellaneous Information ([facility] Ordered Lab Info) 0 each OTHER ONCE ONE Stop: 12/22/17 11:46 Morphine Sulfate (Morphine Inj) 2 mg IV.PUSH Q4H PRN PRN Reason: breakthrough pain Last Admin: 12/21/17 15:24 Dose: 2 mg Ondansetron HCl (Zofran Inj) 4 mg IV.PUSH Q6H PRN PRN Reason: NAUSEA OR VOMITING Pharmacy Profile Note (Vancomycin Consult Pharmacy) 1 each OTHER UNSCH PRN PRN Reason: Pharmacy to dose Prochlorperazine Edisylate (Compazine Inj) 10 mg IV.PUSH Q6H PRN PRN Reason: NAUSEA/VOMITING Last Admin: 12/17/17 21:29 Dose: 10 mg Senna/Docusate Sodium (Mercedes-Colace) 1 tab PO BID [facility] Last Admin: 12/21/17 09:04 Dose: 1 tab Sennosides (Senokot) 17.2 mg PO Q12H PRN PRN Reason: Moderate Constipation Allergies Allergy/AdvReac Type Severity Reaction Status Date / Time penicillin G Allergy Unknown Unverified 07/15/17 16:53 Home Medications Medication Instructions Recorded Confirmed Type No Known Home Medications 12/17/17 12/17/17 History Exam Vital signs: Vital Signs 12/20/17 18:35 12/20/17 18:45 12/20/17 19:00 Temperature 98.1 F 98.1 F 98.1 F Pulse Rate 101 H 108 H 114 H Respiratory Rate 14 14 14 Blood Pressure 192/121 H 152/84 H 126/67 Pulse Oximetry 10 L 100 97 12/20/17 19:15 12/20/17 20:00 12/21/17 00:00 Temperature 98.1 F 97.8 F 98.2 F Pulse Rate 106 H 94 H 90 Respiratory Rate 14 18 18 Blood Pressure 121/69 134/78 101/58 L Pulse Oximetry 97 98 96 12/21/17 04:00 12/21/17 08:00 12/21/17 12:00 Temperature 98.2 F 97.8 F 98.0 F Pulse Rate 77 77 69 Respiratory Rate 18 18 18 Blood Pressure 140/86 163/63 H 138/83 Pulse Oximetry 98 99 99 Intake & Output 12/20/17 12/21/17 12/21/17 18:59 06:59 18:59 Intake Total 2682.5 / 2682.5 1362.5 / 1362.5 1362.5 / 1362.5 Output Total 20 / 20 125 / 125 Balance 2662.5 / 2662.5 1237.5 / 1237.5 1362.5 / 1362.5 Intake: IV 1362.5 / 1362.5 1362.5 / 1362.5 1362.5 / 1362.5 NS Inj 1,000 ML @ 100 mls/hr IV 1000 / 1000 900 / 900 1000 / 1000 .CONT .Q10H [facility] Rx#:[id number] Azactam Inj 2 GM In NS Inj 100 100 / 100 200 / 200 100 / 100 ML @ 200 mls/hr IV.SIG Q8H [facility] Rx#:[id number] Vancomycin Inj 1,250 MG In NS 262.5 / 262.5 262.5 / 262.5 262.5 / 262.5 Inj 250 ML @ 250 mls/hr IV.SIG Q12H [facility] Rx#:[id number] Oral 620 / 620 Anesthesia Amount 700 / 700 Output: Estimated Blood Loss 20 / 20 Wound Vac Amount 125 / 125 Posterior Neck 125 / 125 Other: Mode Setting Posterior Neck Continuous Continuous Continuous # Voids 2 2 - Constitutional no acute distress, average body habitus - Routine HEENT Exam Head: Present: normocephalic, atraumatic Eye: Present: EOMI, PERRL ENT: Present: mucous membranes moist, oropharynx clear. Absent: dentition normal (poor dentition) - Routine Neck Exam Present: supple. Absent: JVD, lymphadenopathy Comments: large defect on posterior neck covered with VAC with srosng d/c Some induration present on right superios aspect - Routine Respiratory Exam Present: decreased breath sounds, CTA bilaterally. Absent: accessory muscle use - Routine Cardiovascular Exam Present: RRR, S1, S2. Absent: murmur, gallop - Routine Abdominal Exam Present: soft, normoactive bowel sounds. Absent: tenderness, distended, organomegaly, mass - Routine Extremities Exam Absent: cyanosis, clubbing, edema - Routine Skin Exam Present: dry, warm, wounds (with VAC in place post neck) - Routine Neurological Exam Present: alert, oriented X3, moving all extremities. Absent: CN II-XII intact, vision grossly intact, hearing grossly intact, normal speech (disarthric) - Routine Psychiatric Exam Present: normal affect, normal thought process, cooperative Results - Labs CBC & Chem 7: 12/19/17 05:28 12/19/17 05:28 Labs: Laboratory Results - last 24 hr 12/21/17 11:49 Vancomycin Trough 9.9 - Imaging Soft Tissue Neck CT 12/17/17 16:09 CONCLUSION: Ill-defined posterior superficial soft tissue edema extending into the posterior musculature. No organized abscess identified. Neck Ultrasound 12/19/17 00:00 CONCLUSION: 1. Phlegmon without evidence of abscess Assessment and Plan - Plan Large posterior neck abscess, phlegmon - s/p I+D MRSA in cultures dc azactam cont vancomycin anticipate transition to PO (clindamycin) when ready to be d/c'd dw Pt via bedside historic interpreter
[2017-12-22] MEDS: Vancomycin Inj 1,250 MG in Sodium Chlor 0.9% Inj 250 ML IV.SIG SCH ×2 (00:47→12:27)
[2017-12-22 07:14] LABS: Baso # (Auto) 0.1 th/mm3 (0.0-0.2); Baso % (Auto) 1.5 % (0.0-2.0); Eos # (Auto) 0.3 th/mm3 (0.0-0.4); Eos % (Auto) 4.3 % (0.0-4.0); Hematocrit 35.8 % (35.0-46.0); Hemoglobin 12.1 gm/dL (11.6-15.3); Lymph # (Auto) 2.6 th/mm3 (1.0-4.8); Lymph % (Auto) 35.1 % (9.0-44.0); Mean Corpuscular HGB Conc 33.8 % (32.0-36.0); Mean Corpuscular Volume 91.8 fL (80.0-100.0); Mean Platelet Volume 7.9 fL (7.0-11.0); Mono # (Auto) 0.7 th/mm3 (0.0-0.9); Mono % (Auto) 9.7 % (0.0-8.0); Neut # (Auto) 3.7 th/mm3 (1.8-7.7); Neut % (Auto) 49.4 % (16.0-70.0); Platelet Count 309 th/mm3 (150-450); Red Cell Distribution Width 12.8 % (11.6-17.2); White Blood Count 7.4 th/mm3 (4.0-11.0)
[2017-12-22 07:34] LABS: Anion Gap 9 meq/L (5-15); Blood Urea Nitrogen 6 mg/dL (7-18); Calcium 8.3 mg/dL (8.5-10.1); Carbon Dioxide 27.6 meq/L (21.0-32.0); Chloride 102 meq/L (98-107); Glomerular Filtration Rate Greater Than 89 mL/min (>89); Glucose,Random 92 mg/dL (74-106); Magnesium 1.8 mg/dL (1.5-2.5); Potassium 3.7 meq/L (3.5-5.1); Sodium 139 meq/L (136-145)
[2017-12-22 07:35] LABS: Phosphorus 2.8 mg/dL (2.5-4.9)
[2017-12-22] MEDS: Morphine Sulfate Inj 2 MG/ML Vial IV.PUSH PRN (09:17)
[2017-12-22] MEDS: Senna/Docusate Sodium 8.6/50 MG Tablet PO SCH (09:29)
[2017-12-22 09:45] VITALS: O2SAT 98
[2017-12-22] MEDS ORDERED: Pharmacy Ordered Lab Info OTHER ONE (11:45)
--- NOTE | 2017-12-22 11:52 | P.DCO ---
- Home Health Nursing Instructions: posterior neck--- 4x4 damp to dry dressing; change BID and PRN Okay to shower in between dressing change; remove packing first and replace after shower Patient blind and deaf - Case Management Consult Yes - Certification I have seen patient Venus Rodriguez on 12/22/17. My clinical findings support the need for the requested home health care services because: Limited mobility due to disease progression I certify that my clinical findings support that this patient is homebound because: Post-op weakness
--- NOTE | 2017-12-22 11:57 | P.PNGS ---
Subjective Interval history: Director Of Web Marketing Tor at bedside RN Kristin at bedside Mrs. Rodriguez nervous to get Wound Vac off but does want to try to go home today Physical Exam Vital signs: Vital Signs 12/21/17 12:00 12/21/17 16:00 12/21/17 20:00 Temperature 98.0 F 98.2 F 97.8 F Pulse Rate 69 76 81 Respiratory Rate 18 18 16 Blood Pressure 138/83 138/85 168/92 H Pulse Oximetry 99 99 97 12/22/17 00:00 12/22/17 04:00 12/22/17 08:00 Temperature 97.8 F 98.1 F 97.3 F L Pulse Rate 67 74 80 Respiratory Rate 17 18 17 Blood Pressure 145/83 H 169/93 H 192/107 H Pulse Oximetry 99 99 98 Intake & Output 12/21/17 12/22/17 12/22/17 18:59 06:59 18:59 Intake Total 2052.5 / 2052.5 862.5 / 862.5 Balance 2052.5 / 2052.5 862.5 / 862.5 Weight 55.79 kg Intake: IV 1962.5 / 1962.5 262.5 / 262.5 NS Inj 1,000 ML @ 100 mls/hr IV 1600 / 1600 .CONT .Q10H MARYAN Rx#:[id number] Azactam Inj 2 GM In NS Inj 100 100 / 100 ML @ 200 mls/hr IV.SIG Q8H MARYAN Rx#:[id number] Vancomycin Inj 1,250 MG In NS 262.5 / 262.5 262.5 / 262.5 Inj 250 ML @ 250 mls/hr IV.SIG Q12H MARYAN Rx#:[id number] Oral 90 / 90 600 / 600 Other: Mode Setting Posterior Neck Continuous Continuous Continuous # Voids 3 Narrative: Alert and awake Posterior neck--- Wound Vac removed ---- area inside wound is clear; no residual exudate; superior area of periwound still red but much less than on admission. Area packed with moist 4x4 and dry dressing over. Tape applied. The patient tolerated the dressing change well. Results - Labs 12/22/17 06:14 12/22/17 06:14 Laboratory Results - last 24 hr 12/21/17 12/22/17 12/22/17 11:49 06:14 06:14 WBC 7.4 RBC 3.90 L Hgb 12.1 Hct 35.8 MCV 91.8 MCH 31.0 MCHC 33.8 RDW 12.8 Plt Count 309 D MPV 7.9 Neut % (Auto) 49.4 Lymph % (Auto) 35.1 [place] % (Auto) 9.7 H Eos % (Auto) 4.3 H Baso % (Auto) 1.5 Neut # (Auto) 3.7 Lymph # (Auto) 2.6 [place] # (Auto) 0.7 Eos # (Auto) 0.3 Baso # (Auto) 0.1 WBC Differential . Differential Comment Auto diff final Sodium 139 Potassium 3.7 Chloride 102 Carbon Dioxide 27.6 Anion Gap 9 BUN 6 L Creatinine 0.60 Estimated GFR Greater than 89 Random Glucose 92 Calcium 8.3 L Phosphorus 2.8 Magnesium 1.8 Albumin 3.0 L Vancomycin Trough 9.9 - Imaging Imaging: ITS Impressions Soft Tissue Neck CT 12/17/17 16:09 CONCLUSION: Ill-defined posterior superficial soft tissue edema extending into the posterior musculature. No organized abscess identified. Neck Ultrasound 12/19/17 00:00 CONCLUSION: 1. Phlegmon without evidence of abscess Assessment and Plan - Assessment (1) Neck abscess Code(s): L02.11 - Cutaneous abscess of neck Status: Acute Plan: 47 year old female with large neck abscess; POD2 I&D -Wound Vac removed; wet to dry dressing applied -Antibiotics per ID--- will likely transition to PO -CM consult and Face to face complete for HHC -GS clear for DC; follow up 1-2 weeks - Plan Postop I and D Debridement posterior chronic neck abscess. Ok for DC with [facility] for dressing changes. Antibiotics per ID recommendations. The exam, history, and the medical decision-making described in the above note were completed with the assistance of the mid-level provider. I reviewed and agree with the findings presented. I attest that I had a [id number] encounter with the patient on the same day, and personally performed and documented my assessment and findings in the medical record.
[2017-12-22 13:15] VITALS: BP 135/87; PULSE 85; RESP 18; TEMP 97.8
--- NOTE | 2017-12-22 15:05 | P.PNID ---
Subjective Remarks: via spanish interpreter doing bettter no pain no fever no new c/o dw Dr Baker Antibiotics: vanco Allergies/Adverse Reactions: Allergies penicillin G Allergy (Unknown, Unverified 07/15/17 16:53) Objective Vital Signs 12/21/17 16:00 12/21/17 20:00 12/22/17 00:00 Temperature 98.2 F 97.8 F 97.8 F Pulse Rate 76 81 67 Respiratory Rate 18 16 17 Blood Pressure 138/85 168/92 H 145/83 H Pulse Oximetry 99 97 99 12/22/17 04:00 12/22/17 08:00 12/22/17 12:00 Temperature 98.1 F 97.3 F L 97.8 F Pulse Rate 74 80 85 Respiratory Rate 18 17 18 Blood Pressure 169/93 H 192/107 H 135/87 Pulse Oximetry 99 98 98 Intake & Output 12/21/17 12/22/17 12/22/17 18:59 06:59 18:59 Intake Total 2.5 / 2.5 862.5 / 862.5 262.5 / 262.5 Balance 2052.5 / 2052.5 862.5 / 862.5 262.5 / 262.5 Weight 55.79 kg Intake: IV 2.5 / 2.5 262.5 / 262.5 262.5 / 262.5 NS Inj 1,000 ML @ 100 mls/hr IV 1600 / 1600 .CONT .Q10H MARYAN Rx#:[id number] Azactam Inj 2 GM In NS Inj 100 100 / 100 ML @ 200 mls/hr IV.SIG Q8H MARYAN Rx#:[id number] Vancomycin Inj 1,250 MG In NS 262.5 / 262.5 262.5 / 262.5 262.5 / 262.5 Inj 250 ML @ 250 mls/hr IV.SIG Q12H MARYAN Rx#:[id number] Oral 90 / 90 600 / 600 Other: Mode Setting Posterior Neck Continuous Continuous Continuous # Voids 3 12/17/17 16:20 Blood - Peripheral Aerobic Blood Culture - Final No growth in 5 days 12/17/17 16:20 Blood - Peripheral Anaerobic Blood Culture - Final No growth in 5 days 12/17/17 15:25 Blood - Peripheral Aerobic Blood Culture - Final No growth in 5 days 12/17/17 15:25 Blood - Peripheral Anaerobic Blood Culture - Final No growth in 5 days 12/18/17 11:00 Wound - Neck Gram Stain - Final 12/18/17 11:00 Wound - Neck Wound Culture - Final S. aureus MRSA Lab - Hematology Results 12/22/17 06:14 WBC 7.4 RBC 3.90 L Hgb 12.1 Hct 35.8 MCV 91.8 MCH 31.0 MCHC 33.8 RDW 12.8 Plt Count 309 D MPV 7.9 Neut % (Auto) 49.4 Lymph % (Auto) 35.1 [place] % (Auto) 9.7 H Eos % (Auto) 4.3 H Baso % (Auto) 1.5 Neut # (Auto) 3.7 Lymph # (Auto) 2.6 [place] # (Auto) 0.7 Eos # (Auto) 0.3 Baso # (Auto) 0.1 WBC Differential . Differential Comment Auto diff final Lab - Chemistry Results 12/22/17 06:14 Sodium 139 Potassium 3.7 Chloride 102 Carbon Dioxide 27.6 Anion Gap 9 BUN 6 L Creatinine 0.60 Estimated GFR Greater than 89 Random Glucose 92 Calcium 8.3 L Phosphorus 2.8 Magnesium 1.8 Albumin 3.0 L Imaging: ITS Impressions Soft Tissue Neck CT 12/17/17 16:09 CONCLUSION: Ill-defined posterior superficial soft tissue edema extending into the posterior musculature. No organized abscess identified. Neck Ultrasound 12/19/17 00:00 CONCLUSION: 1. Phlegmon without evidence of abscess Physical Exam: GENERAL: NAD SKIN: Warm and dry. No rash post neck wound packed with dry serosang dc + induration on superior aspect EYES: Pupils equal and round. No scleral icterus. No injection or drainage. ENT: No nasal bleeding or discharge. Mucous membranes pink and moist. NECK: Trachea midline. No JVD. CARDIOVASCULAR: Regular rate and rhythm. No meumurs RESPIRATORY: No accessory muscle use. Clear to auscultation. Breath sounds equal bilaterally. GASTROINTESTINAL: Abdomen soft, non-tender, nondistended. MUSCULOSKELETAL: Extremities without clubbing, cyanosis, or edema. NEUROLOGICAL: Awake and alert. PSYCHIATRIC: Appropriate mood and affect; insight and judgment normal. Assessment and Plan - Plan Large posterior neck abscess, phlegmon - s/p I+D MRSA in cultures switch to PO clindamycin 300 mg qid x 10 days Pt was counselled on clidamycin side effects including C.diff and was instructed to report to [facility] and other GI smx OK to [facility] Horacio Delaney Pt via bedside spanish interpreter
--- NOTE | 2017-12-22 15:29 | P.PNIM ---
Subjective Interval history: Patient seen with aid of voice professor. Says she is feeling well. Reports pain is under control. Denies any chest pain or shortness of breath. Denies nausea vomiting. Denies constipation or diarrhea. Physical Exam Vital signs: Vital Signs 12/21/17 16:00 12/21/17 20:00 12/22/17 00:00 Temperature 98.2 F 97.8 F 97.8 F Pulse Rate 76 81 67 Respiratory Rate 18 16 17 Blood Pressure 138/85 168/92 H 145/83 H Pulse Oximetry 99 97 99 12/22/17 04:00 12/22/17 08:00 12/22/17 12:00 Temperature 98.1 F 97.3 F L 97.8 F Pulse Rate 74 80 85 Respiratory Rate 18 17 18 Blood Pressure 169/93 H 192/107 H 135/87 Pulse Oximetry 99 98 98 Intake & Output 12/21/17 12/22/17 12/22/17 18:59 06:59 18:59 Intake Total 2.5 / 2.5 862.5 / 862.5 262.5 / 262.5 Balance 2052.5 / 2.5 862.5 / 862.5 262.5 / 262.5 Weight 55.79 kg Intake: IV 2.5 / 2.5 262.5 / 262.5 262.5 / 262.5 NS Inj 1,000 ML @ 100 mls/hr IV 1600 / 1600 .CONT .Q10H MARYAN Rx#:[id number] Azactam Inj 2 GM In NS Inj 100 100 / 100 ML @ 200 mls/hr IV.SIG Q8H MARYAN Rx#:[id number] Vancomycin Inj 1,250 MG In NS 262.5 / 262.5 262.5 / 262.5 262.5 / 262.5 Inj 250 ML @ 250 mls/hr IV.SIG Q12H MARYAN Rx#:[id number] Oral 90 / 90 600 / 600 Other: Mode Setting Posterior Neck Continuous Continuous Continuous # Voids 3 Narrative: GENERAL: Patient sitting up in bed. Appears comfortable. SKIN: Warm and dry. HEAD: Normocephalic. EYES: No scleral icterus. No injection or drainage. NECK: Supple, trachea midline. No JVD. Wound VAC is been removed. Wound is dressed with very minimal surrounding erythema. Dressing clean dry and intact. CARDIOVASCULAR: Regular rate and rhythm without murmurs, gallops, or rubs. RESPIRATORY: Breath sounds equal bilaterally. No accessory muscle use. GASTROINTESTINAL: Abdomen soft, non-tender, nondistended. MUSCULOSKELETAL: No cyanosis, or edema. BACK: Nontender without obvious deformity. No CVA tenderness. Results - Labs CBC & Chem 7: 12/22/17 06:14 12/22/17 06:14 Laboratory Results - last 24 hr 12/22/17 12/22/17 12/22/17 06:14 06:14 11:13 WBC 7.4 RBC 3.90 L Hgb 12.1 Hct 35.8 MCV 91.8 MCH 31.0 MCHC 33.8 RDW 12.8 Plt Count 309 D MPV 7.9 Neut % (Auto) 49.4 Lymph % (Auto) 35.1 [place] % (Auto) 9.7 H Eos % (Auto) 4.3 H Baso % (Auto) 1.5 Neut # (Auto) 3.7 Lymph # (Auto) 2.6 [place] # (Auto) 0.7 Eos # (Auto) 0.3 Baso # (Auto) 0.1 WBC Differential . Differential Comment Auto diff final Sodium 139 Potassium 3.7 Chloride 102 Carbon Dioxide 27.6 Anion Gap 9 BUN 6 L Creatinine 0.60 Estimated GFR Greater than 89 Random Glucose 92 Calcium 8.3 L Phosphorus 2.8 Magnesium 1.8 Albumin 3.0 L Vancomycin Trough 10.7 H Microbiology 12/17/17 16:20 Blood - Peripheral Aerobic Blood Culture - Final No growth in 5 days 12/17/17 16:20 Blood - Peripheral Anaerobic Blood Culture - Final No growth in 5 days 12/17/17 15:25 Blood - Peripheral Aerobic Blood Culture - Final No growth in 5 days 12/17/17 15:25 Blood - Peripheral Anaerobic Blood Culture - Final No growth in 5 days Assessment and Plan - Assessment (1) Cellulitis, neck Code(s): L03.221 - Cellulitis of neck Status: Acute (2) Intractable pain Code(s): R52 - Pain, unspecified Status: Acute - Plan Patient is a 47-year-old 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 History of homelessness. No known significant past medical history. Presented to the emergency room with a complaint of a hard painful red bump on the back of her neck for over 5 days. //posterior Neck MRSA cellulitis: -CT Neck w/ large area of soft tissue edema extending into musculature, however no abscess. Repeat ultrasound 12/19 again indicated no abscess. -S/p Vanc in ER, will continue w/ IV Abx. = 12/20. Follow-up cultures from admission. Continue IV antibiotics. Ultrasound 12/19 with phlegmon. This is obviously infected and will need to be addressed. Will consult general surgery. = 12/21. Postoperative day 1 incision and drainage with wound VAC placement. Continue IV antibiotics as per infectious disease. Follow-up ID recommendations. Appreciate assistance. = 12/22. Wound VAC has been removed. Patient has been cleared by infectious disease to go home on by mouth clindamycin. Cleared by general surgery go home with home health. We will follow with general surgery as outpatient. Appreciate telesales consultant assistance. // Intractable Pain: c/o ongoing pain and headache, secondary to above, continue w/ analgesics/antiemetics as needed // DVT Prophylaxis: SCD/Teds Discharge Planning: Case management following. Pending cultures. Discharge home on by mouth antibiotics as per infectious disease. Follow up with general surgery as outpatient.
--- NOTE | 2017-12-22 15:33 | P.DS ---
Date of admission: 12/18/17 11:16 Primary care physician: UNKNOWN Brief History from admission: This is a 47-year-old Deaf/Blind female w/ no significant PMH reported who presented to the ER w/ complaints of neck pain x5 days. 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 Reports increasing pain and swelling to the back of neck, pain is constant, severe, 10/10, non-radiating, associated w/ headache. Denies fever or chills. On arrival, BP 161/91, HR 80, Temp 99.0. CBC unremarkable. Chemistry essentially unremarkable. Lactic Acid normal. CT Neck with ill-defined superficial soft tissue edema extending into posterior musculature, no abscess identified. S/p Vanc in ER. DS: Diagnosis - Discharge Diagnosis (1) Cellulitis, neck Status: Acute (2) Intractable pain Status: Acute DS: Medications - Discharge Medications Prescriptions: acetaminophen 650 mg PO Q6HR PRN 7 Days tab PRN Reason: Pain clindamycin HCl [Cleocin HCl] 300 mg PO QID 10 Days #40 cap DS: Summary Hospital Course: Patient was found to have posterior neck inflammation on CT, posterior neck phlegmon on ultrasound. She was started on antibiotics, and general surgery was consulted. Patient underwent incision and drainage with wound VAC placement. Wound returns MRSA sensitive to clindamycin. Patient will be discharged home with wet-to-dry dressings, prescription for clindamycin to complete treatment course as per infectious disease. She is to follow-up with general surgery as outpatient. For problem based summary from most recent progress note, please see below. Patient is a 47-year-old 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 History of homelessness. No known significant past medical history. Presented to the emergency room with a complaint of a hard painful red bump on the back of her neck for over 5 days. //posterior Neck MRSA cellulitis: -CT Neck w/ large area of soft tissue edema extending into musculature, however no abscess. Repeat ultrasound 12/19 again indicated no abscess. -S/p Vanc in ER, will continue w/ IV Abx. = 12/20. Follow-up cultures from admission. Continue IV antibiotics. Ultrasound 12/19 with phlegmon. This is obviously infected and will need to be addressed. Will consult general surgery. = 12/21. Postoperative day 1 incision and drainage with wound VAC placement. Continue IV antibiotics as per infectious disease. Follow-up ID recommendations. Appreciate assistance. = 12/22. Wound VAC has been removed. Patient has been cleared by infectious disease to go home on by mouth clindamycin. Cleared by general surgery go home with home health. We will follow with general surgery as outpatient. Appreciate [employer] consultant assistance. // Intractable Pain: c/o ongoing pain and headache, secondary to above, continue w/ analgesics/antiemetics as needed // DVT Prophylaxis: SCD/Teds - Time Spent with Patient Total time spent providing and/or coordinating discharge services: Greater than 30 minutes - Quality: VTE Deep Vein Thrombosis/Pulmonary Embolism Present on Admission: No Exam Vital signs: Vital Signs 12/21/17 16:00 12/21/17 20:00 12/22/17 00:00 Temperature 98.2 F 97.8 F 97.8 F Pulse Rate 76 81 67 Respiratory Rate 18 16 17 Blood Pressure 138/85 168/92 H 145/83 H Pulse Oximetry 99 97 99 12/22/17 04:00 12/22/17 08:00 12/22/17 12:00 Temperature 98.1 F 97.3 F L 97.8 F Pulse Rate 74 80 85 Respiratory Rate 18 17 18 Blood Pressure 169/93 H 192/107 H 135/87 Pulse Oximetry 99 98 98 Intake & Output 12/21/17 12/22/17 12/22/17 18:59 06:59 18:59 Intake Total 2051. / 2051.5 862.5 / 862.5 262.5 / 262.5 Balance 2051. / 2051.5 862.5 / 862.5 262.5 / 262.5 Weight 55.79 kg Intake: IV 2.5 / 2.5 262.5 / 262.5 262.5 / 262.5 NS Inj 1,000 ML @ 100 mls/hr IV 1600 / 1600 .CONT .Q10H MARYAN Rx#:[id number] Azactam Inj 2 GM In NS Inj 100 100 / 100 ML @ 200 mls/hr IV.SIG Q8H MARYAN Rx#:[id number] Vancomycin Inj 1,250 MG In NS 262.5 / 262.5 262.5 / 262.5 262.5 / 262.5 Inj 250 ML @ 250 mls/hr IV.SIG Q12H MARYAN Rx#:[id number] Oral 90 / 90 600 / 600 Other: Mode Setting Posterior Neck Continuous Continuous Continuous # Voids 3 Results Procedures completed during hospitalization: Incision and drainage of posterior neck abscess with wound VAC placement. Wound VAC subsequently removed.. Please see report. Labs on day of discharge: Labs from last 24 hours 12/22/17 12/22/17 12/22/17 11:13 06:14 06:14 WBC 7.4 RBC 3.90 L Hgb 12.1 Hct 35.8 MCV 91.8 MCH 31.0 MCHC 33.8 RDW 12.8 Plt Count 309 D MPV 7.9 Neut % (Auto) 49.4 Lymph % (Auto) 35.1 [place] % (Auto) 9.7 H Eos % (Auto) 4.3 H Baso % (Auto) 1.5 Neut # (Auto) 3.7 Lymph # (Auto) 2.6 [place] # (Auto) 0.7 Eos # (Auto) 0.3 Baso # (Auto) 0.1 WBC Differential . Differential Comment Auto diff final Sodium 139 Potassium 3.7 Chloride 102 Carbon Dioxide 27.6 Anion Gap 9 BUN 6 L Creatinine 0.60 Estimated GFR Greater than 89 Random Glucose 92 Calcium 8.3 L Phosphorus 2.8 Magnesium 1.8 Albumin 3.0 L Vancomycin Trough 10.7 H - Impressions ITS Impressions Soft Tissue Neck CT 12/17/17 16:09 CONCLUSION: Ill-defined posterior superficial soft tissue edema extending into the posterior musculature. No organized abscess identified. Neck Ultrasound 12/19/17 00:00 CONCLUSION: 1. Phlegmon without evidence of abscess Discharge Plan - Discharge Disposition Patient Disposition: /Home Health Service - Discharge Condition Condition: Good - Discharge Order Discharge Orders: Discharge Order (Routine); Ordered 12/22/17 Ordered By: Cholo Leonard - Discharge Details Anticipated Discharge Date: 12/22/17 - Physicians Team Primary Care Provider: UNKNOWN, Attending Provider: Cholo Leonard Other Providers: August Baker MD ; Laurie Katz MD
== END 2017-12-22 17:12 | disposition home health service (06) ==
LOC: NEDA 13:31 → NEPD 13:31 → NEPGCP 21:00 → N07 12-19 16:07
PROVIDERS: ADMIT Internal Medicine; ATTEND Internal Medicine